=== PATIENT | female | born 1930 ===

== ENCOUNTER 2016-10-07 11:12 | Inpatient (IN) | payer MEDICARE, MEDICAID ==
[2016-10-07] MEDS ORDERED: Albuterol-Ipratrop 3 mg / 0.5 (3 ml) UD INH STA (11:32)
--- NOTE | 2016-10-07 11:38 | ED PDOC ---
HPI: General Adult Time Seen by Provider: 10/07/16 11:21 Chief Complaint (Nursing): Weakness/Neurological Deficit Chief Complaint (Provider): Weakness History Per: Patient History/Exam Limitations: clinical condition Onset/Duration Of Symptoms: Days (2) Have you had recent travel within the past 21 days to any of the following countries: [place], [place], [place] or [place]?: No Current Symptoms Are (Timing): Still Present Additional Complaint(s): Pt. has had fever, dehydration, weakness for 2 days. [facility] as she is not eating as well. Pt. with dementia so baseline decreased responsiveness. Limited history and physical. Has mehta in place. Past Medical History Reviewed: Nursing Documentation, Vital Signs Vital Signs: Last Vital Signs Temp 99.3 F 10/07/16 11:48 Pulse 104 H 10/07/16 12:52 Resp 16 10/07/16 12:52 BP 123/73 10/07/16 12:52 Pulse Ox 98 10/07/16 13:45 - Medical History PMH: Alzheimer's Disease, Anxiety, Dementia, Depression, Diabetes, HTN, Hypercholesterolemia, Chronic Kidney Disease - Family History Family History: States: Unknown Family Hx - Living Arrangements Living Arrangements: Assisted/Assist Lvng - Social History Current smoker - smoking cessation education provided: No Alcohol: None Drugs: Denies - Home Medications Home Medications: Ambulatory Orders Medication Instructions Recorded Acetaminophen [Tylenol 325mg tab] 650 mg PO Q4H PRN 10/07/16 Acetaminophen [Tylenol 325mg tab] 650 mg PO Q4H PRN 10/07/16 Ascorbic Acid [Vitamin C 500 mg 500 mg PO DAILY 10/07/16 Tab] Aspirin [Aspirin Chewable] 81 mg PO DAILY 10/07/16 Atorvastatin [Lipitor] 10 mg PO HS 10/07/16 Bisacodyl [Fast Relief Laxative] 10 mg HI DAILY PRN 10/07/16 Divalproex [Depakote Sprinkles] 125 mg PO DAILY 10/07/16 Divalproex [Depakote Sprinkles] 125 mg PO QPM 10/07/16 Docusate [Colace] 200 mg PO DAILY 10/07/16 Donepezil [Aricept] 10 mg PO HS 10/07/16 Ergocalciferol (Vitamin D2) 50,000 unit PO WE 10/07/16 [Vitamin D2] Lactulose [Generlac] 30 ml PO BID 10/07/16 Losartan [Cozaar] 100 mg PO DAILY 10/07/16 Magnesium Hydroxide [Milk Of 30 ml PO HS PRN 10/07/16 Magnesia] Memantine [Namenda] 10 mg PO DAILY 10/07/16 Multivits,Ca,Minerals/Iron/FA 1 tab PO DAILY 10/07/16 [Thera-Tabs M Caplet] Mpdgj-[id number]-Lrin Ethyl Esters 1 GM 2 gm PO BID 10/07/16 [Lovaza] traMADol [Ultram] 50 mg PO Q12H 10/07/16 - Allergies Allergies/Adverse Reactions: Allergies Allergy/AdvReac Type Severity Reaction Status Date / Time Penicillins Allergy UNKNOWN Verified 07/06/16 02:35 Review of Systems Review Of Systems: ROS cannot be obtained secondary to pt's inabilty to answer questions. Physical Exam - Reviewed Nursing Documentation Reviewed: Yes Vital Signs Reviewed: Yes - Physical Exam Appears: Positive for: Uncomfortable Head Exam: Positive for: ATRAUMATIC, NORMAL INSPECTION, NORMOCEPHALIC Skin: Positive for: Normal Color, Warm, DRY Eye Exam: Positive for: PERRL ENT: Positive for: Other (?thrush mild oral ). Negative for: Nasal Congestion, Pharyngeal Erythema Neck: Positive for: Supple Cardiovascular/Chest: Positive for: Tachycardia. Negative for: Edema Respiratory: Positive for: Decreased Breath Sounds, Wheezing (mild b/l) Gastrointestinal/Abdominal: Positive for: Normal Exam, Soft. Negative for: Tenderness Back: Positive for: Other (sacral stage 1 ulcer/erythema). Negative for: L CVA Tenderness, R CVA Tenderness Extremity: Negative for: Tenderness, Pedal Edema Neurologic/Psych: Positive for: Other (pt. responsive to pain; not following commands; withdraws from pain) - Laboratory Results Result Diagrams: 10/07/16 11:57 10/07/16 12:49 Interpretation Of Abn Labs: trop mild elevation; probnp mild elevation; bun/cr elevation; wbc elevation - ECG ECG: Positive for: Interpreted By Me, Viewed By Me ECG Rhythm: Positive for: Sinus Tachycardia, Right Bundle Branch Block O2 Sat by Pulse Oximetry: 98 Pulse Ox Interpretation: Normal - Radiology X-Ray: Read By Radiologist X-Ray Interpretation: No Acute Disease - Progress ED Course And Treament: 1458: Stable. BP improving. Vitals improving. Pt. severe sepsis. Trop/ probnp elevation possble renal related and chronic cardiac issues. Dr. Bean made aware of findings. Will admit tele. Cardiology and Renal Consulted. Will give further orders when pt. reaches the floor. - Critical Care Total Time (In Min): 30 Documented Critical Care: Time excludes all time spent performint seperately billable procedures Disposition - Clinical Impression Clinical Impression: Severe sepsis, UTI (urinary tract infection), Renal insufficiency, Troponin I above reference range - Patient ED Disposition Is Patient to be Admitted: Yes Counseled Patient/Family Regarding: Studies Performed, Diagnosis - Disposition Disposition Time: 15:00 Condition: GUARDED - Pt Status Changed To: Hospital Disposition Of: Inpatient - Admit Certification Admit to Inpatient:: After my assessment, the patient will require hospitalization for at least two midnights. This is because of the severity of symptoms shown, intensity of services needed, and/or the medical risk in this patient being treated as an outpatient. - POA Present On Arrival: Pressure Ulcer (sacral stage 1)
[2016-10-07] MEDS ORDERED: Albuterol-Ipratrop 3 mg / 0.5 (3 ml) UD ONE (11:50)
[2016-10-07 11:57] LABS: ABG ALLEN TEST YES; ARTERIAL BLOOD GAS HCO3 25.6 mmol/L (21-28); ARTERIAL BLOOD GAS PH 7.49 (7.35-7.45); ARTERIAL BLOOD GAS PO2 67 mm/Hg (80-100)
[2016-10-07 12:28] LABS: BASO % 0.1 % (0.0-2.0); EOS % 0.1 % (0.0-4.0); HEMATOCRIT 59.2 % (34.0-47.0); LYMPH # 1.6 K/uL (1.0-4.3); MEAN CELL VOLUME 93.2 fl (81.0-99.0); MEAN CORPUSCULAR HEMOGLOBIN 30.5 pg (27.0-31.0); MEAN CORPUSCULAR HGB CONC 32.7 g/dL (33.0-37.0); MEAN PLATELET VOLUME 8.9 fl (7.2-11.7); MONO # 2.1 K/uL (0.0-0.8); MONO % 7.7 % (0.0-10.0); NEUT # 23.4 K/uL (1.8-7.0); NEUT % 86.1 % (50.0-75.0); NRBC % 0.1 % (0.0-0.0); PLATELET COUNT 289 K/uL (130-400); RED CELL DISTRIBUTION WIDTH 14.4 % (11.5-14.5); WHITE BLOOD COUNT 27.1 K/uL (4.8-10.8)
--- NOTE | 2016-10-07 12:42 | RAD ---
HISTORY: Sepsis Patient COMPARISON: Chest x-ray performed 07/28/14 TECHNIQUE: Chest, one view. FINDINGS: LUNGS: No focal consolidation. Please note that chest x-ray has limited sensitivity for the detection of pulmonary masses. PLEURA: No significant pleural effusion identified. No definite pneumothorax . CARDIOVASCULAR: Heart size appears within normal limits. Atherosclerotic calcifications of the aorta. OSSEOUS STRUCTURES: Degenerative changes of the spine. Acromioclavicular arthropathy. VISUALIZED UPPER ABDOMEN: Unremarkable. OTHER FINDINGS: None. IMPRESSION: No focal consolidation, significant pleural effusion, or definite pneumothorax identified.
[2016-10-07 12:58] LABS: PARTIAL THROMBOPLASTIN TIME 24.3 SECONDS (23.3-32.5)
[2016-10-07 12:59] LABS: RBC URINE 9 /hpf (0-3); URINE BACTERIA MANY (<OCC); URINE BILIRUBIN NEGATIVE (NEGATIVE); URINE BLOOD SMALL (NEGATIVE); URINE COLOR YELLOW (YELLOW); URINE GLUCOSE (UA) NEG (Normal); URINE KETONE NEGATIVE (NEGATIVE); URINE LEUKOCYTE ESTERASE LARGE Leu/uL (Negative); URINE PROTEIN >=500 mg/dL (NEGATIVE); URINE UROBILINOGEN 0.2-1.0 mg/dL (0.2-1.0); WBC CLUMPS RARE /hpf; WBC URINE 584 /hpf (0-5)
[2016-10-07 13:10] LABS: ALB/GLOB RATIO 1.1 (1.0-2.1); BILIRUBIN,TOTAL 1.1 mg/dl (0.2-1.3); CALCIUM 8.5 mg/dL (8.4-10.2); POTASSIUM 4.2 MMOL/L (3.6-5.0); TOTAL PROTEIN 5.7 G/DL (6.3-8.2)
[2016-10-07 13:36] LABS: TROPONIN I 0.177 ng/mL (0.00-0.120)
[2016-10-07] MEDS ORDERED: Sodium Chloride 0.9% 1,000 ML IV STA (13:42)
[2016-10-07] MEDS ORDERED: cefTRIAXone (Rocephin) 1 gm Inj IV ONE (13:52)
[2016-10-07 14:45] LABS: VENOUS BLOOD GAS BASE EXCESS -0.8 mmol/L (0.0-2.0); VENOUS BLOOD GAS PCO2 37 mmHg (40-60); VENOUS BLOOD PH 7.41 (7.32-7.43)
[2016-10-07 16:11] LABS: NEUTROPHIL 86 % (42-75); TOTAL CELLS COUNTED 100
[2016-10-07 18:48] VITALS: BMI 23.8
--- NOTE | 2016-10-07 20:05 | CP.PCM.CON ---
History of Present Illness - History of Present Illness History of Present Illness: pt seen and examined, full consult is dictated #[id number] 1. hypernatremia 2. roberto 3. Urosepsis check blood c/s, urine c/s c/w iv abx a sper ID c/w ivf Past Patient History - Tetanus Immunizations Tetanus Immunization: Unknown - Past Medical History & Family History Past Medical History?: Yes - Past Social History Smoking Status: Never Smoked - CARDIAC Hx Cardiac Disorders: Yes Hx Hypercholesterolemia: Yes Hx Hypertension: Yes - PULMONARY Hx Respiratory Disorders: No - NEUROLOGICAL Hx Neurological Disorder: Yes Hx Alzheimer's Disease: Yes Hx Dementia: Yes - HEENT Hx HEENT Problems: No - RENAL Hx Chronic Kidney Disease: Yes - ENDOCRINE/METABOLIC Hx Endocrine Disorders: Yes Hx Diabetes Mellitus Type 2: Yes - HEMATOLOGICAL/ONCOLOGICAL Hx Blood Disorders: Yes Hx AIDS: No Hx Hepatitis A: Yes (resolved) Hx Human Immunodeficiency Virus (HIV): No - INTEGUMENTARY Hx Dermatological Problems: No - MUSCULOSKELETAL/RHEUMATOLOGICAL Hx Musculoskeletal Disorders: Yes Hx Falls: No Hx Unsteady Gait: Yes - GASTROINTESTINAL Hx Gastrointestinal Disorders: No - GENITOURINARY/GYNECOLOGICAL Hx Genitourinary Disorders: Yes Other/Comment: Urinary retention and mehta catheter - PSYCHIATRIC Hx Psychophysiologic Disorder: Yes Hx Anxiety: Yes Hx Depression: Yes Hx Substance Use: No - SURGICAL HISTORY Hx Surgeries: Yes Other/Comment: Breast cancer. - ANESTHESIA Hx Anesthesia: Yes Hx Anesthesia Reactions: No Meds Allergies/Adverse Reactions: Allergies Allergy/AdvReac Type Severity Reaction Status Date / Time Penicillins Allergy UNKNOWN Verified 07/06/16 02:35 - Medications Medications: Current Medications Acetaminophen (Tylenol 650 Mg Supp) 650 mg [place] Q4 PRN PRN Reason: Fever >100.4 F Dextrose/Sodium Chloride (Dextrose 5%-0.45% Ns 500 Ml) 1,000 mls @ 90 mls/hr IV .Q11H7M [facility] Levofloxacin/Dextrose (Levaquin 750mg) 150 mls @ 100 mls/hr IVPB DAILY [facility] Ceftriaxone Sodium 1 gm/ (Sodium Chloride) 100 mls @ 100 mls/hr IVPB DAILY [facility] Vancomycin HCl 750 mg/ Sodium (Chloride) 250 mls @ 166.667 mls/hr IVPB Q12 [facility] Results - Vital Signs Recent Vital Signs: Last Vital Signs Temp 97.7 F 10/07/16 19:41 Pulse 99 H 10/07/16 19:41 Resp 22 10/07/16 19:41 BP 111/76 10/07/16 19:41 Pulse Ox 98 10/07/16 19:41 - Labs Result Diagrams: 10/07/16 11:57 10/07/16 12:49
[2016-10-08 07:22] LABS: MEAN CELL VOLUME 92.6 fl (81.0-99.0); MEAN CORPUSCULAR HEMOGLOBIN 30.6 pg (27.0-31.0); RED CELL DISTRIBUTION WIDTH 14.2 % (11.5-14.5); WHITE BLOOD COUNT 22.6 K/uL (4.8-10.8)
[2016-10-08 07:51] LABS: T4 5.13 ug/dl (5.5-11.0)
[2016-10-08 07:53] LABS: ALKALINE PHOSPHATASE 64 U/L (38-126); ALT/SGPT 89 U/L (9-52); AST/SGOT 62 U/L (14-36); BILIRUBIN,TOTAL 0.3 mg/dl (0.2-1.3); BLOOD UREA NITROGEN 36 mg/dl (7-17); CALCIUM 8.1 mg/dL (8.4-10.2); CARBON DIOXIDE 23 mmol/L (22-30); CHLORIDE 116 mmol/L (98-107); GFR AFRICAN-AMERICAN > 60; GLUCOSE,RANDOM 259 mg/dL (65-105); POTASSIUM 3.7 MMOL/L (3.6-5.0); SODIUM 152 mmol/l (132-148); TOTAL PROTEIN 5.2 G/DL (6.3-8.2)
[2016-10-08 08:04] LABS: THYROID STIMULATING HORMONE 0.81 mIU/ML (0.46-4.68)
--- NOTE | 2016-10-08 08:30 | CARD ---
APPROVED REPORT EKG Measurement Heart [id number] 120P [id number] <Conclusion> Sinus tachycardia with premature atrial complexes Right bundle branch block Left anterior fascicular block Bifascicular block Abnormal ECG
--- NOTE | 2016-10-08 08:51 | CON ---
DATE: 10/07/2016 The patient is located in room 403, bed 2. REQUESTING PHYSICIAN: Dr. Broderick Bean REASON FOR RENAL CONSULTATION: Hypernatremia, acute renal failure and urosepsis. Unable to get any history from the patient. Chart reviewed from the EMR and also from the chart from the [facility]. The patient is an 85-year-old elderly female with a past medical history significant for hyp ertension, diabetes, hyperlipidemia, chronic kidney disease, Alzheimer dementia who is resident of [facility], was sent from the [facility] with chief complaints of fever, dehydration an d weakness for 2 days and also not eating well. The patient has baseline dementia and decreased resp onsiveness. Chart reviewed and history obtained. PAST MEDICAL HISTORY: As above. PAST SURGICAL HISTORY: Unknown. ALLERGIES: ALLERGIC TO PENICILLIN. SOCIAL HISTORY: No smoking, no alcohol, no drugs. CURRENT MEDICATIONS: Include Rocephin 1 gram daily and IV fluids D5 half normal saline at 90 mL per hour and Levaquin 250 mg daily and vancomycin 750 mg q. 12 hours. MEDICATIONS FROM THE [facility]: Include as follows: Depakote 125 mg p.o. at bedtime and milk of magnesia, bisacodyl and tramadol, Lovaza, vitamin D2 50,000 units q. weekly and vitamin C 500 mg jackson y, multivitamins and Namenda, losartan, lactulose, Aricept, Colace and Lipitor and aspirin. PERSONAL HISTORY: The patient is a resident of [facility]. FAMILY HISTORY: Not significant. The patient received pneumococcal vaccine on 07/29/2014. REVIEW OF SYSTEMS: Significant for fever and weakness and dehydration and decreased p.o. intake. Al l other are reviewed and are negative. PHYSICAL EXAMINATION: VITAL SIGNS: Her blood pressure is 111/76, pulse 99, respirations 22, temperature 97.7, saturation 9 8%, height 5 feet 2 inches and weight is 130 pounds. GENERAL: The patient is an 85-year-old elderly female, moderately built, moderately nourish ed, not in acute distress. HEENT: Pupils normal, reactive to light and accommodation. Conjunctivae pink. Sclerae anicteric. Tongue is dry. NECK: Trachea is midline. LUNGS: Symmetric on both sides. Bilateral breath sounds present. No crackles. CARDIOVASCULAR: [place] at the fifth intercostal space, midclavicular line. S1 and S2 audible. No mur mur or gallop. ABDOMEN: Normal in appearance, soft, tympanic. No guarding, no rigidity, no hepatosplenomegaly. CENTRAL NERVOUS SYSTEM: The patient is arousable, not responding to verbal stimuli. EXTREMITIES: No cyanosis, no clubbing, no edema. SKIN: Turgor is slightly poor. LABORATORY DATA: Include as follows: As of 10/07/2016, WBC 27.1, hemoglobin 19.3, hematocrit is 59.2 , platelets 289, neutrophils 86, bands 1, lymphs 7, monocytes 6. PT 12.8, PTT 24.3. ABG, pH 7.49, p CO2 31, pO2 67, bicarbonate is 25.6, saturation 97.2. Sodium is 151, potassium 4.2, chloride 111, CO 2 22, BUN 48, creatinine 1.5, GFR is 33, glucose 278, calcium 8.5, total bili 1.1, AST 50, ALT 66, al kaline phosphatase 72. Troponin 0.177. ProBNP 6740. Total protein 5.7, albumin is 3. Urinalysis: Yellow, turbid and pH 8, specific gravity 1.016 and protein more than 500, glucose negative, ketones negative, blood small, nitrites negative, bilirubin is negative, urobilinogen 0.2-1.0, leukocyte est erase large, and RBC 9, WBC clumps rare and WBC 584, bacteria many. Chest x-ray as of 10/07/2016 impression: No focal consolidation, significant pleural effusion, no def inite pneumothorax identified. SUMMARY: The patient is an 85-year-old elderly female with a history of hypertension, diabetes, hype rlipidemia, dementia and with decreased p.o. intake and weakness and questionable fever and increased WBC count, increased BUN and creatinine and increased serum sodium. 1. Hypernatremia, most likely secondary to intravascular volume depletion and dehydration. 2. Renal failure. Picture consistent with prerenal azotemia. 3. Elevated WBC count, urinalysis consistent with urinary tract infection, cannot rule out urosepsis . 4. Dementia. 5. Dehydration. PLAN: Continue IV fluids D5 half normal saline. Try to correct serum sodium, 6-8 mEq per day at thi s time. Continue IV antibiotics, vancomycin and Levaquin, and adjust antibiotics as per the culture report. Check urine and blood culture reports also. I will consider an ultrasound of the kidneys if no improvement in the renal function. We will follow with you. Thank you for allowing me to participate in your patient's care. Overall prognosis is guarded. Shane Carty MD cc: [id number] TT: 10/08/2016 08:50:52 Confirmation # [id number] Dictation # [id number] en
--- NOTE | 2016-10-08 12:48 | CP.PCM.CON ---
History of Present Illness - History of Present Illness History of Present Illness: Full Note Dictated Sepsis with KERRIE DM(II)/HTN Dementia H/O Lt Breast malignancy Elevated Troponin level due to azotemia and hypoperfusion EKG of yesterday and one from 2015 unchanged Past Patient History - Tetanus Immunizations Tetanus Immunization: Unknown - Past Medical History & Family History Past Medical History?: Yes - Past Social History Smoking Status: Never Smoked - CARDIAC Hx Cardiac Disorders: Yes Hx Hypercholesterolemia: Yes Hx Hypertension: Yes - PULMONARY Hx Respiratory Disorders: No - NEUROLOGICAL Hx Neurological Disorder: Yes Hx Alzheimer's Disease: Yes Hx Dementia: Yes - HEENT Hx HEENT Problems: No - RENAL Hx Chronic Kidney Disease: Yes - ENDOCRINE/METABOLIC Hx Endocrine Disorders: Yes Hx Diabetes Mellitus Type 2: Yes - HEMATOLOGICAL/ONCOLOGICAL Hx Blood Disorders: Yes Hx AIDS: No Hx Hepatitis A: Yes (resolved) Hx Human Immunodeficiency Virus (HIV): No - INTEGUMENTARY Hx Dermatological Problems: No - MUSCULOSKELETAL/RHEUMATOLOGICAL Hx Musculoskeletal Disorders: Yes Hx Falls: No Hx Unsteady Gait: Yes - GASTROINTESTINAL Hx Gastrointestinal Disorders: No - GENITOURINARY/GYNECOLOGICAL Hx Genitourinary Disorders: Yes Other/Comment: Urinary retention and mehta catheter - PSYCHIATRIC Hx Psychophysiologic Disorder: Yes Hx Anxiety: Yes Hx Depression: Yes Hx Substance Use: No - SURGICAL HISTORY Hx Surgeries: Yes Other/Comment: Breast cancer. - ANESTHESIA Hx Anesthesia: Yes Hx Anesthesia Reactions: No Meds Allergies/Adverse Reactions: Allergies Allergy/AdvReac Type Severity Reaction Status Date / Time Penicillins Allergy UNKNOWN Verified 07/06/16 02:35 - Medications Medications: Current Medications Acetaminophen (Tylenol 650 Mg Supp) 650 mg [place] Q4 PRN PRN Reason: Fever >100.4 F Dextrose/Sodium Chloride (Dextrose 5%-0.45% Ns 500 Ml) 1,000 mls @ 90 mls/hr IV .Q11H7M [facility] Last Admin: 10/08/16 07:37 Dose: 90 mls/hr Ceftriaxone Sodium 1 gm/ (Sodium Chloride) 100 mls @ 100 mls/hr IVPB DAILY [facility] Last Admin: 10/08/16 09:40 Dose: 100 mls/hr Vancomycin HCl 750 mg/ Sodium (Chloride) 250 mls @ 166.667 mls/hr IVPB Q12 [facility] Last Admin: 10/08/16 09:41 Dose: 166.667 mls/hr Levofloxacin/Dextrose (Levaquin 250mg) 50 mls @ 50 mls/hr IVPB DAILY [facility] Last Admin: 10/08/16 09:39 Dose: 50 mls/hr Results - Vital Signs Recent Vital Signs: Last Vital Signs Temp 97.3 F L 10/08/16 12:24 Pulse 93 H 10/08/16 12:24 Resp 20 10/08/16 12:24 BP 131/87 10/08/16 12:24 Pulse Ox 96 10/08/16 12:24 - Labs Result Diagrams: 10/08/16 04:55 10/08/16 04:55 Labs: Laboratory Results - last 24 hr 10/08/16 10/08/16 10/08/16 04:55 04:55 06:47 WBC 22.6 H RBC 4.86 Hgb 14.9 D Hct 45.0 MCV 92.6 MCH 30.6 MCHC 33.0 RDW 14.2 Plt Count 177 D Sodium 152 H Potassium 3.7 Chloride 116 H Carbon Dioxide 23 Anion Gap 17 BUN 36 H Creatinine 0.7 Est GFR ( Amer) > 60 Est GFR (Non-Af Amer) > 60 Random Glucose 259 H Lactic Acid 1.8 Calcium 8.1 L Total Bilirubin 0.3 AST 62 H D ALT 89 H D Alkaline Phosphatase 64 Total Protein 5.2 L Albumin 2.6 L Globulin 2.6 Albumin/Globulin Ratio 1.0 Thyroxine (T4) 5.13 L TSH 3rd Generation 0.81
--- NOTE | 2016-10-08 13:06 | CON ---
DATE: 10/08/2016 She is hospitalized under Dr. Bean's care in room 403, bed 2. This 85-year-old female, a longstanding hypertensive and diabetic, who has developed dementia over last couple of years and [facility] a [facility], was brought to the Emergency Room o n developing further lethargy and listlessness and fever. In the Emergency Room, was found to have l actic acidosis and fever and this consultation was requested because of elevated troponins. The yevgeniy ent is an ex-smoker who has never complained of chest pain, never had a myocardial infarction or mansoor estive cardiac failure. The son was interviewed and he gives history of the patient requiring mastec kenn more than 12 years back on the right side, followed by a period of radiation and chemotherapy. The patient has never complained of chest pain and was never treated for pedal edema or sudden shortn ess of breath on exertion. PHYSICAL EXAMINATION: GENERAL: Shows an elderly, exhausted female, alert, but confused, does not seem to be aware of her s urroundings. VITAL SIGNS: Afebrile with a pulse rate of 68 beats per minute, regular, and a blood pressure of 124 /74 mmHg. Her jugular venous pressure was not elevated. EXTREMITIES: There was no pedal edema or sacral edema. Pedal pulses were feeble, but distinctly pre sent. NECK: There were no carotid bruits. HEART: The first and second heart sounds were normal. There was a very brief apical systolic murmur . No gallop rhythm. LUNGS: No rales. ABDOMEN: Soft. Her liver and spleen were not palpable. Her electrocardiogram showed sinus rhythm with a right bundle branch block and a left anterior hemibl ock with attendant ST-T abnormalities, a pattern which was seen on her electrocardiogram of 2015 as w vanda. LABORATORIES: Review shows a troponin level of 0.177 nanograms per mL at admission when she had a fe travis of 100.9 degrees Fahrenheit and a systolic blood pressure of 100 mmHg and a lactic acid level of 3.5 mEq per liter. The BUN and creatinine has significantly improved after hydration, the BUN going from 48 mg percent to 36 mg percent and creatinine from 1.5 to 0.7 mg percent. Her GFR now is greate r than 60 mL per minute, which was 33 mL per minute. IMPRESSION: At this time is that the troponin is elevated because of azotemia and reduced tissue per fusion, which is part and parcel of sepsis. She is stable from cardiovascular point of view and at t his juncture, no further intervention needs to be undertaken in this female with advanced dementia. Adrian Carnes MD cc: 23 TT: 10/08/2016 13:05:38 Confirmation # [id number] Dictation # [id number] en
--- NOTE | 2016-10-08 14:12 | CP.PCM.HP ---
History of Present Illness - History of Present Illness History of Present Illness: CC: Weakness. 85 y/o F [facility] resident brought to [facility] to be evaluated for weakness 2 days [employer] with no relief. Pt with generalized weakness associated to fever ( In ER TMAx 100.9 HR: 133). Worsening symptoms: Not eating well, Dehydration, Dementia. Aggravated factor : Pt refusing to eat, decreased responsiveness 2nd to Dementia. No SOB, CP, Abdominal pain, n/v/d, syncope, bleeding. PMHx: Alzheimer's, Dementia, Depression, Anxiety, HTN, DMII, Hypercholesterolemia, CKD, Hx. Breast Ca. CXR shows: No focal consolidation EKG: Sinus Tachycardia with premature atrial complexes, R BBB, Left anterior fascicular block, Bifascicular block. CBC wbc 27.1 , 22.6 , CMP Na 151 , 152 , BUN-Creat 48/1.5 , 36/1.7 , Troponin 0.1770 , Pro BNP 6740, Lactic acid 1.8 Present on Admission - Present on Admission Any Indicators Present on Admission: Yes Decubitus Ulcer Stage: I (L-S) Review of Systems - Review of Systems Systems not reviewed;Unavailable: Acuity of Condition, Dementia Past Patient History - Tetanus Immunizations Tetanus Immunization: Unknown - Past Medical History & Family History Past Medical History?: Yes Pertinent Family History: Unknown - Past Social History Smoking Status: Never Smoked Alcohol: None Drugs: Denies Home Situation {Lives}: Intermediate - CARDIAC Hx Cardiac Disorders: Yes Hx Hypercholesterolemia: Yes Hx Hypertension: Yes - PULMONARY Hx Respiratory Disorders: No - NEUROLOGICAL Hx Neurological Disorder: Yes Hx Alzheimer's Disease: Yes Hx Dementia: Yes - HEENT Hx HEENT Problems: No - RENAL Hx Chronic Kidney Disease: Yes - ENDOCRINE/METABOLIC Hx Endocrine Disorders: Yes Hx Diabetes Mellitus Type 2: Yes - HEMATOLOGICAL/ONCOLOGICAL Hx Blood Disorders: Yes Hx AIDS: No Hx Hepatitis A: Yes (resolved) Hx Human Immunodeficiency Virus (HIV): No - INTEGUMENTARY Hx Dermatological Problems: No Other/Comment: Sacral ulcer - MUSCULOSKELETAL/RHEUMATOLOGICAL Hx Musculoskeletal Disorders: Yes Hx Falls: No Hx Unsteady Gait: Yes - GASTROINTESTINAL Hx Gastrointestinal Disorders: No - GENITOURINARY/GYNECOLOGICAL Hx Genitourinary Disorders: Yes Other/Comment: Urinary retention and mehta catheter - PSYCHIATRIC Hx Psychophysiologic Disorder: Yes Hx Anxiety: Yes Hx Depression: Yes Hx Substance Use: No - SURGICAL HISTORY Hx Surgeries: Yes Other/Comment: Mastectomy-Breast cancer. - ANESTHESIA Hx Anesthesia: Yes Hx Anesthesia Reactions: No Meds Allergies/Adverse Reactions: Allergies Allergy/AdvReac Type Severity Reaction Status Date / Time Penicillins Allergy UNKNOWN Verified 07/06/16 02:35 Physical Exam - Constitutional Appears: No Acute Distress, Confused, Chronically Ill - Head Exam Head Exam: NORMAL INSPECTION - Eye Exam Eye Exam: PERRL - ENT Exam ENT Exam: Mucous Membranes Dry - Neck Exam Neck exam: Positive for: Normal Inspection - Respiratory Exam Respiratory Exam: NORMAL BREATHING PATTERN - Cardiovascular Exam Cardiovascular Exam: REGULAR RHYTHM, Systolic Murmur (1/6 LSB [place]) - GI/Abdominal Exam GI & Abdominal Exam: Normal Bowel Sounds, Soft, Tenderness (suprapubic) - Exam Additional comments: Mehta Cath - Extremities Exam Extremities exam: Positive for: normal inspection - Back Exam Back exam: NORMAL INSPECTION Additional comments: Sacral erythema. - Neurological Exam Additional comments: Not following commands but open eyes to verbal and tactile stimuli, generalized weakness. - Psychiatric Exam Psychiatric exam: Flat Affect - Skin Skin Exam: Warm Results - Vital Signs Recent Vital Signs: Last Vital Signs Temp 97.3 F L 10/08/16 12:24 Pulse 93 H 10/08/16 12:24 Resp 20 10/08/16 12:24 BP 131/87 10/08/16 12:24 Pulse Ox 96 10/08/16 12:24 reviewed Stephanie - Labs Result Diagrams: 10/09/16 09:47 10/09/16 09:47 Labs: Laboratory Results - last 24 hr 10/08/16 10/08/16 10/08/16 04:55 04:55 04:55 WBC 22.6 H RBC 4.86 Hgb 14.9 D Hct 45.0 MCV 92.6 MCH 30.6 MCHC 33.0 RDW 14.2 Plt Count 177 D Sodium 152 H Potassium 3.7 Chloride 116 H Carbon Dioxide 23 Anion Gap 17 BUN 36 H Creatinine 0.7 Est GFR ( Amer) > 60 Est GFR (Non-Af Amer) > 60 Random Glucose 259 H Lactic Acid Calcium 8.1 L Total Bilirubin 0.3 AST 62 H D ALT 89 H D Alkaline Phosphatase 64 Total Protein 5.2 L Albumin 2.6 L Globulin 2.6 Albumin/Globulin Ratio 1.0 25-OH Vitamin D Total 20.8 L Thyroxine (T4) 5.13 L TSH 3rd Generation 0.81 10/08/16 06:47 WBC RBC Hgb Hct MCV MCH MCHC RDW Plt Count Sodium Potassium Chloride Carbon Dioxide Anion Gap BUN Creatinine Est GFR ( Amer) Est GFR (Non-Af Amer) Random Glucose Lactic Acid 1.8 Calcium Total Bilirubin AST ALT Alkaline Phosphatase Total Protein Albumin Globulin Albumin/Globulin Ratio 25-OH Vitamin D Total Thyroxine (T4) TSH 3rd Generation reviewed J.P. - EKG Data EKG comments: reviewed J.P. - Imaging and Cardiology Chest x-ray Status: Report reviewed by me (SohaP.) Assessment & Plan (1) Severe sepsis Status: Acute Priority: High (2) UTI (urinary tract infection) Status: Acute Priority: High (3) KERRIE (acute kidney injury) Status: Acute Priority: High Comment: Dehydration. (4) Dementia Status: Chronic Priority: Medium (5) Type 2 diabetes mellitus Status: Chronic Priority: High (6) Hyperglycemia Status: Acute Priority: High (7) Hypernatremia Status: Acute - Assessment and Plan (Free Text) Plan: Continue Rocephin, Vanco, Levaquin and rest of Tx. f/u Echo, Pelvis, Renal U-S, Accu-check qid low coverage.Cardiology and Renal consult appreciated, f/u ID consult, Urology consult. - Date & Time Date: 10/08/16 Time: 11:15
--- NOTE | 2016-10-08 19:07 | CP.PCM.PN ---
Subjective - Date & Time of Evaluation Date of Evaluation: 10/08/16 Time of Evaluation: 19:06 - Subjective Subjective: pt seen and examined, follow up consult is dictated #[id number] 1. hypernatremai 2. prerenal azotemia/ KERRIE 3. UTI change ivf to D5w at 80 ml/hr bmp daily c/w iv abx Objective - Vital Signs/Intake and Output Vital Signs (last 24 hours): Temp Pulse Resp BP Pulse Ox 97.8 F 89 22 129/77 96 10/08/16 15:34 10/08/16 15:34 10/08/16 15:34 10/08/16 15:34 10/08/16 15:34 - Medications Medications: Current Medications Acetaminophen (Tylenol 650 Mg Supp) 650 mg IN Q4 PRN PRN Reason: Fever >100.4 F Ceftriaxone Sodium 1 gm/ (Sodium Chloride) 100 mls @ 100 mls/hr IVPB DAILY [facility] Last Admin: 10/08/16 09:40 Dose: 100 mls/hr Vancomycin HCl 750 mg/ Sodium (Chloride) 250 mls @ 166.667 mls/hr IVPB Q12 [facility] Last Admin: 10/08/16 09:41 Dose: 166.667 mls/hr Levofloxacin/Dextrose (Levaquin 250mg) 50 mls @ 50 mls/hr IVPB DAILY [facility] Last Admin: 10/08/16 09:39 Dose: 50 mls/hr Dextrose (Dextrose 5% In Water 1000 Ml) 1,000 mls @ 80 mls/hr IV .[id number] [facility] Stop: 10/10/16 19:05 - Labs Labs: 10/08/16 04:55 10/08/16 04:55 PT 12.8 SECONDS (9.6-11.2) H 10/07/16 12:33 INR 1.23 (0.92-1.08) H 10/07/16 12:33 APTT 24.3 SECONDS (23.3-32.5) 10/07/16 12:33
--- NOTE | 2016-10-09 01:32 | PN ---
DATE: 10/08/2016 LOCATION: The patient is located in room 403, bed 2. REQUESTED BY: Dr. Broderick Bean. REASON FOR RENAL CONSULTATION: Hyponatremia, acute renal failure and sepsis. HISTORY OF PRESENT ILLNESS: This is an 85-year-old elderly female with a past medical histo ry significant for dementia, anxiety, depression, diabetes, hypertension, hypercholesterolemia, chron ic kidney disease, [facility] with fever, dehydration and weakness for 2 days and decreased p.o. intake and the patient was found to have increased BUN and creatinine and also hy ponatremia and urine was very cloudy and consistent with possible urinary tract infection. The patie nt was started on IV fluids of D5 and half normal saline and IV antibiotics. The patient is not in a cute distress. The patient is more alert and awake today, not communicating verbally, not in distres s. PHYSICAL EXAMINATION: VITAL SIGNS: As follows: Blood pressure 130/79, pulse 85, respirations 22, temperature 97.6, satura tion 97%, height 5 feet 2 inches and weight is 130 pounds. GENERAL: The patient is an 85-year-old elderly female, moderately built, moderately nourished, not i n acute distress. HEENT: Pupils normal, reactive to light and accommodation. Conjunctivae pink. Sclerae anicteric. Tongue is dry. NECK: No thyroid enlargement. Trachea is midline. LUNGS: Symmetric on both sides. Bilateral breath sounds present. Clear on auscultation. CARDIOVASCULAR: [place] in the fifth intercostal space midclavicular line. S1 and S2 audible. No murm ur or gallop. ABDOMEN: Normal in appearance, soft, tympanic. No guarding, no rigidity. No hepatosplenomegaly. CENTRAL NERVOUS SYSTEM: The patient is awake, oriented x 0. Sensory system is grossly within normal limits. EXTREMITIES: Motor system, moving all extremities. No cyanosis, no clubbing, no edema. CURRENT MEDICATIONS: Include as follows: Rocephin 1 gram daily, IV fluids D5 and half normal saline per hour, Humalog for sliding scale, Levaquin 250 mg IV daily, Tylenol 650 mg suppository for fever more than 100.4 p.r.n., and vancomycin 750 mg q. 12 hours. LABORATORY DATA: Include as follows: As of 10/08/2016, WBC 22.6, hemoglobin 14.9, hematocrit is 45, and platelets 177. Sodium is 152, potassium 3.7, chloride 116, CO2 23, BUN 36, creatinine 0.7, and g lucose is 259, calcium 8.1, lactic acid is 1.8. Total bilirubin 0.3, AST 62, ALT 89, alkaline phosph atase is 64, total protein 5.2, albumin is 2.6, vitamin D total is 21 and 18, dioxin 5.1 and TSH is 0 .81. Other reports, blood culture x 2 negative day 1 and urine culture positive for gram-negative ro ds, more than 100,000 colony-forming units. Chest x-ray: No focal consolidation. SUMMARY: The patient is an 85-year-old elderly female with a history of hypertension, diabe sangita, hyperlipidemia, chronic kidney disease, depression, dementia, anxiety, resident of a nursing [facility], was admitted with fever, weakness and decreased p.o. intake for a few days and increased BUN and c reatinine and increased serum sodium. ASSESSMENT AND PLAN: 1. Hyponatremia, most likely secondary to intravascular volume depletion and dehydration. We will c hange IV fluids from D5 and half normal saline D5W at 80 mL per hour. 2. Urinary sepsis. 3. Acute renal failure, most likely secondary to intravascular volume depletion. 4. Status post hypotension secondary to sepsis, now blood pressure is improved. Repeat CBC, BMP in the a.m. and continue IV fluids D5W at 80 mL per hour. Discussed with the patient's syndromes. Thank you for allowing me to participate in your patient's care. Shane Carty MD cc: [id number] TT: 10/09/2016 01:31:40 Confirmation # [id number] Dictation # [id number] mn
--- NOTE | 2016-10-09 08:15 | CARD ---
APPROVED REPORT EXAM: Two-dimensional and M-mode echocardiogram with Doppler and color Doppler. Other Information Quality : FairRhythm : NSR Technically limited study due to Poor Echo window INDICATION Murmur +Troponin 2D DIMENSIONS IVSd0.91 (0.7-1.1cm)LVDd3.17 (3.9-5.9cm) LVOT Diameter2.12 (1.8-2.4cm)PWd1.15 (0.7-1.1cm) IVSs1.66 (0.8-1.2cm)LVDs1.84 (2.5-4.0cm) FS (%) 42.1 %PWs1.48 (0.8-1.2cm) M-Mode DIMENSIONS Left Atrium (MM)3.16 (2.5-4.0cm)Aortic Root3.09 (2.2-3.7cm) Aortic Cusp Exc.1.31 (1.5-2.0cm) Mitral Valve E/A ratio0.0 TDI E/Lateral E'0.0E/Medial E'0.0 LEFT VENTRICLE The left ventricle is normal size. There is normal left ventricular wall thickness. LVEF could not be evaluated but appears to be normal. Could not be evaluated well but, mosly normal Transmitral Doppler flow pattern is Grade I-abnormal relaxation pattern. RIGHT VENTRICLE The right ventricle is normal size. The right ventricular systolic function is normal. ATRIA The left atrium size is normal. The right atrium size is normal. AORTIC VALVE Poorly visualised. No aortic regurgitation is present. There is no aortic valvular stenosis. MITRAL VALVE Poorly visualised. Could not be examined. There is no mitral valve stenosis. There is no mitral valve regurgitation noted. TRICUSPID VALVE Poorly seen. There is no tricuspid valve regurgitation noted. PULMONIC VALVE The pulmonic valve is not well visualized. There is no pulmonic valvular regurgitation. GREAT VESSELS The aortic root is normal in size. Due to poor image quality, the IVC could not be assessed. PERICARDIAL EFFUSION The pericardium appears normal. <Conclusion> Echo window extremely poor due to chronic lung disease. Could not be evaluated well but, mosly normal LVEF could not be evaluated but appears to be normal. Transmitral Doppler flow pattern is Grade I-abnormal relaxation pattern.
--- NOTE | 2016-10-09 09:49 | CP.PCM.PN ---
Subjective - Date & Time of Evaluation Date of Evaluation: 10/09/16 Time of Evaluation: 09:30 - Subjective Subjective: Afebrile for > 24 hrs Confused (Pt has dementia) Sinus rhythm at physiologic rates No signs of CHF Echo images very poor , due to COPD LV syst function normal Stable from cardiac point of view. Objective - Vital Signs/Intake and Output Vital Signs (last 24 hours): Temp Pulse Resp BP Pulse Ox 97.6 F 61 18 118/71 98 10/09/16 08:14 10/09/16 08:14 10/09/16 08:14 10/09/16 08:14 10/09/16 08:14 Intake and Output: 10/09/16 10/09/16 06:59 18:59 Intake Total 1050 Output Total 350 Balance 700 - Medications Medications: Current Medications Acetaminophen (Tylenol 650 Mg Supp) 650 mg ID Q4 PRN PRN Reason: Fever >100.4 F Enoxaparin Sodium (Lovenox) 40 mg SC DAILY [facility] PRN Reason: Protocol Ceftriaxone Sodium 1 gm/ (Sodium Chloride) 100 mls @ 100 mls/hr IVPB DAILY [facility] Last Admin: 10/08/16 09:40 Dose: 100 mls/hr Vancomycin HCl 750 mg/ Sodium (Chloride) 250 mls @ 166.667 mls/hr IVPB Q12 [facility] Last Admin: 10/08/16 20:53 Dose: 166.667 mls/hr Levofloxacin/Dextrose (Levaquin 250mg) 50 mls @ 50 mls/hr IVPB DAILY [facility] Last Admin: 10/08/16 09:39 Dose: 50 mls/hr Dextrose (Dextrose 5% In Water 1000 Ml) 1,000 mls @ 80 mls/hr IV .[id number] [facility] Stop: 10/10/16 19:05 Last Admin: 10/08/16 20:56 Dose: 80 mls/hr Insulin Human Lispro (Humalog) 0 units SC ACHS [facility] PRN Reason: Protocol - Labs Labs: 10/08/16 04:55 10/08/16 04:55 PT 12.8 SECONDS (9.6-11.2) H 10/07/16 12:33 INR 1.23 (0.92-1.08) H 10/07/16 12:33 APTT 24.3 SECONDS (23.3-32.5) 10/07/16 12:33
[2016-10-09 09:51] LABS: MEAN CELL VOLUME 93.2 fl (81.0-99.0); MEAN CORPUSCULAR HEMOGLOBIN 29.9 pg (27.0-31.0); MEAN CORPUSCULAR HGB CONC 32.1 g/dL (33.0-37.0); RED CELL DISTRIBUTION WIDTH 14.6 % (11.5-14.5); WHITE BLOOD COUNT 15.2 K/uL (4.8-10.8)
[2016-10-09] MEDS: Insulin Lispro (humaLOG) 100 Units/ml Inj SC SCH ×4 (09:51→22:18)
[2016-10-09 10:18] LABS: BLOOD UREA NITROGEN 29 mg/dl (7-17); CALCIUM 8.1 mg/dL (8.4-10.2); CARBON DIOXIDE 26 mmol/L (22-30); CHLORIDE 111 mmol/L (98-107); CHOLESTEROL 125 mg/dL (0-199); GFR AFRICAN-AMERICAN > 60; GLUCOSE,RANDOM 195 mg/dL (65-105); POTASSIUM 3.7 MMOL/L (3.6-5.0); SODIUM 147 mmol/l (132-148)
[2016-10-09 10:38] LABS: T4 5.78 ug/dl (5.5-11.0)
[2016-10-09 10:52] LABS: THYROID STIMULATING HORMONE 1.38 mIU/ML (0.46-4.68)
--- NOTE | 2016-10-09 11:10 | PQF GENQUE ---
Dr. Bean, Etiology of Sepsis: if known: i.e Sepsis due to a mehta catheter related UTI versus Sepsis due to a UTI etc.? OR: Unable to determine ER note: [facility]Has mehta in place. Multiple physican notes include the diagnosis of Sepsis/Severe Sepsis Renal note: diagnoses include: Urinary sepsis Urine culture: positive for Proteus This form is a permanent part of the medical record Clarification of your documentation is requested to better reflect the severity of illness and intensity of treatment of your patient. Indicators present [] Specify: [] [] Specify: [] [] Specify: [] [] Specify: [] Location in the medical record that reflects the above clinical findings: [] Treatment Provided: [] PHYSICIAN'S RESPONSE Based on your medical judgment of the clinical indicators outlined above please clarify the following: [] Practitioner response [] If unable to determine, please check the box, sign and date. Present On Admission (POA) Indicator: [] Present at the time of admission [] Not present at the time of admission [] Clinically Undetermined In responding to this query, please exercise your independent professional judgment. The fact that a question is asked does not imply that any particular answer is desired or expected. Thank you for your clarification on this documentation. If you have any questions please call. * Thank you, Elisa Stack RN BSN ext. #[phone] MTDD
--- NOTE | 2016-10-09 13:35 | CP.PCM.PN ---
Subjective - Date & Time of Evaluation Date of Evaluation: 10/09/16 Time of Evaluation: 11:00 - Subjective Subjective: F/U Sepsis/UTI Pt awake, confuse, son at bed side, able to talk few words. Objective - Vital Signs/Intake and Output Vital Signs (last 24 hours): Temp Pulse Resp BP Pulse Ox 97.4 F L 66 20 131/69 96 10/09/16 12:20 10/09/16 12:20 10/09/16 12:20 10/09/16 12:20 10/09/16 12:20 Intake and Output: 10/09/16 10/09/16 06:59 18:59 Intake Total 1050 1000 Output Total 350 Balance 700 1000 - Medications Medications: Current Medications Acetaminophen (Tylenol 650 Mg Supp) 650 mg MA Q4 PRN PRN Reason: Fever >100.4 F Enoxaparin Sodium (Lovenox) 40 mg SC DAILY [facility] PRN Reason: Protocol Ceftriaxone Sodium 1 gm/ (Sodium Chloride) 100 mls @ 100 mls/hr IVPB DAILY [facility] Last Admin: 10/09/16 09:48 Dose: 100 mls/hr Vancomycin HCl 750 mg/ Sodium (Chloride) 250 mls @ 166.667 mls/hr IVPB Q12 [facility] Last Admin: 10/09/16 09:48 Dose: 166.667 mls/hr Levofloxacin/Dextrose (Levaquin 250mg) 50 mls @ 50 mls/hr IVPB DAILY [facility] Last Admin: 10/09/16 09:49 Dose: 50 mls/hr Dextrose (Dextrose 5% In Water 1000 Ml) 1,000 mls @ 80 mls/hr IV .[id number] [facility] Stop: 10/10/16 19:05 Last Admin: 10/09/16 09:50 Dose: 80 mls/hr Insulin Human Lispro (Humalog) 0 units SC ACHS [facility] PRN Reason: Protocol Last Admin: 10/09/16 09:51 Dose: 1 unit - Labs Labs: 10/09/16 09:47 10/09/16 09:47 PT 12.8 SECONDS (9.6-11.2) H 10/07/16 12:33 INR 1.23 (0.92-1.08) H 10/07/16 12:33 APTT 24.3 SECONDS (23.3-32.5) 10/07/16 12:33 - Constitutional Appears: No Acute Distress, Chronically Ill - Head Exam Head Exam: NORMAL INSPECTION - Eye Exam Eye Exam: PERRL - ENT Exam ENT Exam: Mucous Membranes Dry - Neck Exam Neck Exam: Normal Inspection - Respiratory Exam Respiratory Exam: NORMAL BREATHING PATTERN - Cardiovascular Exam Cardiovascular Exam: REGULAR RHYTHM, Murmur (systolic 1/6 LSB [place]) - GI/Abdominal Exam GI & Abdominal Exam: Soft, Tenderness (Minimal suprapubic), Normal Bowel Sounds - Extremities Exam Extremities Exam: Normal Inspection - Back Exam Back Exam: NORMAL INSPECTION - Neurological Exam Additional comments: Not following commands, open eyes to verbal and tactile stimuli, generalized weakness. - Psychiatric Exam Psychiatric exam: Flat Affect - Skin Skin Exam: Warm Assessment and Plan (1) Severe sepsis Status: Acute (2) UTI (urinary tract infection) Assessment & Plan: E Coli. Status: Acute (3) KERRIE (acute kidney injury) Status: Acute (4) Dementia Status: Chronic (5) Type 2 diabetes mellitus Status: Chronic (6) Hyperglycemia Status: Acute (7) Hypernatremia Status: Acute - Assessment and Plan (Free Text) Plan: Continue Rocephin, IV fluid and rest of Tx.
[2016-10-09] MEDS: Enoxaparin 40 mg Syringe SC SCH (13:58)
--- NOTE | 2016-10-09 16:37 | US ---
HISTORY: suprapubic tenderness COMPARISON: None available. TECHNIQUE: Transabdominal FINDINGS: UTERUS: Examination limited due to inadequately distended urinary bladder. Measures 9.1 x 3.6 x 5.2 cm. No gross mass identified. ENDOMETRIUM: Measures 6 mm in diameter. Unremarkable. CERVIX: No cervical abnormality identified. RIGHT OVARY: Not visualized LEFT OVARY: Not visualized FREE FLUID: No significant free fluid noted. OTHER FINDINGS: None. IMPRESSION: Limited examination. No uterine mass identified. Ovaries not visualized.
--- NOTE | 2016-10-09 16:38 | US ---
PROCEDURE: Ultrasound of the Kidneys HISTORY: tenderness COMPARISON: None available. TECHNIQUE: Sonogram of the kidneys. FINDINGS: RIGHT KIDNEY: Measures: 10.0 cm. Normal in size, contour and echogenicity. No stone, solid mass lesion or hydronephrosis visualized. LEFT KIDNEY: Measures: 10.9 cm. Normal in size, contour and echogenicity. No stone, solid mass lesion or hydronephrosis visualized. OTHER FINDINGS: Attempted evaluation of urinary bladder grossly limited by absence of bladder distention IMPRESSION: Unremarkable renal ultrasound examination.
--- NOTE | 2016-10-09 17:57 | CP.PCM.CON ---
History of Present Illness - History of Present Illness History of Present Illness: 85 yo female with Hx Dementia is admitted with fever and lethargy Found to have KERRIE and sepsis likely secondary to UTI IV antibiotics started empirically allergy to PCN On Rocephin without ill effects awake non verbal denies chest pain by nodding Bedridden and weak at base line PMH: Alzheimer's Disease, Anxiety, Dementia, Depression, Diabetes, HTN, Hypercholesterolemia, Chronic Kidney Disease Review of Systems - Constitutional Constitutional: As Per HPI, Anorexia, Daytime Sleepiness, Malaise - EENT Eyes: absent: As Per HPI, Blind Spots, Blurred Vision, Change in Vision, Decreased Night Vision, Diplopia, Discharge, Dry Eye, Exophthalmos, Floaters, Irritation, Itchy Eyes, Loss of Peripheral Vision, Pain, Photophobia, Requires Corrective Lenses, Sees Flashes, Spots in Vision, Tunnel Vision, Other Visual Disturbances, Loss of Vision, Other Ears: absent: As Per HPI, Decreased Hearing, Ear Discharge, Ear Pain, Tinnitus, Abnormal Hearing, Disequilibrium, Dizziness, Other Nose/Mouth/Throat: absent: As Per HPI, Epistaxis, Nasal Congestion, Nasal Discharge, Nasal Obstruction, Nasal Trauma, Nose Pain, Post Nasal Drip, Sinus Pain, Sinus Pressure, Bleeding Gums, Change in Voice, Dental Pain, Dry Mouth, Dysphagia, Halitosis, Hoarsness, Lip Swelling, Mouth Lesions, Mouth Pain, Odynophagia, Sore Throat, Throat Swelling, Tongue Swelling, Facial Pain, Neck Pain, Neck Mass, Other - Breasts Breasts: absent: As Per HPI, Change in Shape, Mass, Pain, Nipple Discharge, Nipple Inversion, Skin Changes, Swelling, Other - Cardiovascular Cardiovascular: absent: As Per HPI, Acrocyanosis, Chest Pain, Chest Pain at Rest , Chest Pain with Activity, Claudication, Diaphoresis, Dyspnea, Dyspnea on Exertion, Edema, Irregular Heart Rhythm, Pain Radiating to Arm/Neck/Jaw, Leg Edema, Leg Ulcers, Lightheadedness, Orthopnea, Palpitations, Paroxysmal Nocturnal Dyspnea, Pedal Edema, Radiating Pain, Rapid Heart Rate, Slow Heart Rate, Syncope, Other - Respiratory Respiratory: absent: As Per HPI, Cough, Dyspnea, Hemoptysis, Dyspnea on Exertion , Wheezing, Snoring, Stridor, Pain on Inspiration, Chest Congestion, Excessive Mucous Production, Change in Mucous Color, Pain with Coughing, Other - Gastrointestinal Gastrointestinal: As Per HPI - Genitourinary Genitourinary: As Per HPI - Reproductive: Female Reproductive:Female: absent: As Per HPI, Amenorrhea, Amenorrhea/ Control, Currently Menstual, Cycle <21 Days, Cycle >35 Days, Cycle Variable, Menses 1-7 Days, Menses >/= 8 Days, Menses Variable, Cycle > 4 Weeks Between, No Menses for 6 Months, Heavy Menses, Light Menses, Normal Menses, Spotting Between Cycles , S/P Hysterectomy, Menopausal, Post Menopausal, Premenarche, Abnormal Vaginal Bleeding, Dysmenorrhea, Dyspareunia, Genital Lesions, Genital Pruritis, Pelvic Pain, Prolapse Symptoms, Sexual Dysfunction, Vaginal Discharge, Vaginal Dryness , Vaginal Odor, Vaginal Pruritis, Other - Menstruation Menstruation: absent: As Per HPI, Amenorrhea, Amenorrhea/ Control, Currently Menstual, Cycle <21 Days, Cycle >35 Days, Cycle Variable, Menses 1-7 Days, Menses >/= 8 Days, Menses Variable, Cycle > 4 Weeks Between, No Menses for 6 Months, Heavy Menses, Light Menses, Normal Menses, Spotting Between Cycles , S/P Hysterectomy, Menopausal, Post Menopausal, Premenarche, Abnormal Vaginal Bleeding, Dysmenorrhea, Other - Musculoskeletal Musculoskeletal: As Per HPI - Integumentary Integumentary: absent: As Per HPI, Acne, Alopecia, Bleeding Lesions, Change in Hair, Change in Nails, Change in Pigmentation, Changing Lesions, Dry Skin, Erythema, Furuncle, Hirsutism, Lesions, New Lesions, Non-Healing Lesions, Photosensitivity, Pruritus, Rash, Skin Pain, Skin Ulcer, Sores, Striae, Swelling , Unusual Bruising, Wounds, Jaundice, Other - Neurological Neurological: As Per HPI - Psychiatric Psychiatric: absent: As Per HPI, Abnormal Sleep Pattern, Anhedonia, Anxiety, Auditory Hallucinations, Behavioral Changes, Change in Appetite, Change in Libido, Confusion, Depression, Difficulty Concentrating, Hallucinations, Homicidal Ideation, Hopelessness, Irritability, Memory Loss, Mood Swings, Panic Attacks, Paranoia, Suicidal Ideation, Visual Hallucinations, Tactile Hallucinations, Other - Endocrine Endocrine: absent: As Per HPI, Change in Body Appearance, Change in Libido, Cold Intolorance, Deepening of Voice, Excessive Sweating, Fatigue, Flushing, Heat Intolorance, Increase in Ring/Shoe/Hat Size, Palpitations, Polydipsia, Polyphagia, Polyuria, Other - Hematologic/Lymphatic Hematologic: absent: As Per HPI, Easy Bleeding, Easy Bruising, Lymphadenopathy, Other Past Patient History - Tetanus Immunizations Tetanus Immunization: Unknown - Past Medical History & Family History Past Medical History?: Yes - Past Social History Smoking Status: Never Smoked Alcohol: None Drugs: Denies Home Situation {Lives}: Fdc - CARDIAC Hx Hypercholesterolemia: Yes Hx Hypertension: Yes - PULMONARY Hx Respiratory Disorders: No - NEUROLOGICAL Hx Neurological Disorder: Yes Hx Alzheimer's Disease: Yes Hx Dementia: Yes - HEENT Hx HEENT Problems: No - RENAL Hx Chronic Kidney Disease: Yes - ENDOCRINE/METABOLIC Hx Diabetes Mellitus Type 2: Yes - HEMATOLOGICAL/ONCOLOGICAL Hx Blood Disorders: Yes Hx AIDS: No Hx Hepatitis A: Yes (resolved) Hx Human Immunodeficiency Virus (HIV): No - INTEGUMENTARY Hx Dermatological Problems: No Other/Comment: Sacral ulcer - MUSCULOSKELETAL/RHEUMATOLOGICAL Hx Musculoskeletal Disorders: Yes Hx Falls: No Hx Unsteady Gait: Yes - GASTROINTESTINAL Hx Gastrointestinal Disorders: No - GENITOURINARY/GYNECOLOGICAL Hx Genitourinary Disorders: Yes Other/Comment: Urinary retention and mehta catheter - PSYCHIATRIC Hx Psychophysiologic Disorder: Yes Hx Anxiety: Yes Hx Depression: Yes Hx Substance Use: No - SURGICAL HISTORY Hx Surgeries: Yes Other/Comment: Mastectomy-Breast cancer. - ANESTHESIA Hx Anesthesia: Yes Hx Anesthesia Reactions: No Meds Allergies/Adverse Reactions: Allergies Allergy/AdvReac Type Severity Reaction Status Date / Time Penicillins Allergy UNKNOWN Verified 07/06/16 02:35 - Medications Medications: Current Medications Acetaminophen (Tylenol 650 Mg Supp) 650 mg NV Q4 PRN PRN Reason: Fever >100.4 F Enoxaparin Sodium (Lovenox) 40 mg SC DAILY SHERRELL PRN Reason: Protocol Last Admin: 10/09/16 13:58 Dose: 40 mg Ceftriaxone Sodium 1 gm/ (Sodium Chloride) 100 mls @ 100 mls/hr IVPB DAILY [facility] Last Admin: 10/09/16 09:48 Dose: 100 mls/hr Dextrose (Dextrose 5% In Water 1000 Ml) 1,000 mls @ 80 mls/hr IV .[id number] [facility] Stop: 10/10/16 19:05 Last Admin: 10/09/16 09:50 Dose: 80 mls/hr Insulin Human Lispro (Humalog) 0 units SC ACHS SHERRELL PRN Reason: Protocol Last Admin: 10/09/16 17:26 Dose: 1 unit Physical Exam - Constitutional Appears: Toxic, Confused, Cachectic, Chronically Ill - Head Exam Head Exam: ATRAUMATIC, NORMAL INSPECTION, NORMOCEPHALIC - Eye Exam Eye Exam: PERRL. absent: Scleral icterus - ENT Exam ENT Exam: Mucous Membranes Dry, Normal External Ear Exam - Neck Exam Neck exam: Negative for: Lymphadenopathy, Thyromegaly - Respiratory Exam Respiratory Exam: Decreased Breath Sounds, Rhonchi - Cardiovascular Exam Cardiovascular Exam: Tachycardia, REGULAR RHYTHM, +S1, +S2, Systolic Murmur - GI/Abdominal Exam GI & Abdominal Exam: Diminished Bowel Sounds, Soft. absent: Organomegaly, Pulsatile Mass, Rebound, Rigid, Tenderness - Rectal Exam Rectal Exam: Deferred - Exam Exam: NORMAL INSPECTION - Extremities Exam Extremities exam: Positive for: pedal edema, pedal pulses present. Negative for : calf tenderness, tenderness - Back Exam Back exam: absent: CVA tenderness (L), CVA tenderness (R), paraspinal tenderness - Neurological Exam Neurological exam: Alert, Oriented x3 - Psychiatric Exam Psychiatric exam: Depressed - Skin Skin Exam: Dry, Intact Results - Vital Signs Recent Vital Signs: Last Vital Signs Temp 97.6 F 10/09/16 16:00 Pulse 76 10/09/16 16:00 Resp 22 10/09/16 16:00 BP 120/70 10/09/16 16:00 Pulse Ox 98 10/09/16 16:00 - Labs Result Diagrams: 10/09/16 09:47 10/09/16 09:47 Labs: Laboratory Results - last 24 hr 10/08/16 10/09/16 10/09/16 22:26 05:34 09:47 WBC 15.2 H RBC 4.93 Hgb 14.8 Hct 46.0 MCV 93.2 MCH 29.9 MCHC 32.1 L RDW 14.6 H Plt Count 162 Sodium Potassium Chloride Carbon Dioxide Anion Gap BUN Creatinine Est GFR ( Amer) Est GFR (Non-Af Amer) POC Glucose (mg/dL) 213 H 199 H Random Glucose Hemoglobin A1c Calcium Triglycerides Cholesterol LDL Cholesterol Direct HDL Cholesterol Thyroxine (T4) TSH 3rd Generation 10/09/16 10/09/16 10/09/16 09:47 09:47 11:29 WBC RBC Hgb Hct MCV MCH MCHC RDW Plt Count Sodium 147 Potassium 3.7 Chloride 111 H Carbon Dioxide 26 Anion Gap 14 BUN 29 H Creatinine 0.5 L Est GFR ( Amer) > 60 Est GFR (Non-Af Amer) > 60 POC Glucose (mg/dL) 200 H Random Glucose 195 H Hemoglobin A1c 6.1 Calcium 8.1 L Triglycerides 119 D Cholesterol 125 LDL Cholesterol Direct 56 HDL Cholesterol 46 Thyroxine (T4) 5.78 TSH 3rd Generation 1.38 10/09/16 16:10 WBC RBC Hgb Hct MCV MCH MCHC RDW Plt Count Sodium Potassium Chloride Carbon Dioxide Anion Gap BUN Creatinine Est GFR ( Amer) Est GFR (Non-Af Amer) POC Glucose (mg/dL) 175 H Random Glucose Hemoglobin A1c Calcium Triglycerides Cholesterol LDL Cholesterol Direct HDL Cholesterol Thyroxine (T4) TSH 3rd Generation Assessment & Plan (1) KERRIE (acute kidney injury) Status: Acute Priority: High (2) Hyperglycemia Status: Acute Priority: High (3) Hypernatremia Status: Acute (4) Severe sepsis Status: Acute Priority: High (5) Troponin I above reference range Status: Acute (6) UTI (urinary tract infection) Status: Acute Priority: High (7) Abrasion of vulva Status: Acute - Assessment and Plan (Free Text) Assessment: cont empiric IV antibiotic rx as ordered cautious hydration
--- NOTE | 2016-10-09 19:36 | CP.PCM.PN ---
Subjective - Date & Time of Evaluation Date of Evaluation: 10/09/16 Time of Evaluation: 19:36 - Subjective Subjective: pt seenand examined, follow up consult is dictated #[id number] Objective - Vital Signs/Intake and Output Vital Signs (last 24 hours): Temp Pulse Resp BP Pulse Ox 97.4 F L 73 20 135/80 97 10/09/16 19:28 10/09/16 19:28 10/09/16 19:28 10/09/16 19:28 10/09/16 19:28 Intake and Output: 10/09/16 10/10/16 18:59 06:59 Intake Total 1000 Balance 1000 - Medications Medications: Current Medications Acetaminophen (Tylenol 650 Mg Supp) 650 mg DC Q4 PRN PRN Reason: Fever >100.4 F Enoxaparin Sodium (Lovenox) 40 mg SC DAILY SHERRELL PRN Reason: Protocol Last Admin: 10/09/16 13:58 Dose: 40 mg Ceftriaxone Sodium 1 gm/ (Sodium Chloride) 100 mls @ 100 mls/hr IVPB DAILY [facility] Last Admin: 10/09/16 09:48 Dose: 100 mls/hr Dextrose (Dextrose 5% In Water 1000 Ml) 1,000 mls @ 80 mls/hr IV .[id number] [facility] Stop: 10/10/16 19:05 Last Admin: 10/09/16 09:50 Dose: 80 mls/hr Insulin Human Lispro (Humalog) 0 units SC ACHS SHERRELL PRN Reason: Protocol Last Admin: 10/09/16 17:26 Dose: 1 unit - Labs Labs: 10/09/16 09:47 10/09/16 09:47 PT 12.8 SECONDS (9.6-11.2) H 10/07/16 12:33 INR 1.23 (0.92-1.08) H 10/07/16 12:33 APTT 24.3 SECONDS (23.3-32.5) 10/07/16 12:33
--- NOTE | 2016-10-09 23:18 | PN ---
DATE: 10/09/2016 The patient is located in room 403, bed 2. REQUESTED BY: Dr. Broderick Bean. REASON FOR RENAL CONSULTATION: Acute renal failure, urosepsis and hyponatremia for evaluation. HISTORY OF PRESENT ILLNESS: The patient is an 85-year-old elderly female with a past medical history significant for hypertension, diabetes, hyperlipidemia, depression, dementia, anxiety, resident of [facility], was admitted with chief complaints of fever and dehydration, weakness and decreased p.o. intake for a few days prior to the admission and the patient was found to have high serum sodium and also increased BUN and creatinine, urinalysis consistent with urinary tract infection on admission. The patient is more alert and awake, but not responding to verbal stimuli. The patient is not in acute distress, on IV fluids and IV antibiotic at this time. PHYSICAL EXAMINATION: VITAL SIGNS: As follows: Blood pressure 135/80, pulse 73, respirations 20, temperature 97.4, saturation 97%, height 5 feet 2 inches and weight is 130 pounds. GENERAL: The patient is an 85-year-old elderly female, moderately built, moderately nourished, not in acute distress. HEENT: Pupils normal, reactive to light and accommodation. Conjunctivae pink. Sclerae anicteric. Tongue is moist. NECK: Trachea is midline. LUNGS: Symmetric on both sides. Bilateral breath sounds present. Clear on auscultation. CARDIOVASCULAR: [place] in the fifth intercostal space midclavicular line. S1 and S2 audible. No murmur, no gallop. ABDOMEN: Normal in appearance, soft, tympanic. No guarding, no rigidity. No hepatosplenomegaly. CENTRAL NERVOUS SYSTEM: The patient is awake, not responding to verbal stimuli. EXTREMITIES: No cyanosis, no clubbing, no edema. The patient is moving all extremities. CURRENT MEDICATIONS: Include as follows: Rocephin 1 gram daily, IV fluids D5W at 80 mL per hour and Humalog for sliding scale, Lovenox 40 mg subQ daily, Tylenol 650 mg suppository q. 4 hours p.r.n. for temperature more than 100.4. LABORATORY DATA: Include as follows: As of 10/09/2016, WBC 15.2, hemoglobin 14.8, hematocrit is 46, platelet 162. Sodium 147, potassium 3.7, chloride 111, CO2 of 26, BUN 29, creatinine 0.5, glucose 195, calcium 8.1, hemoglobin A1c 6.1. Cholesterol 125, triglycerides is 119, HDL is 46 and LDL is 56 and thyroxine is 5.78 and TSH is 1.38, LDL 56, HDL is 46. Other laboratory data: Blood culture x 2 negative day #2 and urine culture identified as Proteus mirabilis, more than 100,000 colony-forming units per mL and sensitive to all antibiotics except nitrofurantoin and _ sensitive to imipenem. SUMMARY: The patient is an 85-year-old elderly female with a history of hypertension, diabetes, hyperlipidemia, dementia, anxiety and depression, a resident of a [facility], was admitted with increased BUN and creatinine and increased serum sodium. 1. Hyponatremia secondary to intravascular depletion secondary to decreased p.o. intake. 2. Urinary tract infection. 3. Prerenal azotemia, acute renal failure. Renal function is improving nicely with IV hydration. Continue Rocephin. Proteus is sensitive to Rocephin. Repeat CBC, BMP in the a.m. We will follow with you. Thank you for allowing me to participate in your patient's care. Shane Carty MD cc: [id number] TT: 10/09/2016 23:17:38 Confirmation # [id number] Dictation # [id number] mn [email or web address]
[2016-10-10] MEDS: Insulin Lispro (humaLOG) 100 Units/ml Inj SC SCH ×2 (07:06→12:17)
[2016-10-10 08:30] VITALS: RESP 20
[2016-10-10] MEDS: Enoxaparin 40 mg Syringe SC SCH (10:28)
[2016-10-10 12:34] VITALS: O2SAT 98
[2016-10-10 12:52] LABS: HEMATOCRIT 42.9 % (34.0-47.0); MEAN CELL VOLUME 92.5 fl (81.0-99.0); MEAN CORPUSCULAR HEMOGLOBIN 30.6 pg (27.0-31.0); RED CELL DISTRIBUTION WIDTH 13.7 % (11.5-14.5); WHITE BLOOD COUNT 7.1 K/uL (4.8-10.8)
--- NOTE | 2016-10-10 12:56 | CP.PCM.PN ---
Subjective - Date & Time of Evaluation Date of Evaluation: 10/10/16 Time of Evaluation: 11:20 - Subjective Subjective: F/U Sepsis. Pt with eyes open, able to follows simple command, no appear in A/D, able to talk with singles words, confused. Objective - Vital Signs/Intake and Output Vital Signs (last 24 hours): Temp Pulse Resp BP Pulse Ox 97.4 F L 61 20 131/67 98 10/10/16 12:33 10/10/16 12:33 10/10/16 12:33 10/10/16 12:33 10/10/16 12:33 Intake and Output: 10/10/16 10/10/16 06:59 18:59 Intake Total 1000 960 Balance 1000 960 - Medications Medications: Current Medications Acetaminophen (Tylenol 650 Mg Supp) 650 mg MS Q4 PRN PRN Reason: Fever >100.4 F Enoxaparin Sodium (Lovenox) 40 mg SC DAILY SHERRELL PRN Reason: Protocol Last Admin: 10/10/16 10:28 Dose: 40 mg Ceftriaxone Sodium 1 gm/ (Sodium Chloride) 100 mls @ 100 mls/hr IVPB DAILY [facility] Last Admin: 10/10/16 10:27 Dose: 100 mls/hr Dextrose (Dextrose 5% In Water 1000 Ml) 1,000 mls @ 80 mls/hr IV .[id number] [facility] Stop: 10/10/16 19:05 Last Admin: 10/10/16 10:29 Dose: 80 mls/hr Insulin Human Lispro (Humalog) 0 units SC ACHS SHERRELL PRN Reason: Protocol Last Admin: 10/10/16 12:17 Dose: 1 unit - Labs Labs: 10/10/16 12:40 10/09/16 09:47 PT 12.8 SECONDS (9.6-11.2) H 10/07/16 12:33 INR 1.23 (0.92-1.08) H 10/07/16 12:33 APTT 24.3 SECONDS (23.3-32.5) 10/07/16 12:33 - Constitutional Appears: No Acute Distress, Chronically Ill - Head Exam Head Exam: NORMAL INSPECTION - Eye Exam Eye Exam: PERRL - ENT Exam ENT Exam: Mucous Membranes Dry - Neck Exam Neck Exam: Normal Inspection - Respiratory Exam Respiratory Exam: NORMAL BREATHING PATTERN - Cardiovascular Exam Cardiovascular Exam: REGULAR RHYTHM, Murmur (systolic 1?6 [facility] [place]) - GI/Abdominal Exam GI & Abdominal Exam: Soft, Normal Bowel Sounds - Exam Additional comments: Hughes Cath - Extremities Exam Extremities Exam: Normal Inspection - Back Exam Additional comments: Open wound stage 4 - Neurological Exam Neurological Exam: Awake Additional comments: Oriented x1, follows some commands, generalized weakness. - Skin Skin Exam: Warm Assessment and Plan (1) Severe sepsis Status: Acute (2) UTI (urinary tract infection) Status: Acute (3) KERRIE (acute kidney injury) Status: Acute (4) Dementia Status: Chronic (5) Type 2 diabetes mellitus Status: Chronic (6) Hyperglycemia Status: Acute (7) Hypernatremia Status: Acute - Assessment and Plan (Free Text) Plan: Continue Cipro po, Pt improved and stable to be discharged to [facility].
[2016-10-10 16:35] VITALS: BP 126/70; PULSE 65; TEMP 98.3
== END 2016-10-10 16:15 | DRG 698 ==
LOC: H.ER 11:12 → H.ERHOLD 14:54 → H.TEL 17:31
PROVIDERS: ADMIT Internal Medicine Pulmonary Disease; ATTEND Internal Medicine Pulmonary Disease
DX: T83.511A Infection and inflammatory reaction due to indwelling urethral catheter, initial encounter (principal); A41.9 Sepsis, unspecified organism; R65.20 Severe sepsis without septic shock; N17.9 Acute kidney failure, unspecified; L89.151 Pressure ulcer of sacral region, stage 1; E87.0 Hyperosmolality and hypernatremia; E87.1 Hypo-osmolality and hyponatremia; E11.65 Type 2 diabetes mellitus with hyperglycemia; G30.9 Alzheimer's disease, unspecified; N39.0 Urinary tract infection, site not specified; E11.22 Type 2 diabetes mellitus with diabetic chronic kidney disease; F02.80 Dementia in other diseases classified elsewhere, unspecified severity, without behavioral disturbance, psychotic disturbance, mood disturbance, and anxiety; E86.0 Dehydration; E78.00 Pure hypercholesterolemia, unspecified; Z85.3 Personal history of malignant neoplasm of breast; Z88.0 Allergy status to penicillin; F32.9 Major depressive disorder, single episode, unspecified; F41.9 Anxiety disorder, unspecified; I12.9 Hypertensive chronic kidney disease with stage 1 through stage 4 chronic kidney disease, or unspecified chronic kidney disease; N18.9 Chronic kidney disease, unspecified; E78.5 Hyperlipidemia, unspecified; J44.9 Chronic obstructive pulmonary disease, unspecified; B96.4 Proteus (mirabilis) (morganii) as the cause of diseases classified elsewhere

== ENCOUNTER 2017-01-09 09:49 | Emergency (ER) | payer MEDICARE, MEDICAID ==
[2017-01-09 09:50] VITALS: BMI 23.8
[2017-01-09] MEDS ORDERED: Sodium Chloride 0.9% 500 ML IV STA (10:07)
--- NOTE | 2017-01-09 10:12 | ED PDOC ---
HPI: General Adult Time Seen by Provider: 01/09/17 09:57 Chief Complaint (Nursing): Abdominal Pain Chief Complaint (Provider): Peg tube removal History Per: Other (staff and Dr. Bean) History/Exam Limitations: clinical condition (dementia) Onset/Duration Of Symptoms: Days (today) Current Symptoms Are (Timing): Still Present Additional Complaint(s): Pt. pulled out her peg tube today. Was sent from nursing for eval for it. Pt. dementia and unable to give any history. No fever noted at [facility]. Past Medical History Vital Signs: Last Vital Signs Temp 97 F L 01/09/17 09:53 Pulse 73 01/09/17 09:53 Resp BP 116/68 01/09/17 09:53 Pulse Ox 96 01/09/17 10:19 - Medical History PMH: Alzheimer's Disease, Anxiety, Dementia, Depression, Diabetes, HTN, Hypercholesterolemia, Chronic Kidney Disease Denies: HIV - Surgical History Surgical History: No Surg Hx - Family History Family History: States: Unknown Family Hx - Living Arrangements Living Arrangements: Long Term/Assist Lvng - Social History Alcohol: None Drugs: Denies - Home Medications Home Medications: Ambulatory Orders Medication Instructions Recorded Acetaminophen [Tylenol 325mg tab] 650 mg PO Q4H PRN 10/07/16 Acetaminophen [Tylenol 325mg tab] 650 mg PO Q4H PRN 10/07/16 Ascorbic Acid [Vitamin C 500 mg 500 mg PO DAILY 10/07/16 Tab] Aspirin [Aspirin Chewable] 81 mg PO DAILY 10/07/16 Atorvastatin [Lipitor] 10 mg PO HS 10/07/16 Bisacodyl [Fast Relief Laxative] 10 mg MD DAILY PRN 10/07/16 Docusate [Colace] 200 mg PO DAILY 10/07/16 Donepezil [Aricept] 10 mg PO HS 10/07/16 Ergocalciferol (Vitamin D2) 50,000 unit PO WE 10/07/16 [Vitamin D2] Losartan [Cozaar] 100 mg PO DAILY 10/07/16 Magnesium Hydroxide [Milk Of 30 ml PO HS PRN 10/07/16 Magnesia] Memantine [Namenda] 10 mg PO DAILY 10/07/16 Multivit,Calc,Mins/Iron/Folic 1 tab PO DAILY 10/07/16 [Thera-Tabs M [place]] traMADol [Ultram] 50 mg PO Q12H 10/07/16 Finest Fish Liquid Oil 6.25 ml PO BID 01/09/17 Omeprazole Liquid 10 ml PEG BID 01/09/17 Sucralfate [Carafate Oral Susp] 1 gm GT QID 01/09/17 - Allergies Allergies/Adverse Reactions: Allergies Allergy/AdvReac Type Severity Reaction Status Date / Time Penicillins Allergy UNKNOWN Verified 01/09/17 09:59 Review of Systems Review Of Systems: ROS cannot be obtained secondary to pt's inabilty to answer questions. Physical Exam - Reviewed Nursing Documentation Reviewed: Yes Vital Signs Reviewed: Yes - Physical Exam Appears: Positive for: Well, Non-toxic, No Acute Distress Head Exam: Positive for: ATRAUMATIC, NORMAL INSPECTION, NORMOCEPHALIC Skin: Positive for: Normal Color, Warm, DRY Eye Exam: Positive for: PERRL ENT: Positive for: Normal ENT Inspection Neck: Positive for: Normal, Painless ROM, Supple Cardiovascular/Chest: Positive for: Regular Rate, Rhythm Respiratory: Positive for: CNT, Normal Breath Sounds Gastrointestinal/Abdominal: Positive for: Soft, Tenderness (mild tender around previous peg tube insertion site; site is clear; non dc.) Back: Positive for: Normal Inspection. Negative for: L CVA Tenderness, R CVA Tenderness Extremity: Negative for: Tenderness Neurologic/Psych: Positive for: Other (awake but talking about random things; moving extremities on her own will; not compliant with exam.) - ECG O2 Sat by Pulse Oximetry: 96 Pulse Ox Interpretation: Normal - Progress ED Course And Treament: 1017: Stable. Spoke with Dr. Bean. Well aware of pt. Wants admit to hospital and Dr. Vick consult. 1108: Spoke with Dr. Vick. Will attempt mehta catheter placement for peg tube. 1404: Stable. AAOx3. Pain free. Dr. Vick at bedside and confirmed mehta placement. He states can be used. Pt. to return to [facility]. PROCEDURE Mehta catheter 18F advanced to peg tube wound. Tolerated well. Omnipaque x- ray confirmed placement. Disposition - Clinical Impression Clinical Impression: PEG tube malfunction - Patient ED Disposition Is Patient to be Admitted: No - Disposition Disposition: Routine/Home Disposition Time: 14:06 Condition: FAIR - POA Present On Arrival: None
[2017-01-09] MEDS ORDERED: Diatriz Meglumine/Diatriz Sod 30 ML BOTTLE PO ONE (11:03)
[2017-01-09] MEDS ORDERED: Iohexol 240 (50 ml) PO ONE (11:06)
[2017-01-09] MEDS ORDERED: Iohexol 240 (50 ml) ONE (11:18)
[2017-01-09 11:30] LABS: BASO % 0.5 % (0.0-2.0); EOS # 0.3 K/uL (0.0-0.7); EOS % 3.3 % (0.0-4.0); HEMOGLOBIN 12.9 g/dL (12.0-16.0); LYMPH # 1.6 K/uL (1.0-4.3); LYMPH % 17.9 % (20.0-40.0); MEAN CELL VOLUME 90.7 fl (81.0-99.0); MEAN CORPUSCULAR HEMOGLOBIN 30.1 pg (27.0-31.0); MEAN CORPUSCULAR HGB CONC 33.2 g/dL (33.0-37.0); MEAN PLATELET VOLUME 9.1 fl (7.2-11.7); MONO # 0.6 K/uL (0.0-0.8); MONO % 6.2 % (0.0-10.0); NEUT # 6.6 K/uL (1.8-7.0); NEUT % 72.1 % (50.0-75.0); NRBC % 0.2 % (0.0-0.0); RBC 4.28 Mil/uL (3.80-5.20); RED CELL DISTRIBUTION WIDTH 15.5 % (11.5-14.5); WHITE BLOOD COUNT 9.2 K/uL (4.8-10.8)
[2017-01-09 11:36] LABS: ALB/GLOB RATIO 1.4 (1.0-2.1); ALBUMIN 3.8 g/dL (3.5-5.0); ALT/SGPT 32 U/L (9-52); AST/SGOT 24 U/L (14-36); BLOOD UREA NITROGEN 24 mg/dl (7-17); CALCIUM 9.2 mg/dL (8.4-10.2); GFR AFRICAN-AMERICAN > 60; GFR NON-AFRICAN AMERICAN > 60
[2017-01-09 11:49] LABS: PROTHROMBIN TIME 11.1 Seconds (9.8-13.1)
[2017-01-09 11:50] LABS: PARTIAL THROMBOPLASTIN TIME 25.2 Seconds (25.6-37.1)
--- NOTE | 2017-01-09 13:03 | RAD ---
HISTORY: peg tube placement COMPARISON: No prior. FINDINGS: BOWEL: Two films are submitted. The regional film demonstrates a gastrostomy tube. The patient is obliquely positioned. There is no hepatic or splenic enlargement. There is no evidence of bowel obstruction. A 2nd film is submitted following the administration of water-soluble contrast material through the PEG tube. Contrast is seen within the gastric lumen and duodenum. There is no free intraperitoneal contrast material identified. The PEG tube appears appropriately positioned on the basis of this finding. BONES: Normal. OTHER FINDINGS: None. IMPRESSION: Peg tube positioned within the gastric lumen. Contrast seen in the stomach and duodenum.
[2017-01-09 16:11] VITALS: BP 128/74; PULSE 71; RESP 18; TEMP 98.4; O2SAT 99
== END 2017-01-09 16:11 | disposition home or self-care (01) ==
LOC: H.ER 09:49 → H.ERHOLD 10:18 → UNDOADMOB 10:18 → H.ER 16:11
DX: K94.23 Gastrostomy malfunction (principal)
CPT/HCPCS: 74010; 80053; 85025; 85610; 85730; 99282; J7040; Q9966

== ENCOUNTER 2017-01-29 10:26 | Observation (INO) | payer MEDICARE, MEDICAID ==
[2017-01-29 10:30] VITALS: BMI 23.8
[2017-01-29 10:32] VITALS: RESP 20
--- NOTE | 2017-01-29 12:18 | ED PDOC ---
HPI: General Adult Time Seen by Provider: 01/29/17 10:46 Chief Complaint (Nursing): Altered Mental Status History Per: Other (patient sent from [place] for feeding tube malfunction. Case d/w Dr. Bean. Request GI consult with Dr. Cerda.) Past Medical History Reviewed: Historical Data, Nursing Documentation, Vital Signs Vital Signs: Last Vital Signs Temp 98.3 F 01/29/17 15:56 Pulse 77 01/29/17 15:56 Resp 20 01/29/17 15:56 BP 134/89 01/29/17 15:56 Pulse Ox 97 01/29/17 16:28 - Medical History PMH: Alzheimer's Disease, Anxiety, Dementia, Depression, Diabetes, HTN, Hypercholesterolemia, Chronic Kidney Disease Denies: HIV - Family History Family History: States: Unknown Family Hx - Home Medications Home Medications: Ambulatory Orders Medication Instructions Recorded Acetaminophen [Tylenol 325mg tab] 650 mg PO Q4H PRN 10/07/16 Acetaminophen [Tylenol 325mg tab] 650 mg PO Q4H PRN 10/07/16 Ascorbic Acid [Vitamin C 500 mg 500 mg PO DAILY 10/07/16 Tab] Aspirin [Aspirin Chewable] 81 mg PO DAILY 10/07/16 Atorvastatin [Lipitor] 10 mg PO HS 10/07/16 Bisacodyl [Fast Relief Laxative] 10 mg [place] DAILY PRN 10/07/16 Docusate [Colace] 200 mg PO DAILY 10/07/16 Donepezil [Aricept] 10 mg PO HS 10/07/16 Ergocalciferol (Vitamin D2) 50,000 unit PO WE 10/07/16 [Vitamin D2] Losartan [Cozaar] 100 mg PO DAILY 10/07/16 Magnesium Hydroxide [Milk Of 30 ml PO HS PRN 10/07/16 Magnesia] Memantine [Namenda] 10 mg PO HS 10/07/16 Multivit,Calc,Mins/Iron/Folic 1 tab PO DAILY 10/07/16 [Thera-Tabs M Caplet] traMADol [Ultram] 50 mg PO Q12H PRN 10/07/16 Finest Fish Liquid Oil 6.25 ml PO BID 01/09/17 Omeprazole Liquid 10 ml GT BID 01/09/17 Sucralfate [Carafate Oral Susp] 1 gm GT QID 01/09/17 LORazepam [Ativan] 1 mg GT Q4H PRN 01/29/17 - Allergies Allergies/Adverse Reactions: Allergies Allergy/AdvReac Type Severity Reaction Status Date / Time Penicillins Allergy UNKNOWN Verified 01/09/17 09:59 Review of Systems ROS Statement: Except As Marked, All Systems Reviewed And Found Negative Review Of Systems: ROS cannot be obtained secondary to pt's inabilty to answer questions. Physical Exam - Reviewed Nursing Documentation Reviewed: Yes Vital Signs Reviewed: Yes - Physical Exam Appears: Positive for: Well, Non-toxic, No Acute Distress Head Exam: Positive for: ATRAUMATIC, NORMAL INSPECTION, NORMOCEPHALIC Skin: Positive for: Normal Color, Warm, DRY Eye Exam: Positive for: Normal appearance ENT: Positive for: Normal ENT Inspection Neck: Positive for: Normal Cardiovascular/Chest: Positive for: Regular Rate, Rhythm Respiratory: Positive for: CNT, Normal Breath Sounds Gastrointestinal/Abdominal: Positive for: Normal Exam, Bowel Sounds, Soft, Other (Hughes Cath in Gastrostomy site) Back: Positive for: Normal Inspection Extremity: Positive for: Normal ROM Neurologic/Psych: Positive for: Alert, Oriented - ECG O2 Sat by Pulse Oximetry: 97 Medical Decision Making Medical Decision Making: case dw Dr. Cerda. G-tube not flushing through and unable to deflate balloon for removal and reinsertion. Dr. Cerda will come later to eval the situation Disposition - Clinical Impression Clinical Impression: Feeding tube blocked - Patient ED Disposition Is Patient to be Admitted: Transfer of Care Doctor Will See Patient In The: Office - Disposition Disposition: Transfer of Care Disposition Time: 16:45 Condition: FAIR Patient Signed Over To: Liudmila Jimenez - Pt Status Changed To: Hospital Disposition Of: Observation - POA Present On Arrival: None
--- NOTE | 2017-01-29 15:10 | CP.PCM.CON ---
Past Patient History - Infectious Disease Hx of Infectious Diseases: None - Tetanus Immunizations Tetanus Immunization: Unknown - Past Medical History & Family History Past Medical History?: Yes - Past Social History Smoking Status: Never Smoked - CARDIAC Hx Hypercholesterolemia: Yes Hx Hypertension: Yes - PULMONARY Hx Respiratory Disorders: No - NEUROLOGICAL Hx Alzheimer's Disease: Yes Hx Dementia: Yes - HEENT Hx HEENT Problems: No - RENAL Hx Chronic Kidney Disease: Yes - ENDOCRINE/METABOLIC Hx Diabetes Mellitus Type 2: Yes - HEMATOLOGICAL/ONCOLOGICAL Hx Human Immunodeficiency Virus (HIV): No - INTEGUMENTARY Other/Comment: Sacral ulcer - MUSCULOSKELETAL/RHEUMATOLOGICAL Hx Musculoskeletal Disorders: Yes Hx Unsteady Gait: Yes - GASTROINTESTINAL Hx Gastrointestinal Disorders: No Other/Comment: peg tube - GENITOURINARY/GYNECOLOGICAL Hx Genitourinary Disorders: Yes Hx Urinary Tract Infection: Yes Other/Comment: Urinary retention and mehta catheter , renal cyst - PSYCHIATRIC Hx Anxiety: Yes Hx Depression: Yes - SURGICAL HISTORY Hx Surgeries: Yes Other/Comment: Mastectomy-Breast cancer. - ANESTHESIA Hx Anesthesia: Yes (reviewed from [place] papers.) Hx Anesthesia Reactions: No Meds Allergies/Adverse Reactions: Allergies Allergy/AdvReac Type Severity Reaction Status Date / Time Penicillins Allergy UNKNOWN Verified 01/09/17 09:59 Results - Vital Signs Recent Vital Signs: Last Vital Signs Temp 98.8 F 01/29/17 10:31 Pulse 74 01/29/17 10:31 Resp 20 01/29/17 10:31 BP 135/79 01/29/17 10:31 Pulse Ox 97 01/29/17 14:47
[2017-01-29 16:28] VITALS: O2SAT 97
--- NOTE | 2017-01-29 17:09 | ED PDOC ---
- ECG O2 Sat by Pulse Oximetry: 97 (RA) Pulse Ox Interpretation: Normal Medical Decision Making Medical Decision Making: Received endorsement from Dr. Mcleod, G-tube malfunction sent front halfway pending evaluation from Dr. León GI. 6p Eval by Dr Mclean. Flushed G tube well. 7p Abd xray post omnipaque demonstrates contrast with no extravasation. Stable for DC. Scribe Attestation Documented by Lucretia Walden acting as a scribe for Liudmila Jimenez MD. Provider Attestation All medical record entries made by the Scribe were at my direction and personally dictated by me. I have reviewed the chart and agree that the record accurately reflects my personal performance of the history, physical exam, medical decision making, and the department course for this patient. I have also personally directed, reviewed, and agree with the discharge instructions and disposition. Disposition - Clinical Impression Clinical Impression: Feeding tube dysfunction - POA Present On Arrival: None - Disposition Disposition: Other Institution Disposition Time: 14:45 Condition: IMPROVED
[2017-01-29 17:39] VITALS: BP 125/81; PULSE 82; TEMP 97.8
[2017-01-29] MEDS ORDERED: Iohexol 240 (50 ml) PO STA ×2 (17:50→19:30)
[2017-01-29] MEDS ORDERED: Iohexol 240 (50 ml) ONE ×2 (18:05→19:11)
--- NOTE | 2017-01-30 10:27 | RAD ---
HISTORY: Post contrast in G tube COMPARISON: No prior. FINDINGS: BOWEL: Normal. No obstruction. No free air. The post contrast injection demonstrate contrast in the stomach indicated appropriate position of the gastrostomy tube. No evidence of contrast extravasation in this study. BONES: Normal. OTHER FINDINGS: None. IMPRESSION: Findings consistent with appropriate position of the gastrostomy tube.
--- NOTE | 2017-01-31 10:48 | CON ---
DATE: 01/29/2017 REFERRING DOCTOR: Dr. Bean REASON FOR CONSULTATION: Dysphagia, dysfunctional feeding tube. HISTORY OF PRESENT ILLNESS: This is an 86-year-old female [facility] resident with a feeding tube for which it pulled out about a month ago and it has recently been inserted, now comes in for dysfunctional feeding tube. As per staff, the tube is not working. The patient is on multiple medical problems, which was obtained via chart. The patient is a poor historian and is demented. She has a history of dementia, depression, anxiety, hypertension, diabetes, hypercholesteremia and CKD. PAST MEDICAL HISTORY: As above. PAST SURGICAL HISTORY: As above. MEDICATIONS: Have been reviewed. REVIEW OF SYSTEMS: Unable to obtain. PHYSICAL EXAMINATION: VITAL SIGNS: In hospital was grossly unremarkable for information. GENERAL: A pleasant elderly pink female, lying in bed combative, demented, in no apparent distress. HEENT: Head: Normocephalic, atraumatic. Eyes, pupils equal, reactive to light bilaterally. No conjunctival pallor or icterus. NECK: Supple. Normal range of motion. No lymphadenopathy appreciated. LUNGS: Coarse breath sounds bilaterally. HEART: S1, S2, regular rate and rhythm. No murmurs appreciated. ABDOMEN: Soft, nontender. Bowel sounds present. No rebound. No guarding. RECTAL: Deferred. EXTREMITIES: Positive pulses bilaterally. SKIN: Warm, dry, and intact. NEUROLOGIC: Alert and oriented x1. LABORATORY DATA: Labs are pending. ASSESSMENT AND PLAN: This is an 86-year-old female with dementia, now on feeding tube dysfunction. From GI standpoint, I flushed the tube, and it flushed well, we just *------* a bit. Recommend checking Gastrografin study *------* use in some diagnosis.. Thank you for the consult. Cal Mclean MD/ PhD cc: Broderick Bean MD
== END 2017-01-29 21:25 ==
LOC: SUPCPDRO 10:26 → H.ER 10:26 → H.EROBSV 14:43
PROVIDERS: ADMIT Emergency Medicine; ATTEND Emergency Medicine
DX: K94.23 Gastrostomy malfunction (principal); E11.22 Type 2 diabetes mellitus with diabetic chronic kidney disease; G30.9 Alzheimer's disease, unspecified; F02.80 Dementia in other diseases classified elsewhere, unspecified severity, without behavioral disturbance, psychotic disturbance, mood disturbance, and anxiety; I12.9 Hypertensive chronic kidney disease with stage 1 through stage 4 chronic kidney disease, or unspecified chronic kidney disease; N18.9 Chronic kidney disease, unspecified; E78.00 Pure hypercholesterolemia, unspecified; Y83.3 Surgical operation with formation of external stoma as the cause of abnormal reaction of the patient, or of later complication, without mention of misadventure at the time of the procedure; Z88.0 Allergy status to penicillin; Y92.129 Unspecified place in nursing home as the place of occurrence of the external cause
CPT/HCPCS: 74010; 82948; 99284; G0378; Q9966

== ENCOUNTER 2017-02-02 09:35 | Inpatient (IN) | payer MEDICARE, MEDICAID ==
[2017-02-02 09:55] VITALS: BMI 21.1
--- NOTE | 2017-02-02 11:23 | ED PDOC ---
HPI: Abdomen Time Seen by Provider: 02/02/17 09:40 Chief Complaint (Nursing): GI Problem Chief Complaint (Provider): G-tube malfunction History Per: Other (correction records) History/Exam Limitations: no limitations Onset/Duration Of Symptoms: Days Outside of [place] travel?: No Current Symptoms Are (Timing): Still Present Additional Complaint(s): Betzaida Garcia is a 86yo female with past medical history of dementia, DM, hypertension, hypercholesterolemia, chronic kidney disease, is sent to the ED from [facility] for evaluation of her g-tube. Per correction report, they have been unable to flush her g-tube. Of note, patient was seen in this ED on 01/29 and prior chart was reviewed which indicates Dr. Mclean examined the patient and was able to flush her g-tube; patient was discharged to her correction. Patient has history of dementia, no report of fever, vomiting or other medical complaints. Past Medical History Reviewed: Historical Data, Nursing Documentation, Vital Signs Vital Signs: Last Vital Signs Temp 97.6 F 02/02/17 10:03 Pulse 66 02/02/17 10:03 Resp 20 02/02/17 10:03 BP 135/72 02/02/17 10:03 Pulse Ox 100 02/02/17 11:28 - Medical History PMH: Alzheimer's Disease, Anxiety, Dementia, Depression, Diabetes, HTN, Hypercholesterolemia, Chronic Kidney Disease Denies: HIV - Family History Family History: States: Unknown Family Hx - Living Arrangements Living Arrangements: [facility] - Home Medications Home Medications: Ambulatory Orders Medication Instructions Recorded Acetaminophen [Tylenol 325mg tab] 650 mg PO Q4H PRN 10/07/16 Acetaminophen [Tylenol 325mg tab] 650 mg PO Q4H PRN 10/07/16 Ascorbic Acid [Vitamin C 500 mg 500 mg PO DAILY 10/07/16 Tab] Aspirin [Aspirin Chewable] 81 mg PO DAILY 10/07/16 Atorvastatin [Lipitor] 10 mg PO HS 10/07/16 Bisacodyl [Fast Relief Laxative] 10 mg [place] DAILY PRN 10/07/16 Docusate [Colace] 200 mg PO DAILY 10/07/16 Donepezil [Aricept] 10 mg PO HS 10/07/16 Ergocalciferol (Vitamin D2) 50,000 unit PO WE 10/07/16 [Vitamin D2] Losartan [Cozaar] 100 mg PO DAILY 10/07/16 Magnesium Hydroxide [Milk Of 30 ml PO HS PRN 10/07/16 Magnesia] Memantine [Namenda] 10 mg PO HS 10/07/16 Multivit,Calc,Mins/Iron/Folic 1 tab PO DAILY 10/07/16 [Thera-Tabs M Caplet] traMADol [Ultram] 50 mg PO Q12H PRN 10/07/16 Finest Fish Liquid Oil 6.25 ml PO BID 01/09/17 Omeprazole Liquid 10 ml GT BID 01/09/17 Sucralfate [Carafate Oral Susp] 1 gm GT QID 01/09/17 LORazepam [Ativan] 1 mg GT Q4H PRN 01/29/17 - Allergies Allergies/Adverse Reactions: Allergies Allergy/AdvReac Type Severity Reaction Status Date / Time Penicillins Allergy UNKNOWN Verified 01/09/17 09:59 Review of Systems ROS Statement: Except As Marked, All Systems Reviewed And Found Negative Constitutional: Negative for: Fever Gastrointestinal: Positive for: Other (unable to flush g-tube) Physical Exam - Reviewed Nursing Documentation Reviewed: Yes Vital Signs Reviewed: Yes - Physical Exam Appears: Positive for: Well (hydrated), Non-toxic, No Acute Distress Head Exam: Positive for: ATRAUMATIC, NORMAL INSPECTION, NORMOCEPHALIC Skin: Positive for: Normal Color, Warm Eye Exam: Positive for: Normal appearance, EOMI, PERRL Neck: Positive for: Normal, Supple Cardiovascular/Chest: Positive for: Regular Rate, Rhythm Respiratory: Positive for: Normal Breath Sounds. Negative for: Respiratory Distress Gastrointestinal/Abdominal: Positive for: Soft, Other (18 F mehta catheter noted , appears intact. clouding of g-tube noted. stoma appears without erythema or discharge). Negative for: Tenderness Back: Positive for: Normal Inspection Extremity: Positive for: Normal ROM. Negative for: Deformity, Swelling Neurologic/Psych: Positive for: Alert. Negative for: Oriented (x 0) - Laboratory Results Result Diagrams: 02/02/17 11:45 02/02/17 11:45 - ECG O2 Sat by Pulse Oximetry: 100 (RA) Pulse Ox Interpretation: Normal Medical Decision Making Medical Decision Making: Time: 0940 Impression: 86y/o female unable to flush her g-tube Plan: -- Attempted to flush and milk g-tube without success. Dr Templeton covering Dr Mclean rec attemp flush or attempt replace. Replacement g-tube obtained in preparation of exchange, however when we deflated the bulb, we were unable to retract/remove the 18f tube from stoma. There is concern that the mehta catheter has knotted inside; patient will require GI eval/ may require endoscopic evaluation. Time: [address] Broderick Bean and patient to be admitted for observation to Med/Surg. CBC and CMP ordered. Labs reveal mild dehydration, IVF initiated. Scribe Attestation: Documented by Estela Drake acting as a scribe for Cal Gillis DO. Provider Attestation: All medical record entries made by the Scribe were at my direction and personally dictated by me. I have reviewed the chart and agree that the record accurately reflects my personal performance of the history, physical exam, medical decision making, and the department course for this patient. I have also personally directed, reviewed, and agree with the discharge instructions and disposition. Disposition - Clinical Impression Clinical Impression: Gastrostomy tube obstruction, Dehydration - Patient ED Disposition Is Patient to be Admitted: Yes Counseled Patient/Family Regarding: Studies Performed, Diagnosis - Disposition Disposition Time: 11:01 Condition: STABLE - Pt Status Changed To: Hospital Disposition Of: Observation - POA Present On Arrival: None
[2017-02-02 11:59] LABS: BASO # 0.1 K/uL (0.0-0.2); BASO % 0.5 % (0.0-2.0); EOS # 0.6 K/uL (0.0-0.7); EOS % 5.3 % (0.0-4.0); HEMATOCRIT 44.3 % (34.0-47.0); LYMPH # 2.1 K/uL (1.0-4.3); LYMPH % 19.5 % (20.0-40.0); MEAN CELL VOLUME 88.7 fl (81.0-99.0); MEAN CORPUSCULAR HEMOGLOBIN 29.3 pg (27.0-31.0); MEAN CORPUSCULAR HGB CONC 33.1 g/dL (33.0-37.0); MEAN PLATELET VOLUME 9.1 fl (7.2-11.7); MONO # 0.8 K/uL (0.0-0.8); NEUT # 7.1 K/uL (1.8-7.0); NEUT % 66.7 % (50.0-75.0); NRBC % 0.1 % (0.0-0.0); RED CELL DISTRIBUTION WIDTH 14.8 % (11.5-14.5); WHITE BLOOD COUNT 10.6 K/uL (4.8-10.8)
[2017-02-02 12:06] LABS: ALB/GLOB RATIO 1.3 (1.0-2.1); ALKALINE PHOSPHATASE 89 U/L (38-126); ALT/SGPT 34 U/L (9-52); AST/SGOT 33 U/L (14-36); BILIRUBIN,TOTAL 0.8 mg/dl (0.2-1.3); BLOOD UREA NITROGEN 23 mg/dl (7-17); CALCIUM 9.6 mg/dL (8.4-10.2); CARBON DIOXIDE 28 mmol/L (22-30); CHLORIDE 103 mmol/L (98-107); GFR AFRICAN-AMERICAN > 60; GLUCOSE,RANDOM 106 mg/dL (65-105); SODIUM 140 mmol/l (132-148); TOTAL PROTEIN 7.4 G/DL (6.3-8.2)
[2017-02-02 12:10] LABS: POTASSIUM 4.6 MMOL/L (3.6-5.0)
[2017-02-02] MEDS ORDERED: Sodium Chloride 0.9% 1,000 ML IV STA (12:32)
[2017-02-02] MEDS ORDERED: Dextrose 50% SYRINGE Inj (50 ml) IVP ONE (22:32)
[2017-02-02] MEDS: Dextrose 5%/0.45% NS 1,000 ML IV SCH (23:15)
[2017-02-03 07:41] LABS: ALB/GLOB RATIO 1.3 (1.0-2.1); ALKALINE PHOSPHATASE 81 U/L (38-126); ALT/SGPT 37 U/L (9-52); AST/SGOT 29 U/L (14-36); BILIRUBIN,TOTAL 0.7 mg/dl (0.2-1.3); BLOOD UREA NITROGEN 17 mg/dl (7-17); CALCIUM 9.1 mg/dL (8.4-10.2); CARBON DIOXIDE 27 mmol/L (22-30); CHLORIDE 106 mmol/L (98-107); GFR AFRICAN-AMERICAN > 60; GLUCOSE,RANDOM 108 mg/dL (65-105); POTASSIUM 3.8 MMOL/L (3.6-5.0); SODIUM 141 mmol/l (132-148); TOTAL PROTEIN 6.8 G/DL (6.3-8.2)
[2017-02-03 07:46] LABS: BASO # 0.1 K/uL (0.0-0.2); BASO % 0.7 % (0.0-2.0); EOS # 0.4 K/uL (0.0-0.7); EOS % 5.1 % (0.0-4.0); HEMATOCRIT 42.8 % (34.0-47.0); LYMPH # 1.6 K/uL (1.0-4.3); LYMPH % 20.1 % (20.0-40.0); MEAN CELL VOLUME 89.6 fl (81.0-99.0); MEAN CORPUSCULAR HEMOGLOBIN 29.3 pg (27.0-31.0); MEAN CORPUSCULAR HGB CONC 32.7 g/dL (33.0-37.0); MEAN PLATELET VOLUME 8.5 fl (7.2-11.7); MONO # 0.7 K/uL (0.0-0.8); MONO % 8.3 % (0.0-10.0); NEUT # 5.4 K/uL (1.8-7.0); NEUT % 65.8 % (50.0-75.0); RED CELL DISTRIBUTION WIDTH 14.5 % (11.5-14.5); WHITE BLOOD COUNT 8.1 K/uL (4.8-10.8)
[2017-02-03] MEDS ORDERED: Chlorhexidine Gluconate 1 APPL/PKT TP ONE (09:47)
--- NOTE | 2017-02-03 16:51 | CP.PCM.HP ---
History of Present Illness - History of Present Illness History of Present Illness: CC: Peg tube malfunction. 86 y/o F, resident at [facility], brought to ER [facility], [place] by EMS due to G-Tube malfunction on DOA with no improvement, associated to dehydration. Worsening symptoms: Generalized weakness, Dementia, Alzheimer's. Aggravated factor: Impaired gait. No: Pain, fever, chills, n/v/d, abdominal pain, SOB, CP, palpitations, syncope. PMHx: Dementia, Alzheimer's Disease, HTN, DMII, Hypercholesterolemia, CKD, Anxiety, depression, Hx of Breast Ca with Mastectomy. Present on Admission - Present on Admission Any Indicators Present on Admission: Yes Decubitus Ulcer Stage: I (L-S) Review of Systems - Review of Systems Systems not reviewed;Unavailable: Acuity of Condition, Dementia Past Patient History - Infectious Disease Hx of Infectious Diseases: None - Tetanus Immunizations Tetanus Immunization: Unknown - Past Medical History & Family History Past Medical History?: Yes Pertinent Family History: Unknown - Past Social History Smoking Status: Never Smoked Alcohol: None Drugs: Denies Home Situation {Lives}: Residential - CARDIAC Hx Cardiac Disorders: Yes Hx Hypercholesterolemia: Yes Hx Hypertension: Yes - PULMONARY Hx Respiratory Disorders: No - NEUROLOGICAL Hx Neurological Disorder: Yes Hx Alzheimer's Disease: Yes Hx Dementia: Yes - HEENT Hx HEENT Problems: No - RENAL Hx Chronic Kidney Disease: Yes - ENDOCRINE/METABOLIC Hx Endocrine Disorders: Yes Hx Diabetes Mellitus Type 2: Yes - HEMATOLOGICAL/ONCOLOGICAL Hx Blood Disorders: Yes Hx Cancer: Yes (Breast) Hx Hepatitis A: Yes (resolved) Hx Human Immunodeficiency Virus (HIV): No - INTEGUMENTARY Hx Dermatological Problems: Yes Other/Comment: Sacral ulcer - MUSCULOSKELETAL/RHEUMATOLOGICAL Hx Musculoskeletal Disorders: Yes Hx Falls: No Hx Unsteady Gait: Yes - GASTROINTESTINAL Hx Gastrointestinal Disorders: No Other/Comment: peg tube - GENITOURINARY/GYNECOLOGICAL Hx Genitourinary Disorders: Yes Hx Urinary Tract Infection: Yes Other/Comment: Urinary retention and mehta catheter , renal cyst - PSYCHIATRIC Hx Psychophysiologic Disorder: Yes Hx Anxiety: Yes Hx Depression: Yes Hx Substance Use: No - SURGICAL HISTORY Hx Surgeries: Yes Other/Comment: Mastectomy-Breast cancer. - ANESTHESIA Hx Anesthesia: Yes (reviewed from [place] papers.) Hx Anesthesia Reactions: No Meds Allergies/Adverse Reactions: Allergies Allergy/AdvReac Type Severity Reaction Status Date / Time Penicillins Allergy UNKNOWN Verified 01/09/17 09:59 Physical Exam - Constitutional Appears: No Acute Distress, Confused, Chronically Ill - Head Exam Head Exam: NORMAL INSPECTION - Eye Exam Eye Exam: PERRL - ENT Exam ENT Exam: Normal Exam - Neck Exam Neck exam: Positive for: Normal Inspection - Respiratory Exam Respiratory Exam: Decreased Breath Sounds (at bases) - Cardiovascular Exam Cardiovascular Exam: REGULAR RHYTHM, Systolic Murmur (1/6 LSB [place].) - GI/Abdominal Exam GI & Abdominal Exam: Normal Bowel Sounds, Soft - Extremities Exam Additional comments: Abrasion R-L knee. - Back Exam Additional comments: Sacral ulcer - Neurological Exam Additional comments: Awake, forgetful, disoriented, generalized weakness. - Psychiatric Exam Psychiatric exam: Agitated, Anxious - Skin Skin Exam: Warm Results - Vital Signs Recent Vital Signs: Last Vital Signs Temp 97.8 F 02/03/17 16:27 Pulse 67 02/03/17 16:27 Resp 20 02/03/17 16:27 BP 144/74 02/03/17 16:27 Pulse Ox 98 02/03/17 16:27 reviewed J.P. - Labs Result Diagrams: 02/04/17 06:35 02/04/17 06:35 Labs: Laboratory Results - last 24 hr 02/03/17 02/03/17 15:59 16:04 POC Glucose (mg/dL) 102 105 reviewed J.P. Assessment & Plan (1) Feeding tube dysfunction Status: Acute Priority: High (2) Gastrostomy tube obstruction Status: Acute Priority: High (3) Dehydration Status: Acute Priority: High - Assessment and Plan (Free Text) Plan: Pt seen by GI in AM for Peg-Tube flushing but was not successfully, as per ID, Pt has to be in NPO, for OR to have a new Peg-Tube. Continue current tx. GI consult appreciated. - Date & Time Date: 02/03/17 Time: 13:00
[2017-02-03] MEDS: Dextrose 5%/0.45% NS 1,000 ML IV SCH ×2 (17:16→21:33)
[2017-02-04] MEDS: Dextrose 5%/0.45% NS 1,000 ML IV SCH (03:32)
[2017-02-04 07:29] LABS: HEMATOCRIT 40.8 % (34.0-47.0); MEAN CELL VOLUME 88.1 fl (81.0-99.0); MEAN CORPUSCULAR HEMOGLOBIN 29.9 pg (27.0-31.0); MEAN CORPUSCULAR HGB CONC 33.9 g/dL (33.0-37.0); RED CELL DISTRIBUTION WIDTH 14.5 % (11.5-14.5); WHITE BLOOD COUNT 5.6 K/uL (4.8-10.8)
--- NOTE | 2017-02-04 07:52 | PQF GENQUE ---
This form is a permanent part of the medical record 02/04/17 Dr. Bean, H&P states that the patient has a history of CRF. Bun 23 and creatinine 0.4 with a GFR >60. If CRF is ruled in please clarify the stage. If it is ruled out please document : CRF ruled out. Clarification of your documentation is requested to better reflect the severity of illness and intensity of treatment of your patient. Indicators present [] Specify: [] [] Specify: [] [] Specify: [] [] Specify: [] Location in the medical record that reflects the above clinical findings: [] Treatment Provided: [] PHYSICIAN'S RESPONSE Based on your medical judgment of the clinical indicators outlined above please clarify the following: [] Practitioner response [] If unable to determine, please check the box, sign and date. Present On Admission (POA) Indicator: [] Present at the time of admission [] Not present at the time of admission [] Clinically Undetermined In responding to this query, please exercise your independent professional judgment. The fact that a question is asked does not imply that any particular answer is desired or expected. Thank you for your clarification on this documentation. If you have any questions please call:extension [phone] * Thank you, Tracey Hoyt RN [facility]
[2017-02-04 08:02] LABS: BLOOD UREA NITROGEN 8 mg/dl (7-17); CARBON DIOXIDE 27 mmol/L (22-30); CHLORIDE 106 mmol/L (98-107); CHOLESTEROL 132 mg/dL (0-199); GFR AFRICAN-AMERICAN > 60; GLUCOSE,RANDOM 138 mg/dL (65-105); POTASSIUM 3.3 MMOL/L (3.6-5.0); SODIUM 140 mmol/l (132-148)
[2017-02-04] MEDS: Potassium Chl 40 mEq in D5-1/2 1,000 ML IV SCH ×2 (11:39→23:01)
--- NOTE | 2017-02-04 14:04 | CP.PCM.PN ---
Subjective - Date & Time of Evaluation Date of Evaluation: 02/04/17 Time of Evaluation: 12:00 - Subjective Subjective: F/U G-Tube malfunction. Pt awake, smiling, no A/D, answering simple questions. Objective - Vital Signs/Intake and Output Vital Signs (last 24 hours): Temp Pulse Resp BP Pulse Ox 97.1 F L 84 20 162/83 H 95 02/04/17 07:57 02/04/17 07:57 02/04/17 07:57 02/04/17 07:57 02/04/17 07:57 - Medications Medications: Current Medications Vancomycin HCl 1 gm/ Sodium (Chloride) 250 mls @ 166.667 mls/hr IVPB ONCE ONE Stop: 02/05/17 11:44 Potassium Chloride/Dextrose/Sod Cl (Potassium Chl 40 Meq In D5-1/2ns) 1,000 mls @ 90 mls/hr IV .[id number] SHERRELL Stop: 02/05/17 10:41 Last Admin: 02/04/17 11:39 Dose: 90 mls/hr Lorazepam (Ativan) 0.5 mg IVP Q4 PRN PRN Reason: Agitation Last Admin: 02/03/17 16:01 Dose: 0.5 mg - Labs Labs: 02/04/17 06:35 02/04/17 06:35 APTT 27.6 Seconds (25.6-37.1) 02/03/17 06:30 - Constitutional Appears: No Acute Distress, Chronically Ill - Head Exam Head Exam: NORMAL INSPECTION - Eye Exam Eye Exam: PERRL - ENT Exam ENT Exam: Normal Exam - Neck Exam Neck Exam: Normal Inspection - Respiratory Exam Respiratory Exam: Decreased Breath Sounds (at bases) - Cardiovascular Exam Cardiovascular Exam: REGULAR RHYTHM, Murmur (systolic 1/6 LSB [place]) - GI/Abdominal Exam GI & Abdominal Exam: Soft, Normal Bowel Sounds Additional comments: Previous peg tube site cover with dressing, no suppuration. - Back Exam Additional comments: Sacral ulcer - Neurological Exam Neurological Exam: Alert Additional comments: Oriented x2, forgetful, generalized weakness. - Psychiatric Exam Psychiatric exam: Anxious - Skin Skin Exam: Warm Assessment and Plan (1) Feeding tube dysfunction Status: Acute (2) Gastrostomy tube obstruction Status: Acute (3) Dehydration Status: Acute - Assessment and Plan (Free Text) Plan: Continue current Tx, GI planning placement of a new G-tube tomorrow.
--- NOTE | 2017-02-04 20:44 | CON ---
DATE OF SERVICE: 02/03/2017 REASON FOR CONSULTATION: Dysphagia, dysfunctional feeding tube. HISTORY OF PRESENT ILLNESS: This is an 86-year-old female who is well known to my office service with multiple admission to the ER with dysfunctional feeding tube, recently a few days ago with questionable problem, now it is completely not working. Essentially, I examined the patient. She is a poor historian and cannot give history as she is demented. Essentially, the feeding tube has been partially pulled into the skin and dislodged out of place, and therefore needed to be removed. Currently, the patient is lying in bed comfortably, in no apparent distress. PAST MEDICAL HISTORY: Includes dementia, anxiety, depression, diabetes, hypertension, hypercholesteremia, CKD. PAST SURGICAL HISTORY: Noncontributory. FAMILY HISTORY: Noncontributory. REVIEW OF SYSTEMS: Unable to obtain as the patient is a bad historian. PHYSICAL EXAMINATION: VITAL SIGNS: In the hospital, grossly unremarkable. GENERAL: Pleasant, elderly pink female, lying in bed, comfortable, in no apparent distress. HEENT: Head, normocephalic and atraumatic. Eyes, pupils equal and reactive to light bilaterally. No conjunctival pallor or icterus. NECK: Supple. Normal range of motion. No lymphadenopathy appreciated. LUNGS: Coarse breath sounds bilaterally. HEART: S1, S2. Regular rate and rhythm. No murmurs appreciated. ABDOMEN: Soft, nontender. Bowel sounds present. No rebound. No guarding. RECTAL: Deferred. EXTREMITIES: Positive pulses bilaterally. SKIN: Warm, dry, and intact. NEUROLOGIC: Awake and oriented x1. LABORATORY DATA: Labs were reviewed. WBC 8.1, hemoglobin 14.0, platelet count is normal. ASSESSMENT AND PLAN: This is an 86-year-old female with dysfunctional feeding tube. We will plan for PEG tube insertion once consent is obtained. Thank you for the consult. Cal Mclean MD/ PhD cc: Broderick Bean MD
[2017-02-05 08:08] LABS: HEMATOCRIT 42.5 % (34.0-47.0); MEAN CELL VOLUME 87.6 fl (81.0-99.0); MEAN CORPUSCULAR HEMOGLOBIN 29.5 pg (27.0-31.0); MEAN CORPUSCULAR HGB CONC 33.7 g/dL (33.0-37.0); RED CELL DISTRIBUTION WIDTH 14.1 % (11.5-14.5); WHITE BLOOD COUNT 6.6 K/uL (4.8-10.8)
[2017-02-05 08:25] LABS: BLOOD UREA NITROGEN 5 mg/dl (7-17); CALCIUM 9.3 mg/dL (8.4-10.2); CARBON DIOXIDE 24 mmol/L (22-30); CHLORIDE 107 mmol/L (98-107); GFR AFRICAN-AMERICAN > 60; GLUCOSE,RANDOM 130 mg/dL (65-105); POTASSIUM 4.2 MMOL/L (3.6-5.0); SODIUM 140 mmol/l (132-148)
[2017-02-05] MEDS ORDERED: Lactated Ringer's 500 ML IV ONE (10:12)
[2017-02-05] MEDS ORDERED: Vancomycin 1 g Inj IVPB ONE (10:15)
[2017-02-05] MEDS ORDERED: Propofol 10 mg/ml Inj (20 ML) ONE (10:41)
[2017-02-05] MEDS ORDERED: Midazolam 2 MG/2 ML VIAL ONE (10:41)
[2017-02-05] MEDS ORDERED: Etomidate 20 mg/10ml Inj IV ONE (10:41)
[2017-02-05] MEDS ORDERED: Magnesium Hydroxide Susp 30 ml UD PO PRN (12:44)
[2017-02-05] MEDS: Potassium Chl 40 mEq in D5-1/2 1,000 ML IV SCH (12:53)
[2017-02-05 12:56] VITALS: RESP 20
[2017-02-05 13:27] LABS: URINE BILIRUBIN NEGATIVE (NEGATIVE); URINE COLOR YELLOW (YELLOW); URINE GLUCOSE (UA) NEG (Normal); URINE KETONE NEGATIVE (NEGATIVE); URINE LEUKOCYTE ESTERASE LARGE Leu/uL (Negative); URINE PROTEIN NEGATIVE (NEGATIVE); URINE UROBILINOGEN 0.2-1.0 mg/dL (0.2-1.0); WBC URINE 137 /hpf (0-5)
[2017-02-05 13:29] LABS: URINE BACTERIA RARE (<OCC); URINE BLOOD TRACE (NEGATIVE)
--- NOTE | 2017-02-05 14:39 | CP.PCM.PCO ---
Assessment/Plan - Assessment/Plan Assessment (Free Text): Pt stable, peg intact with abdominal binder in place. Per Dr. Mclean, feedings to be resumed 8 hrs after peg placement, pt can be transferred back to MD. RN aware to give report to NH. Pt's urine noted to be cloudy, positive UTI from UA. Pt started on Cipro, urine culture pending. Pt will be discharged to [facility] on Cipro, Dr. Bean will follow up on culture and will see pt in NH. - Problems Patient Problems: Problem List (Active/Current) Problem Status Onset Code Dehydration Acute E86.0 Gastrostomy tube obstruction Acute K94.29
[2017-02-05 16:30] VITALS: BP 152/76; PULSE 78; TEMP 98.1; O2SAT 97
--- NOTE | 2017-02-06 12:57 | PQF GENQUE ---
Dr. Bean communication report dated 02/05 documented "urine cs positive for gram negative rods. Pt started on Cipro. After study was diagnosis of UTI ruled in or out? This form is a permanent part of the medical record Clarification of your documentation is requested to better reflect the severity of illness and intensity of treatment of your patient. Indicators present [] Specify: [] [] Specify: [] [] Specify: [] [] Specify: [] Location in the medical record that reflects the above clinical findings: [] Treatment Provided: [] PHYSICIAN'S RESPONSE Based on your medical judgment of the clinical indicators outlined above please clarify the following: [] Practitioner response [] If unable to determine, please check the box, sign and date. Present On Admission (POA) Indicator: [] Present at the time of admission [] Not present at the time of admission [] Clinically Undetermined In responding to this query, please exercise your independent professional judgment. The fact that a question is asked does not imply that any particular answer is desired or expected. Thank you for your clarification on this documentation. If you have any questions please call:[ ] * Thank you, [ ]Tierney Bonilla printing press operator KENNEDI
== END 2017-02-05 22:26 | DRG 394 ==
LOC: H.ER 09:35 → H.ERHOLD 11:14 → H.MEDSURG1 14:11 → OBSVTOIN 02-03 14:22 → H.MEDSURG1 02-03 18:11
PROVIDERS: ADMIT Internal Medicine Pulmonary Disease; ATTEND Internal Medicine Pulmonary Disease
PROC: 0DB68ZX Excision of Stomach, Via Natural or Artificial Opening Endoscopic, Diagnostic (ICD-10-PCS; 2017-02-05)
PROC: 0D20XUZ Change Feeding Device in Upper Intestinal Tract, External Approach (ICD-10-PCS; 2017-02-05)
PROC: 0DB98ZX Excision of Duodenum, Via Natural or Artificial Opening Endoscopic, Diagnostic (ICD-10-PCS; principal; 2017-02-05 10:45)
DX: K94.23 Gastrostomy malfunction (principal); N39.0 Urinary tract infection, site not specified; L89.151 Pressure ulcer of sacral region, stage 1; G30.9 Alzheimer's disease, unspecified; K26.9 Duodenal ulcer, unspecified as acute or chronic, without hemorrhage or perforation; R13.10 Dysphagia, unspecified; E86.0 Dehydration; E11.9 Type 2 diabetes mellitus without complications; F02.80 Dementia in other diseases classified elsewhere, unspecified severity, without behavioral disturbance, psychotic disturbance, mood disturbance, and anxiety; E78.00 Pure hypercholesterolemia, unspecified; Z88.0 Allergy status to penicillin; Z85.3 Personal history of malignant neoplasm of breast; K29.70 Gastritis, unspecified, without bleeding; F32.9 Major depressive disorder, single episode, unspecified; I10 Essential (primary) hypertension; F41.9 Anxiety disorder, unspecified; Y83.3 Surgical operation with formation of external stoma as the cause of abnormal reaction of the patient, or of later complication, without mention of misadventure at the time of the procedure

== ENCOUNTER 2017-02-11 00:44 | Observation (INO) | payer MEDICARE, MEDICAID ==
[2017-02-11 00:44] VITALS: BMI 21.1
--- NOTE | 2017-02-11 01:18 | ED PDOC ---
HPI: Trauma/Fall - HPI Time Seen by Provider: 02/11/17 01:01 Chief Complaint (Nursing): Abnormal Skin Integrity History Per: EMS History/Exam Limitations: other (history of dementia) Onset/Duration Of Symptoms: Unknown Severity: None Pain Scale Rating Of: 0 Additional History Per: EMS Additional Complaint(s): 86 y/o female brought by EMS for evaluation after unwitnessed fall, LOC unknown. She denies any complaints. Past Medical History Vital Signs: Last Vital Signs Temp 97.5 F L 02/11/17 01:04 Pulse 75 02/11/17 01:04 Resp 18 02/11/17 01:04 BP 138/75 02/11/17 01:04 Pulse Ox 93 L 02/11/17 03:37 - Medical History PMH: Alzheimer's Disease, Anxiety, Dementia, Depression, Diabetes, HTN, Hypercholesterolemia, Chronic Kidney Disease Denies: HIV - Family History Family History: States: Unknown Family Hx - Home Medications Home Medications: Ambulatory Orders Medication Instructions Recorded Acetaminophen [Tylenol 325mg tab] 650 mg PO Q4H PRN 10/07/16 Acetaminophen [Tylenol 325mg tab] 650 mg PO Q4H PRN 10/07/16 Ascorbic Acid [Vitamin C 500 mg 500 mg PO DAILY 10/07/16 Tab] Aspirin [Aspirin Chewable] 81 mg PO DAILY 10/07/16 Atorvastatin [Lipitor] 10 mg PO HS 10/07/16 Bisacodyl [Fast Relief Laxative] 10 mg ME DAILY PRN 10/07/16 Docusate [Colace] 200 mg PO DAILY 10/07/16 Donepezil [Aricept] 10 mg PO HS 10/07/16 Ergocalciferol (Vitamin D2) 50,000 unit PO WE 10/07/16 [Vitamin D2] Losartan [Cozaar] 100 mg PO DAILY 10/07/16 Magnesium Hydroxide [Milk Of 30 ml PO HS PRN 10/07/16 Magnesia] Memantine [Namenda] 10 mg PO HS 10/07/16 Multivit,Calc,Mins/Iron/Folic 1 tab PO DAILY 10/07/16 [Thera-Tabs M Caplet] traMADol [Ultram] 50 mg PO Q12H PRN 10/07/16 Finest Fish Liquid Oil 6.25 ml PO BID 01/09/17 Omeprazole Liquid 10 ml GT BID 01/09/17 Sucralfate [Carafate Oral Susp] 1 gm GT QID 01/09/17 LORazepam [Ativan] 1 mg GT Q4H PRN 01/29/17 Ciprofloxacin [Cipro] 500 mg PO Q12 tab 02/05/17 - Allergies Allergies/Adverse Reactions: Allergies Allergy/AdvReac Type Severity Reaction Status Date / Time Penicillins Allergy UNKNOWN Verified 01/09/17 09:59 Review of Systems ROS Statement: Except As Marked, All Systems Reviewed And Found Negative Physical Exam - Reviewed Nursing Documentation Reviewed: Yes Vital Signs Reviewed: Yes - Physical Exam Appears: Positive for: Well, Non-toxic, No Acute Distress Head Exam: Positive for: NORMAL INSPECTION, NORMOCEPHALIC. Negative for: ATRAUMATIC (1.5 cm abrasion to the right forehead, with 1.5 cm laceration under the abrasion, swelling) Skin: Positive for: Warm. Negative for: Normal Color (ecchymosis right forehead , healing bruises on upper extremities. ) Eye Exam: Positive for: EOMI, Normal appearance, PERRL ENT: Positive for: Normal ENT Inspection Neck: Positive for: Normal, Painless ROM Cardiovascular/Chest: Positive for: Regular Rate, Rhythm Respiratory: Positive for: CNT, Normal Breath Sounds Gastrointestinal/Abdominal: Positive for: Normal Exam, Bowel Sounds, Soft Back: Positive for: Normal Inspection Extremity: Positive for: Normal ROM Neurologic/Psych: Positive for: Alert - ECG O2 Sat by Pulse Oximetry: 93 (RA) Medical Decision Making Medical Decision Making: Impression: Fall with Head Injury Plan: - CT Head and Maxillofacial Bones [facility] Final Radiology Report Call: [phone] assistance Online chat: [email or web address] Patient Name: MARY LAYTON (Age): 1930 Gender: F Date of Exam: 02/11/2017 Referring Physician: Roly Phan # of Images: [id number] Ordered As: CT HEAD W O CONTRAST Page 1 of 2 EXAM: CT Head Without Intravenous Contrast EXAM DATE/TIME: 02/11/2017 1:08 AM CLINICAL HISTORY: 86 years old, female; Injury or trauma; Fall TECHNIQUE: Axial computed tomography images of the head/brain without intravenous contrast. All CT scans at this facility use one or more dose reduction techniques, viz.: automated exposure control; ma/kV adjustment per patient size (including targeted exams where dose is matched to indication; i.e. head); or iterative reconstruction technique. Coronal and sagittal reformatted images were created and reviewed. COMPARISON: No relevant prior studies available. 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 Areas of hypodensity seen in the white matter bilaterally, nonspecific in appearance, but most likely representing chronic small vessel ischemic changes, in a patient of this age. Diffuse, marked, age-related cortical atrophy and ventriculomegaly. No significant acute abnormality identified. No acute hemorrhage seen within the brain. No acute extra-axial fluid collections visualized. No evidence of significant mass effect within the brain. VENTRICLES: See above. BONES/JOINTS: No acute fractures or other acute bony abnormality noted. SOFT TISSUES: Soft tissue swelling and a 3 x 1 cm biconcave soft tissue hematoma in the left frontal scalp. VASCULATURE: Atherosclerotic calcification. SINUSES: Moderate mucosal thickening in the left maxillary sinus. There is high density material in the left maxillary sinus. This finding can be seen with inspissated secretions from longstanding sinus inflammatory disease. It can also be seen with fungal sinusitis, however, and recommend clinical correlation. Remaining visualized paranasal sinuses appear clear. MASTOID AIR CELLS: Mastoid air cells appear clear. IMPRESSION: - No evidence of acute intracranial injury or fractures. - Small hematoma in the left frontal scalp. - Left maxillary sinus disease. Please see above for a full description. - See above for remaining findings. Thank you for allowing us to participate in the care of your patient. Dictated and Authenticated by: Leona Turpin MD 02/11/2017 3:01 AM Eastern Time ([place] & [place]) [facility] Final Radiology Report Call: [phone] assistance Online chat: [email or web address] Patient Name: MARY LAYTON (Age): 1930 86 Gender: F Date of Exam: 02/11/2017 Referring Physician: Roly Phan # of Images: [id number] Ordered As: CT MAXILLOFACIAL W O CONTRAST Page 1 of 2 EXAM: CT Maxillofacial Without Intravenous Contrast EXAM DATE/TIME: 02/11/2017 1:08 AM CLINICAL HISTORY: 86 years old, female; Injury or trauma; Fall; Initial encounter; Abrasion; Forehead TECHNIQUE: Axial computed tomography images of the face without intravenous contrast. All CT scans at this facility use one or more dose reduction techniques, viz.: automated exposure control; ma/kV adjustment per patient size (including targeted exams where dose is matched to indication; i.e. head); or iterative reconstruction technique. Coronal and sagittal reformatted images were created and reviewed. COMPARISON: No relevant prior studies available. FINDINGS: BONES/JOINTS: No acute fractures seen. No evidence of acute dislocation. SOFT TISSUES: Left facial soft tissue swelling. ORBITS: Intraorbital soft tissues appear grossly intact. No evidence of significant orbital emphysema. SINUSES: Mucosal thickening in the left maxillary sinus. There is high density material in the left maxillary sinus. This finding can be seen with inspissated secretions from longstanding sinus inflammatory disease. It can also be seen with fungal sinusitis, however, and recommend clinical correlation. No evidence of sinus fluid levels. MASTOID AIR CELLS: Small amount of fluid in right mastoid air cells, consistent with mild right mastoiditis. IMPRESSION: - No acute facial bone fractures identified. - See above for remaining findings. Thank you for allowing us to participate in the care of your patient. Dictated and Authenticated by: Leona Turpin MD 02/11/2017 3:06 AM Eastern Time ([place] & [place]) Scribe Attestation Documented by Susie Olsen acting as a scribe for Dr. Roly Phan. Provider Attestation: All medical record entries made by the Scribe were at my direction and personally dictated by me. I have reviewed the chart and agree that the record accurately reflects my personal performance of the history, physical exam, medical decision making, and the department course for this patient. I have also personally directed, reviewed, and agree with the discharge instructions and disposition. Procedures - Laceration/Wound Repair Right Face Wound Length (cm): 1.5 Wound's Depth, Shape: superficial, linear Wound Explored: clean Wound Repaired With: Steri-strips Wound Complexity: Simple Sterile Dressing Applied?: Yes Disposition - Clinical Impression Clinical Impression: Head injury - Disposition Referrals: Broderick Bean MD [Primary Care Provider] - Disposition Time: 03:30 Condition: STABLE Instructions: Head Injury (ED), Steristrips (ED) Forms: Hailo (Tajik)
--- NOTE | 2017-02-11 03:02 | CT ---
EXAM: CT Head Without Intravenous Contrast EXAM DATE/TIME: 02/11/2017 1:08 AM CLINICAL HISTORY: 86 years old, female; Injury or trauma; Fall TECHNIQUE: Axial computed tomography images of the head/brain without intravenous contrast. All CT scans at this facility use one or more dose reduction techniques, viz.: automated exposure control; ma/kV adjustment per patient size (including targeted exams where dose is matched to indication; i.e. head); or iterative reconstruction technique. Coronal and sagittal reformatted images were created and reviewed. COMPARISON: No relevant prior studies available. 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 Areas of hypodensity seen in the white matter bilaterally, nonspecific in appearance, but most likely representing chronic small vessel ischemic changes, in a patient of this age. Diffuse, marked, age-related cortical atrophy and ventriculomegaly. No significant acute abnormality identified. No acute hemorrhage seen within the brain. No acute extra-axial fluid collections visualized. No evidence of significant mass effect within the brain. VENTRICLES: See above. BONES/JOINTS: No acute fractures or other acute bony abnormality noted. SOFT TISSUES: Soft tissue swelling and a 3 x 1 cm biconcave soft tissue hematoma in the left frontal scalp. VASCULATURE: Atherosclerotic calcification. SINUSES: Moderate mucosal thickening in the left maxillary sinus. There is high density material in the left maxillary sinus. This finding can be seen with inspissated secretions from longstanding sinus inflammatory disease. It can also be seen with fungal sinusitis, however, and recommend clinical correlation. Remaining visualized paranasal sinuses appear clear. MASTOID AIR CELLS: Mastoid air cells appear clear. IMPRESSION: - No evidence of acute intracranial injury or fractures. - Small hematoma in the left frontal scalp. - Left maxillary sinus disease. Please see above for a full description. - See above for remaining findings.
--- NOTE | 2017-02-11 03:07 | CT ---
EXAM: CT Maxillofacial Without Intravenous Contrast EXAM DATE/TIME: 02/11/2017 1:08 AM CLINICAL HISTORY: 86 years old, female; Injury or trauma; Fall; Initial encounter; Abrasion; Forehead TECHNIQUE: Axial computed tomography images of the face without intravenous contrast. All CT scans at this facility use one or more dose reduction techniques, viz.: automated exposure control; ma/kV adjustment per patient size (including targeted exams where dose is matched to indication; i.e. head); or iterative reconstruction technique. Coronal and sagittal reformatted images were created and reviewed. COMPARISON: No relevant prior studies available. FINDINGS: BONES/JOINTS: No acute fractures seen. No evidence of acute dislocation. SOFT TISSUES: Left facial soft tissue swelling. ORBITS: Intraorbital soft tissues appear grossly intact. No evidence of significant orbital emphysema. SINUSES: Mucosal thickening in the left maxillary sinus. There is high density material in the left maxillary sinus. This finding can be seen with inspissated secretions from longstanding sinus inflammatory disease. It can also be seen with fungal sinusitis, however, and recommend clinical correlation. No evidence of sinus fluid levels. MASTOID AIR CELLS: Small amount of fluid in right mastoid air cells, consistent with mild right mastoiditis. IMPRESSION: - No acute facial bone fractures identified. - See above for remaining findings.
--- NOTE | 2017-02-11 07:02 | RAD ---
EXAM: XR Pelvis, 1 or 2 Views EXAM DATE/TIME: 02/11/2017 5:48 AM CLINICAL HISTORY: 86 years old, female; Injury or trauma; Fall; Initial encounter; Blunt trauma (contusions or hematomas); Bilateral; Pelvic region TECHNIQUE: Frontal view of the pelvis. 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 Bony structures appear demineralized. Moderate scoliotic curvature of the lumbar spine and multilevel degenerative disc disease of the lumbar spine incidentally noted. No acute fractures are seen radiographically. No evidence of acute dislocation. No evidence of significant widening of the pubic symphysis or sacroiliac joints. SOFT TISSUES: No radiographic evidence of significant soft tissue abnormality. TUBES, LINES AND DEVICES: Tube is seen projected over the abdomen, which may represent a percutaneous gastrostomy. Recommend clinical correlation. IMPRESSION: - No acute fractures identified. - See above for remaining findings.
[2017-02-11 08:04] VITALS: BP 118/88; PULSE 71; RESP 20; TEMP 97.5; O2SAT 97
--- NOTE | 2017-02-11 10:57 | RAD ---
PROCEDURE: CHEST RADIOGRAPH, 1 VIEW HISTORY: fall COMPARISON: Portable chest 10/07/2016 FINDINGS: LUNGS: No acute infiltrate is identified. Pulmonary vascular pattern appears unremarkable. PLEURA: No pneumothorax or pleural fluid seen. CARDIOVASCULAR: Normal. OSSEOUS STRUCTURES: No significant abnormalities. VISUALIZED UPPER ABDOMEN: Normal. OTHER FINDINGS: None. IMPRESSION: No acute cardiopulmonary disease or significant interval change appreciated.
== END 2017-02-11 08:04 ==
LOC: H.ER 00:44 → H.EROBSV 03:54
PROVIDERS: ADMIT Emergency Medicine; ATTEND Emergency Medicine
DX: S01.81XA Laceration without foreign body of other part of head, initial encounter (principal); W19.XXXA Unspecified fall, initial encounter; Y93.9 Activity, unspecified; Y92.129 Unspecified place in nursing home as the place of occurrence of the external cause; E11.22 Type 2 diabetes mellitus with diabetic chronic kidney disease; E78.00 Pure hypercholesterolemia, unspecified; G30.9 Alzheimer's disease, unspecified; F02.80 Dementia in other diseases classified elsewhere, unspecified severity, without behavioral disturbance, psychotic disturbance, mood disturbance, and anxiety; I12.9 Hypertensive chronic kidney disease with stage 1 through stage 4 chronic kidney disease, or unspecified chronic kidney disease; N18.9 Chronic kidney disease, unspecified; Z88.0 Allergy status to penicillin; F32.9 Major depressive disorder, single episode, unspecified; F41.9 Anxiety disorder, unspecified; E11.9 Type 2 diabetes mellitus without complications; S00.81XA Abrasion of other part of head, initial encounter
CPT/HCPCS: 12011; 70450; 70486; 71010; 72170; 96374; 99284; G0378; J2060

== ENCOUNTER 2018-04-06 09:40 | Inpatient (IN) | payer MEDICARE, MEDICAID ==
[2018-04-06 09:42] VITALS: BMI 21.1
[2018-04-06 10:56] LABS: VENOUS BLOOD GAS BASE EXCESS 0.5 mmol/L (0.0-2.0); VENOUS BLOOD GAS PCO2 37 mmHg (40-60); VENOUS BLOOD GAS PO2 38 mm/Hg (30-55); VENOUS BLOOD PH 7.43 (7.32-7.43)
[2018-04-06] MEDS ORDERED: Sodium Chloride 0.9% 1,000 ML IV STA ×4 (11:00→14:27)
[2018-04-06 11:16] LABS: BASO # 0.1 K/uL (0.0-0.2); BASO % 0.4 % (0.0-2.0); LYMPH # 1.1 K/uL (1.0-4.3); LYMPH % 8.1 % (20.0-40.0); MEAN CELL VOLUME 88.8 fl (81.0-99.0); MEAN CORPUSCULAR HEMOGLOBIN 29.7 pg (27.0-31.0); MEAN CORPUSCULAR HGB CONC 33.4 g/dL (33.0-37.0); MEAN PLATELET VOLUME 8.5 fl (7.2-11.7); MONO % 7.6 % (0.0-10.0); NEUT # 11.3 K/uL (1.8-7.0); NEUT % 83.9 % (50.0-75.0); PLATELET COUNT 345 K/uL (130-400); RBC 4.39 Mil/uL (3.80-5.20); WHITE BLOOD COUNT 13.5 K/uL (4.8-10.8)
[2018-04-06 11:22] LABS: ALB/GLOB RATIO 1.1 (1.0-2.1); ALBUMIN 3.6 g/dL (3.5-5.0); BLOOD UREA NITROGEN 23 mg/dl (7-17); GFR NON-AFRICAN AMERICAN > 60; LIPASE 53 U/L (23-300)
[2018-04-06 11:24] LABS: ALT/SGPT 24 U/L (9-52); AST/SGOT 37 U/L (14-36)
[2018-04-06 11:34] LABS: INR 1.1; PROTHROMBIN TIME 12.2 Seconds (9.8-13.1)
[2018-04-06 11:36] LABS: PARTIAL THROMBOPLASTIN TIME 25.8 Seconds (25.6-37.1)
--- NOTE | 2018-04-06 12:02 | ED PDOC ---
HPI: Female Pain Time Seen by Provider: 04/06/18 10:01 Chief Complaint (Nursing): Female Genitourinary Chief Complaint (Provider): Female Genitourinary History Per: Other (prison documents) History/Exam Limitations: clinical condition Additional History Per: [facility] Additional Complaint(s): Betzaida Garcia is a 87 year old female with a past medical history of dementia, Diabetes, chronic kidney disease, cysts and prior hospitalization for sepsis, who was sent to the emergency department by her prison due to blood in urine. Patient has dementia at baseline and is unable to provide information. Her paperwork states she has a UTI and was noticed to have blood in urine this morning prompting her to come to the ED. She is DNI and DNR. Patient's son's name is Doug Pickett and his phone number is [phone]. PMD: Broderick Ruiz Past Medical History Reviewed: Historical Data, Nursing Documentation, Vital Signs Vital Signs: Last Vital Signs Temp 97.7 F 04/06/18 10:06 Pulse 102 H 04/06/18 11:33 Resp 19 04/06/18 11:33 BP 105/59 L 04/06/18 11:33 Pulse Ox 97 04/06/18 11:33 - Medical History PMH: Alzheimer's Disease, Anxiety, Dementia, Depression, Diabetes, HTN, Hypercholesterolemia, Chronic Kidney Disease Denies: HIV - Surgical History Surgical History: No Surg Hx - Family History Family History: States: Unknown Family Hx - Home Medications Home Medications: Ambulatory Orders Medication Instructions Recorded Acetaminophen [Tylenol 325mg tab] 650 mg GT Q4 PRN 04/06/18 Acetaminophen [Tylenol 325mg tab] 650 mg GT Q4 PRN 04/06/18 Ascorbic Acid [Vitamin C] 500 mg GT DAILY 04/06/18 Aspirin [Aspirin Chewable] 81 mg GT DAILY 04/06/18 Atorvastatin [Lipitor] 10 mg GT HS 04/06/18 Bacitracin OINT 1 appl TOP BID 04/06/18 Bisacodyl [Dulcolax] 10 mg NM DAILY PRN 04/06/18 Divalproex [Depakote Sprinkles] 125 mg GT QPM 04/06/18 Donepezil [Aricept] 10 mg GT HS 04/06/18 Ergocalciferol (Vitamin D2) 6.25 ml GT WE 04/06/18 [Ergocalciferol] Lactulose [Generlac] 30 ml GT DAILY PRN 04/06/18 Losartan [Cozaar] 100 mg GT DAILY 04/06/18 Memantine [Namenda] 10 mg GT HS 04/06/18 Multivitamin Oral Soln [Theravite 10 ml GT DAILY 04/06/18 Oral Soln] Nystatin [Nyamyc] 1 appl TOP QSHIFT 04/06/18 Redgranite-3/Dha/Epa/Fish Oil [Fish Oil 5 ml GT BID 04/06/18 1,600 mg/5 ml Liquid] guaiFENesin/Dextromethorphan 10 ml GT Q6 04/06/18 [Robitussin DM] - Allergies Allergies/Adverse Reactions: Allergies Allergy/AdvReac Type Severity Reaction Status Date / Time Penicillins Allergy UNKNOWN Verified 04/06/18 10:05 Review of Systems ROS Statement: Except As Marked, All Systems Reviewed And Found Negative Respiratory: Positive for: Cough Genitourinary Female: Positive for: Hematuria Physical Exam - Reviewed Nursing Documentation Reviewed: Yes Vital Signs Reviewed: Yes - Physical Exam Appears: Positive for: Non-toxic, In Acute Distress (painful distress and appears altered ) Head Exam: Positive for: ATRAUMATIC, NORMOCEPHALIC Skin: Positive for: Normal Color, Warm, Dry Eye Exam: Positive for: Normal appearance, EOMI, PERRL ENT: Positive for: Normal ENT Inspection Neck: Positive for: Normal, Painless ROM, Supple Cardiovascular/Chest: Positive for: Regular Rate, Rhythm. Negative for: Murmur Respiratory: Positive for: Normal Breath Sounds. Negative for: Respiratory Distress Gastrointestinal/Abdominal: Positive for: Soft (pushing hand away in all quadrants ), Other (G-tube in place; stoma well healed; no signs of infections ) Back: Positive for: Normal Inspection, Other (erythema along sacrum but no skin break down). Negative for: L CVA Tenderness, R CVA Tenderness, Vertebral Tenderness Extremity: Positive for: Normal ROM, Other (healing yellow ecchymosis to proximal right arm but full ROM at arm and no TTP to arm ). Negative for: Pedal Edema, Deformity Neurologic/Psych: Positive for: Alert. Negative for: Motor/Sensory Deficits - Laboratory Results Result Diagrams: 04/06/18 10:42 04/06/18 10:42 - ECG O2 Sat by Pulse Oximetry: 97 (RA) Pulse Ox Interpretation: Normal Medical Decision Making Medical Decision Making: Initial Time: 10:18 A/P: Work up for UTI, tachycardia on monitor and will give EKG. Further work up for sepsis source is possibly from urine vs. cellulitis vs. intra abdominal infection or lungs. Point of care lactate and reassess patient. Plan: --CMP --Lipase --EKG --Chest X-ray --Urine Culture --Urinalysis Time: 10:42 Plan: --CBC with differential --Blood culture --Urinary Catheter --VBG --PTT --PT Time: 11:00 Plan: --Haldol 2.5 mg IVP --Sodium Chloride 1,000 ml Time: 11:34 While assisted RN with placement of catheter, gross blood coming from the urethra was observed prior to placement of catheter. As a result no catheter was placed. Provider will consult with urology. Time: 11:37 Plan: --Pelvis with obliques x-ray --Cystogram Time: 12:30 X-ray FINDINGS: LUNGS: Clear. PLEURA: No pneumothorax or pleural fluid seen. CARDIOVASCULAR: Normal. OSSEOUS STRUCTURES: No significant abnormalities. VISUALIZED UPPER ABDOMEN: Normal. OTHER FINDINGS: None. IMPRESSION: No active disease. Scribe Attestation: Documented by Walter Rodriguez, acting as a scribe for Perla Johnson MD. Provider Scribe Attestation: All medical record entries made by the Scribe were at my direction and personally dictated by me. I have reviewed the chart and agree that the record accurately reflects my personal performance of the history, physical exam, medical decision making, and the department course for this patient. I have also personally directed, reviewed, and agree with the discharge instructions and disposition. Spoke with Dr. Bean at 2:35 to discuss patient for admission. Dr. Bean agrees with admission and requests consult with Dr. Singh for urology consult regarding hematuria. Dr. Singh contacted and will consult on the patient. CT abd pelvis shows mild hyronephrosis. Levofloxacin started for urinary tract coverage. Pt received IV fluids. Vitals improved. Disposition - Disposition
--- NOTE | 2018-04-06 12:33 | RAD ---
Date of service: 04/06/2018 PROCEDURE: CHEST RADIOGRAPH, 1 VIEW HISTORY: cough COMPARISON: 02/11/2017 FINDINGS: LUNGS: Clear. PLEURA: No pneumothorax or pleural fluid seen. CARDIOVASCULAR: Normal. OSSEOUS STRUCTURES: No significant abnormalities. VISUALIZED UPPER ABDOMEN: Normal. OTHER FINDINGS: None. IMPRESSION: No active disease.
[2018-04-06 13:11] LABS: BANDS 2 % (0-2); BASOPHIL 1 % (0-2); LYMPHOCYTE 7 % (20-50); MONOCYTE 4 % (0-10); NEUTROPHIL 86 % (42-75); PLATELET ESTIMATE NORMAL (NORMAL); TOTAL CELLS COUNTED 100
[2018-04-06] MEDS ORDERED: Sodium Chloride 0.9% 50 ML IV ONE (13:30)
[2018-04-06] MEDS ORDERED: Iohexol 300 100 ML IJ ONE (13:30)
--- NOTE | 2018-04-06 15:52 | CT ---
Date of service: 04/06/2018 PROCEDURE: CT Abdomen and Pelvis with contrast HISTORY: diffuse abd pain and gross hematuria COMPARISON: Abdomen and pelvis CT with contrast 12/01/2014. TECHNIQUE: Helical CT of the abdomen pelvis was performed following intravenous contrast alone. Oral contrast was not administered as requested. Multiple time dependent series were performed through the abdomen and pelvis including solitary lengthy did delayed series through the pelvis alone. Further, preliminary CT was performed prior to intravenous contrast administration through the abdomen and pelvis. Contrast dose: Omnipaque 300, 90 cc Radiation dose: Total exam DLP = 2156.14 mGy-cm. This CT exam was performed using one or more of the following dose reduction techniques: Automated exposure control, adjustment of the mA and/or kV according to patient size, and/or use of iterative reconstruction technique. FINDINGS: LOWER THORAX: Cardiomegaly is reiterated. No pleural or pericardial effusion or restrained motion degrades quality of the images through the lung bases and upper abdomen. LIVER: Hepatic steatosis is again identified without focal mass demonstrated. GALLBLADDER AND BILE DUCTS: Gallbladder is distended but otherwise unremarkable. PANCREAS: Atrophic but nonfocal pancreas is reiterated. SPLEEN: Unremarkable. ADRENALS: Unremarkable. No mass. KIDNEYS AND URETERS: Mild bilateral hydronephrosis appreciated as well as [id number] bilateral hydroureter without obvious radiodense urolithiasis appreciated. This may be a function of obstructive uropathy related to hematuria or potential underlying mass in the urinary bladder. No enhancing mass is appreciable in the bladder however the wall is thickened with thickened folds present and limited pericholecystic reaction. Consider possible cystitis though neoplasm is not excluded. Further, small diverticula are not excluded related to the periphery of the urinary bladder but are felt to be simulated due to urinary bladder mural hypertrophy rather than true diverticula. No extravasated iodinated contrast material identified. VASCULATURE: Nonaneurysmal abdominal aortic calcific atherosclerotic changes are identified. BOWEL: Stomach decompressed by a gastrostomy tube. No large or small bowel obstruction is identified. No suspicious pattern to suggest enteritis or colitis either. APPENDIX: No CT evidence to suggest appendicitis. PERITONEUM: Unremarkable. No free fluid. No free air. LYMPH NODES: Unremarkable. No enlarged lymph nodes. BLADDER: Unremarkable. REPRODUCTIVE: Unremarkable. BONES: A gross levoscoliotic lumbar spinal deformity is appreciate with multilevel spondylosis identified. Further, degenerative sacroiliac and hip joint changes appear advanced. No destructive bony lesion identified. No fracture or dislocation throughout the pelvis. OTHER FINDINGS: None. IMPRESSION: 1. Hematoma is identified in the urinary bladder with Hughes catheter in position. Bilateral hydronephrosis appears mild and is likely a function of obstruction due to this hematoma. Underlying mass not excluded. Further, abnormal mural changes are appreciate with pericystic reaction to suggest possible cystitis though neoplasm is not excluded. Further clinical correlation is recommended. Previously, urine bladder was thick-walled but fully decompressed. Mural thickening may be a chronic process, likely creating pseudo diverticula rather than multiple small intrinsic diverticula. No extravasated iodinated contrast material identified throughout the abdomen and pelvis. 2. Hepatic steatosis. 3. Prior gastrostomy tube deployment decompressing the stomach. Gastrointestinal tract otherwise unremarkable.
--- NOTE | 2018-04-06 16:24 | CARD ---
APPROVED REPORT Date of service: 04/06/2018 EKG Measurement Heart [id number] <Conclusion> Sinus tachycardia with short MS Left axis deviation Right bundle branch block Abnormal ECG
--- NOTE | 2018-04-06 16:58 | RAD ---
Date of service: 04/06/2018 PROCEDURE: Radiographs of the pelvis. HISTORY: recent falls, pain COMPARISON: None. FINDINGS: BONES: Pelvic Bones: Unremarkable. Hips: Grossly unremarkable. JOINTS: Sacroiliac Joints: Unremarkable. Pubic Symphysis: Unremarkable. OTHER FINDINGS: The urinary bladder is distended with contrast material from contrast CT earlier on the same date. There is bilateral hydroureter. There is a large filling defect seen within the urinary bladder corresponding to soft tissue density within the bladder on CT examination. Possible blood clot and/or neoplasm. A Hughes catheter balloon is identified. IMPRESSION: Neoplasm versus clot or combination within the urinary bladder. Bilateral hydroureter. Hughes catheter. No osseous fracture appreciated.
[2018-04-06 17:26] LABS: URINE BACTERIA OCC (<OCC); URINE BILIRUBIN NEGATIVE (NEGATIVE); URINE BLOOD LARGE (NEGATIVE); URINE CLARITY TURBID (Clear); URINE COLOR RED (YELLOW); URINE GLUCOSE (UA) >=500 mg/dL (Normal); URINE LEUKOCYTE ESTERASE NEG Leu/uL (Negative); URINE PROTEIN 100 mg/dL (NEGATIVE); URINE UROBILINOGEN 0.2-1.0 mg/dL (0.2-1.0); WBC CLUMPS MANY /hpf
[2018-04-06] MEDS: Sodium Chloride 0.45% 1,000 ML IV SCH (23:00)
[2018-04-07] MEDS ORDERED: Influenza Vaccine (5 YR UP)/PF 60 MCG/0.5 ML SYR IM ONE (05:00)
[2018-04-07 06:00] LABS: HEMOGLOBIN 11.5 g/dL (12.0-16.0); MEAN CELL VOLUME 87.7 fl (81.0-99.0); MEAN CORPUSCULAR HGB CONC 34.3 g/dL (33.0-37.0); RBC 3.84 Mil/uL (3.80-5.20); WHITE BLOOD COUNT 8.7 K/uL (4.8-10.8)
[2018-04-07 06:08] LABS: ALBUMIN 3.2 g/dL (3.5-5.0); ALT/SGPT 26 U/L (9-52); AST/SGOT 27 U/L (14-36); BLOOD UREA NITROGEN 17 mg/dl (7-17); CALCIUM 8.7 mg/dL (8.4-10.2); GFR NON-AFRICAN AMERICAN > 60; HDL CHOLESTEROL 51 MG/DL (30-70)
[2018-04-07 06:13] LABS: LDL CHOLESTEROL 59 mg/dL (0-129)
[2018-04-07] MEDS: Insulin Lispro (humaLOG) 100 Units/ml Inj SC SCH ×4 (07:56→22:22)
[2018-04-07] MEDS ORDERED: FISH OIL GT SCH (09:00)
[2018-04-07] MEDS ORDERED: EPA GT SCH (09:00)
[2018-04-07] MEDS ORDERED: OMEGA GT SCH (09:00)
[2018-04-07] MEDS ORDERED: DHA GT SCH (09:00)
[2018-04-07] MEDS: levoFLOXacin 750 mg in D5W 750 MG/150 ML BAG IVPB SCH (09:39)
[2018-04-07] MEDS: Bacitracin OINT 15GM TOP SCH ×2 (09:40→19:22)
[2018-04-07] MEDS ORDERED: Potassium Chloride 20 mEq ER Tab PO ONE (12:49)
[2018-04-07] MEDS: Sodium Chloride 0.45% 1,000 ML IV SCH (13:10)
--- NOTE | 2018-04-07 15:06 | CP.PCM.HP ---
History of Present Illness - History of Present Illness History of Present Illness: CC: Abdominal pain. 87 y/o F, Status DNR/DNI, Hx Dementia /Alzheimer, CKD, HTN, Peg Tube status, resident at [facility], bought via EMS to [place] on 04/06/18, for evaluation of intermittent abdominal pain more prominent to lower quadrant of moderate to severe intensity 7:10, associated to bright blood in urine, with strong odor, onset AM DOA while in [place], with no relief of symptoms. Worsening symptom: Generalized weakness, impaired gait, TMAx 100.6 F in AM. Aggravated factor: Movements. No report of Fever, chills n/v/d, CP, SOB, cough, syncope, sick contact. Pelvis X-Ray showed: Neoplasm vs clot or combination within the urine bladder. B/L Hydroureter. CT Abd/Pelv: Hematoma in the Urinary bladder. B/L Hydronephrosis, mass, possible cystitis through neoplasm is not excluded. EKG: Sinus Tachycardia with shorts OR, L axis deviation, R BBB. CXR: No active disease. Present on Admission - Present on Admission Any Indicators Present on Admission: No Review of Systems - Review of Systems Systems not reviewed;Unavailable: Acuity of Condition, Dementia Past Patient History - Infectious Disease Hx of Infectious Diseases: None - Tetanus Immunizations Tetanus Immunization: Unknown - Past Medical History & Family History Past Medical History?: Yes Pertinent Family History: Unknown - Past Social History Smoking Status: Never Smoked Alcohol: None Drugs: Denies Home Situation {Lives}: Usp - CARDIAC Hx Cardiac Disorders: Yes Hx Hypercholesterolemia: Yes Hx Hypertension: Yes - PULMONARY Hx Respiratory Disorders: No - NEUROLOGICAL Hx Neurological Disorder: Yes Hx Alzheimer's Disease: Yes Hx Dementia: Yes - HEENT Hx HEENT Problems: Yes (Hard of hearing) - RENAL Hx Chronic Kidney Disease: Yes Other/Comment: renal cyst - ENDOCRINE/METABOLIC Hx Endocrine Disorders: Yes Hx Diabetes Mellitus Type 2: Yes - HEMATOLOGICAL/ONCOLOGICAL Hx Blood Disorders: Yes Hx AIDS: No Hx Cancer: Yes (Breast) Hx Human Immunodeficiency Virus (HIV): No - INTEGUMENTARY Hx Dermatological Problems: Yes Hx Cellulitis: Yes Other/Comment: Sacral ulcer - MUSCULOSKELETAL/RHEUMATOLOGICAL Hx Musculoskeletal Disorders: Yes Hx Falls: Yes Hx Unsteady Gait: Yes - GASTROINTESTINAL Hx Gastrointestinal Disorders: Yes Other/Comment: Peg tube - GENITOURINARY/GYNECOLOGICAL Hx Genitourinary Disorders: Yes (Urinary retention and mehta catheter.) Hx Hematuria: Yes Hx Urinary Tract Infection: Yes - PSYCHIATRIC Hx Psychophysiologic Disorder: Yes Hx Anxiety: Yes Hx Depression: Yes Hx Substance Use: No - SURGICAL HISTORY Hx Surgeries: Yes Hx Mastectomy: Yes Other/Comment: Mastectomy-Breast cancer. - ANESTHESIA Hx Anesthesia: Yes (reviewed from [place] papers.) Hx Anesthesia Reactions: No Meds Allergies/Adverse Reactions: Allergies Allergy/AdvReac Type Severity Reaction Status Date / Time Penicillins Allergy UNKNOWN Verified 04/06/18 10:05 Physical Exam - Constitutional Appears: Chronically Ill - Head Exam Head Exam: NORMAL INSPECTION - Eye Exam Eye Exam: PERRL - ENT Exam Additional comments: Hard of hearing. - Neck Exam Neck exam: Positive for: Normal Inspection - Respiratory Exam Respiratory Exam: NORMAL BREATHING PATTERN - Cardiovascular Exam Cardiovascular Exam: REGULAR RHYTHM, Systolic Murmur (1/6 LSB [place]) - GI/Abdominal Exam GI & Abdominal Exam: Soft Additional comments: G Tube L upper abdomen, clean, no infection. - Exam Additional comments: Mehta Cath with bloody urine - Extremities Exam Additional comments: Ecchymosis R anterior shoulder. - Back Exam Additional comments: Erythema sacral area - Neurological Exam Neurological exam: Abnormal Gait Additional comments: Awake, confused, disoriented, unclear speech, weakness, unable to walk. - Skin Skin Exam: Warm Additional comments: See extremities. Results - Vital Signs Recent Vital Signs: Last Vital Signs Temp 99.4 F 04/07/18 11:59 Pulse 117 H 04/07/18 11:59 Resp 18 04/07/18 11:59 BP 108/64 04/07/18 11:59 Pulse Ox 98 04/07/18 11:59 reviewed J.P. - Labs Result Diagrams: 04/07/18 16:00 04/07/18 16:00 Labs: Laboratory Results - last 24 hr 04/06/18 04/07/18 04/07/18 16:31 04:25 04:25 WBC 8.7 RBC 3.84 Hgb 11.5 L Hct 33.7 L MCV 87.7 MCH 30.0 MCHC 34.3 RDW 14.0 Plt Count 206 D Sodium 140 Potassium 3.2 L Chloride 111 H Carbon Dioxide 20 L Anion Gap 12 BUN 17 Creatinine 0.5 L Est GFR ( Amer) > 60 Est GFR (Non-Af Amer) > 60 POC Glucose (mg/dL) Random Glucose 193 H Hemoglobin A1c Calcium 8.7 Total Bilirubin 0.7 AST 27 ALT 26 Alkaline Phosphatase 84 Total Protein 6.3 Albumin 3.2 L Globulin 3.2 Albumin/Globulin Ratio 1.0 Triglycerides 71 Cholesterol 116 LDL Cholesterol Direct 59 HDL Cholesterol 51 25-OH Vitamin D Total Thyroxine (T4) 7.40 TSH 3rd Generation 1.33 Urine Color Red Urine Clarity Turbid Urine pH 6.0 Ur Specific [place] 1.022 Urine Protein 100 Urine Glucose (UA) >=500 Urine Ketones Trace Urine Blood Large Urine Nitrate Negative Urine Bilirubin Negative Urine Urobilinogen 0.2-1.0 Ur Leukocyte Esterase Neg Urine RBC (Auto) 8495 H Urine WBC Clumps (Auto) Many H Urine Microscopic WBC 2093 H Urine Bacteria Occ H 04/07/18 04/07/18 04/07/18 04:25 04:25 05:09 WBC RBC Hgb Hct MCV MCH MCHC RDW Plt Count Sodium Potassium Chloride Carbon Dioxide Anion Gap BUN Creatinine Est GFR ( Amer) Est GFR (Non-Af Amer) POC Glucose (mg/dL) 191 H Random Glucose Hemoglobin A1c 6.2 Calcium Total Bilirubin AST ALT Alkaline Phosphatase Total Protein Albumin Globulin Albumin/Globulin Ratio Triglycerides Cholesterol LDL Cholesterol Direct HDL Cholesterol 25-OH Vitamin D Total 31.7 Thyroxine (T4) TSH 3rd Generation Urine Color Urine Clarity Urine pH Ur Specific [place] Urine Protein Urine Glucose (UA) Urine Ketones Urine Blood Urine Nitrate Urine Bilirubin Urine Urobilinogen Ur Leukocyte Esterase Urine RBC (Auto) Urine WBC Clumps (Auto) Urine Microscopic WBC Urine Bacteria 04/07/18 11:00 WBC RBC Hgb Hct MCV MCH MCHC RDW Plt Count Sodium Potassium Chloride Carbon Dioxide Anion Gap BUN Creatinine Est GFR ( Amer) Est GFR (Non-Af Amer) POC Glucose (mg/dL) 232 H Random Glucose Hemoglobin A1c Calcium Total Bilirubin AST ALT Alkaline Phosphatase Total Protein Albumin Globulin Albumin/Globulin Ratio Triglycerides Cholesterol LDL Cholesterol Direct HDL Cholesterol 25-OH Vitamin D Total Thyroxine (T4) TSH 3rd Generation Urine Color Urine Clarity Urine pH Ur Specific [place] Urine Protein Urine Glucose (UA) Urine Ketones Urine Blood Urine Nitrate Urine Bilirubin Urine Urobilinogen Ur Leukocyte Esterase Urine RBC (Auto) Urine WBC Clumps (Auto) Urine Microscopic WBC Urine Bacteria reviewed J.P. - EKG Data EKG comments: reviewed J.P. - Imaging and Cardiology Chest x-ray Status: Report reviewed by me (Stephanie) CT scan - abdomen Status: Report reviewed by me (Stephanie) CT scan - pelvis Status: Report reviewed by me (Stephanie) Additional comment: Pelvis X-Ray: Reviewed J.P. Assessment & Plan (1) Hematuria Status: Acute Priority: High (2) Hematoma Status: Acute Comment: Urinary bladder. (3) Abdominal pain Status: Acute Priority: High (4) Hydronephrosis Status: Acute Priority: High (5) UTI (urinary tract infection) Status: Acute Priority: High (6) KERRIE (acute kidney injury) Status: Chronic Priority: High (7) Hyperglycemia Status: Acute Priority: High (8) Type 2 diabetes mellitus Status: Chronic Priority: High (9) HTN (hypertension) Status: Chronic Priority: High (10) Dementia Status: Chronic Priority: High (11) Feeding by G-tube Status: Chronic Priority: High - Assessment and Plan (Free Text) Plan: F/U Blood C-S, U C-S, Levaquin, Gentamicin, Bacitracin oit., Nystatin, IV fluid, Cozaar, Insulin, [place] and rest of Tx, PT eval, Urology and ID consult. - Date & Time Date: 04/07/18 Time: 10:00
[2018-04-07] MEDS ORDERED: Propofol 10 mg/ml Inj (20 ML) ONE (15:48)
[2018-04-07 16:10] LABS: HEMOGLOBIN 10.3 g/dL (12.0-16.0); MEAN CELL VOLUME 86.7 fl (81.0-99.0); MEAN CORPUSCULAR HEMOGLOBIN 29.7 pg (27.0-31.0); MEAN CORPUSCULAR HGB CONC 34.2 g/dL (33.0-37.0); RBC 3.46 Mil/uL (3.80-5.20); RED CELL DISTRIBUTION WIDTH 13.8 % (11.5-14.5); WHITE BLOOD COUNT 21.7 K/uL (4.8-10.8)
[2018-04-07 16:21] LABS: BLOOD UREA NITROGEN 24 mg/dl (7-17); CALCIUM 8.3 mg/dL (8.4-10.2); GFR NON-AFRICAN AMERICAN 52
[2018-04-07] MEDS ORDERED: Sodium Chloride 0.9% 1,000 ML IV ONE (16:47)
[2018-04-07] MEDS ORDERED: HYDROmorphone 0.5 mg/0.5 ml ISec IVP PRN (17:33)
[2018-04-07] MEDS ORDERED: Divalproex 125 mg Sprinkle Capsule GT SCH (18:00)
[2018-04-07] MEDS: Multi Vitamins 15 mL UD Oral Solution GT SCH (19:22)
[2018-04-07] MEDS: Sodium Chloride 0.9% 1,000 ML IV SCH (19:30)
[2018-04-07] MEDS: Gentamicin 80mg/50ml NS 80 MG/50 ML BAG IVPB SCH (21:54)
[2018-04-08] MEDS: Gentamicin 80mg/50ml NS 80 MG/50 ML BAG IVPB SCH ×3 (01:38→17:01)
--- NOTE | 2018-04-08 03:47 | OP ---
PROCEDURE DATE: 04/07/2018 PREOPERATIVE DIAGNOSIS: Gross hematuria. POSTOPERATIVE DIAGNOSIS: Hemorrhagic cystitis. PROCEDURES PERFORMED: Cystoscopy, evacuation of multiple clots with fulguration of bladder. SURGEON: Jaclyn Singh MD. DESCRIPTION OF PROCEDURE: The patient was placed on the operating room table in dorsal lithotomy position and given general anesthesia. The area of the groin was draped and prepped. At this time, using a #24 continuous flow resectoscope, I entered into the bladder atraumatically and began to evacuate the clots that were adherent to the bladder wall. Once the clots were completely removed, I did a visual examination of the bladder. There was heavy trabeculation noted in the bladder wall. There were areas of irritable tissue suspicious of cystitis. No bladder tumor was seen. No active bleeders at the time that I was seeing only areas of hyperemia which I did proceed to cauterize. Once this was done, then I inserted #22 three-way Hughes and started CBI which was completely clear. Then, the patient was taken from the operating room in good condition. Jaclyn Singh MD
[2018-04-08] MEDS: Sodium Chloride 0.9% 1,000 ML IV SCH ×2 (04:52→12:12)
[2018-04-08 06:49] LABS: BLOOD UREA NITROGEN 27 mg/dl (7-17); CALCIUM 8.1 mg/dL (8.4-10.2); GFR NON-AFRICAN AMERICAN > 60
[2018-04-08 07:01] LABS: HEMOGLOBIN 9.4 g/dL (12.0-16.0); MEAN CELL VOLUME 88.4 fl (81.0-99.0); MEAN CORPUSCULAR HEMOGLOBIN 29.9 pg (27.0-31.0); MEAN CORPUSCULAR HGB CONC 33.9 g/dL (33.0-37.0); RBC 3.13 Mil/uL (3.80-5.20); WHITE BLOOD COUNT 15.6 K/uL (4.8-10.8)
[2018-04-08] MEDS: Insulin Lispro (humaLOG) 100 Units/ml Inj SC SCH ×4 (08:10→23:00)
[2018-04-08] MEDS: levoFLOXacin 750 mg in D5W 750 MG/150 ML BAG IVPB SCH (09:05)
[2018-04-08] MEDS: Multi Vitamins 15 mL UD Oral Solution GT SCH (09:06)
[2018-04-08] MEDS: Bacitracin OINT 15GM TOP SCH ×2 (09:06→17:02)
--- NOTE | 2018-04-08 12:57 | CP.PCM.CON ---
History of Present Illness - History of Present Illness History of Present Illness: 87 year old female with a past medical history of dementia, Diabetes, chronic kidney disease, cysts and prior hospitalization for sepsis, who was sent to the emergency department by her senior living due to blood in urine. started on empiric IV rx- c/s + for ESBL E Coli and group B strep on board - Medical History PMH: Alzheimer's Disease, Anxiety, Dementia, Depression, Diabetes, HTN, Hypercholesterolemia, Chronic Kidney Disease Denies: HIV Review of Systems - Review of Systems Systems not reviewed;Unavailable: Altered Mental Status All systems: reviewed and no additional remarkable complaints except Past Patient History - Infectious Disease Hx of Infectious Diseases: None - Tetanus Immunizations Tetanus Immunization: Unknown - Past Medical History & Family History Past Medical History?: Yes - Past Social History Smoking Status: Never Smoked Alcohol: None Drugs: Denies Home Situation {Lives}: Snf - CARDIAC Hx Cardiac Disorders: Yes Hx Hypercholesterolemia: Yes Hx Hypertension: Yes - PULMONARY Hx Respiratory Disorders: No - NEUROLOGICAL Hx Neurological Disorder: Yes Hx Alzheimer's Disease: Yes Hx Dementia: Yes - HEENT Hx HEENT Problems: Yes (Hard of hearing) - RENAL Hx Chronic Kidney Disease: Yes Other/Comment: renal cyst - ENDOCRINE/METABOLIC Hx Endocrine Disorders: Yes Hx Diabetes Mellitus Type 2: Yes - HEMATOLOGICAL/ONCOLOGICAL Hx Blood Disorders: Yes Hx AIDS: No Hx Cancer: Yes (Breast) Hx Human Immunodeficiency Virus (HIV): No - INTEGUMENTARY Hx Dermatological Problems: Yes Hx Cellulitis: Yes Other/Comment: Sacral ulcer - MUSCULOSKELETAL/RHEUMATOLOGICAL Hx Musculoskeletal Disorders: Yes Hx Falls: Yes Hx Unsteady Gait: Yes - GASTROINTESTINAL Hx Gastrointestinal Disorders: Yes Other/Comment: Peg tube - GENITOURINARY/GYNECOLOGICAL Hx Genitourinary Disorders: Yes (Urinary retention and mehta catheter.) Hx Hematuria: Yes Hx Urinary Tract Infection: Yes - PSYCHIATRIC Hx Psychophysiologic Disorder: Yes Hx Anxiety: Yes Hx Depression: Yes Hx Substance Use: No - SURGICAL HISTORY Hx Surgeries: Yes Hx Mastectomy: Yes Other/Comment: Mastectomy-Breast cancer. - ANESTHESIA Hx Anesthesia: Yes (reviewed from [place] papers.) Hx Anesthesia Reactions: No Meds Allergies/Adverse Reactions: Allergies Allergy/AdvReac Type Severity Reaction Status Date / Time Penicillins Allergy UNKNOWN Verified 04/06/18 10:05 - Medications Medications: Current Medications Acetaminophen (Tylenol 325mg Tab) 650 mg GT Q4 PRN PRN Reason: Temp >101 Acetaminophen (Tylenol 325mg Tab) 650 mg GT Q4 PRN PRN Reason: Pain, moderate (4-7) Ascorbic Acid (Vitamin C 500 Mg Tab) 500 mg GT DAILY [facility] Last Admin: 04/08/18 09:07 Dose: 500 mg Atorvastatin Calcium (Lipitor) 10 mg GT HS [facility] Last Admin: 04/07/18 21:58 Dose: 10 mg Bacitracin (Bacitracin Oint) 1 applic TOP BID [facility] Last Admin: 04/08/18 09:06 Dose: 1 applic Bisacodyl (Dulcolax) 10 mg MA DAILY PRN PRN Reason: No bowel movement x 3 days Divalproex Sodium (Depakote Sprinkles) 125 mg GT QPM [facility] Last Admin: 04/07/18 19:00 Dose: Not Given Donepezil HCl (Aricept) 10 mg GT HS [facility] Last Admin: 04/07/18 21:58 Dose: 10 mg Levofloxacin/Dextrose (Levaquin 750mg) 750 mg in 150 mls @ 100 mls/hr IVPB DAILY [facility]; Protocol Last Admin: 04/08/18 09:05 Dose: 100 mls/hr Gentamicin Sulfate/Sodium Chloride (Gentamicin 80mg/50ml Ns) 80 mg in 50 mls @ 50 mls/hr IVPB Q8 [facility]; Protocol Last Admin: 04/08/18 09:05 Dose: 50 mls/hr Sodium Chloride (Sodium Chloride 0.9%) 1,000 mls @ 125 mls/hr IV .Q8H [facility] Stop: 04/08/18 19:24 Last Admin: 04/08/18 12:12 Dose: 125 mls/hr Insulin Human Lispro (Humalog) 0 units SC ACCU-CHECK [facility]; Protocol Last Admin: 04/08/18 12:08 Dose: 3 units Losartan Potassium (Cozaar) 100 mg GT DAILY [facility] Last Admin: 04/08/18 09:07 Dose: Not Given Memantine (Namenda) 10 mg GT HS [facility] Last Admin: 04/07/18 21:58 Dose: 10 mg Multivitamins/Vitamin C (Multi-Delyn Liquid) 10 ml GT DAILY [facility] Last Admin: 04/08/18 09:06 Dose: 10 ml Nystatin (Nystop Topical Powder) 1 applic TOP QSHIFT [facility] Last Admin: 04/08/18 09:06 Dose: 1 applic Physical Exam - Constitutional Appears: Confused, Cachectic, Chronically Ill - Head Exam Head Exam: ATRAUMATIC, NORMOCEPHALIC - Eye Exam Eye Exam: PERRL. absent: Scleral icterus - ENT Exam ENT Exam: Mucous Membranes Dry, Normal External Ear Exam - Neck Exam Neck exam: Negative for: Lymphadenopathy - Respiratory Exam Respiratory Exam: Decreased Breath Sounds, Clear to Auscultation Bilateral - Cardiovascular Exam Cardiovascular Exam: REGULAR RHYTHM - GI/Abdominal Exam GI & Abdominal Exam: Diminished Bowel Sounds, Soft. absent: Tenderness - Rectal Exam Rectal Exam: Deferred - Exam Exam: NORMAL INSPECTION - Extremities Exam Extremities exam: Positive for: pedal pulses present. Negative for: calf tenderness, pedal edema, tenderness - Back Exam Back exam: absent: CVA tenderness (L), CVA tenderness (R) - Neurological Exam Neurological exam: Alert, CN II-XII Intact, Oriented x3, Reflexes Normal - Psychiatric Exam Psychiatric exam: Depressed - Skin Skin Exam: Dry, Intact Results - Vital Signs Recent Vital Signs: Last Vital Signs Temp 98.2 F 04/08/18 12:12 Pulse 106 H 04/08/18 12:12 Resp 18 04/08/18 12:12 BP 92/52 L 04/08/18 12:12 Pulse Ox 97 04/08/18 12:12 - Labs Result Diagrams: 04/08/18 04:45 04/08/18 04:45 Labs: Laboratory Results - last 24 hr 04/07/18 04/07/18 04/07/18 16:00 16:00 16:00 WBC 21.7 H D RBC 3.46 L Hgb 10.3 L Hct 30.0 L MCV 86.7 MCH 29.7 MCHC 34.2 RDW 13.8 Plt Count 211 Sodium 139 Potassium 3.7 Chloride 111 H Carbon Dioxide 21 L Anion Gap 11 BUN 24 H Creatinine 1.0 Est GFR ( Amer) > 60 Est GFR (Non-Af Amer) 52 POC Glucose (mg/dL) Random Glucose 178 H Calcium 8.3 L Blood Type O POSITIVE Blood Type Confirm Antibody Screen Negative BBK History Checked No verified bt 04/07/18 04/07/18 04/07/18 17:25 18:11 21:14 WBC RBC Hgb Hct MCV MCH MCHC RDW Plt Count Sodium Potassium Chloride Carbon Dioxide Anion Gap BUN Creatinine Est GFR ( Amer) Est GFR (Non-Af Amer) POC Glucose (mg/dL) 146 H 154 H Random Glucose Calcium Blood Type Blood Type Confirm O POSITIVE Antibody Screen BBK History Checked 04/08/18 04/08/18 04/08/18 04:45 04:45 04:45 WBC 15.6 H RBC 3.13 L Hgb 9.4 L Hct 27.6 L MCV 88.4 MCH 29.9 MCHC 33.9 RDW 14.0 Plt Count 176 Sodium 142 Potassium 3.3 L Chloride 115 H Carbon Dioxide 22 Anion Gap 8 L BUN 27 H Creatinine 0.8 Est GFR ( Amer) > 60 Est GFR (Non-Af Amer) > 60 POC Glucose (mg/dL) Random Glucose 132 H Calcium 8.1 L Blood Type O POSITIVE Blood Type Confirm Antibody Screen Negative BBK History Checked Patient has bt 04/08/18 04/08/18 05:21 11:01 WBC RBC Hgb Hct MCV MCH MCHC RDW Plt Count Sodium Potassium Chloride Carbon Dioxide Anion Gap BUN Creatinine Est GFR ( Amer) Est GFR (Non-Af Amer) POC Glucose (mg/dL) 143 H 201 H Random Glucose Calcium Blood Type Blood Type Confirm Antibody Screen BBK History Checked Assessment & Plan (1) Abdominal pain Status: Acute Priority: High (2) Hematuria Status: Acute Priority: High (3) Hydronephrosis Status: Acute Priority: High (4) ESBL (extended spectrum beta-lactamase) producing bacteria infection Status: Acute (5) ESBL (extended spectrum beta-lactamase) producing bacteria infection Status: Acute - Assessment and Plan (Free Text) Assessment: IV rx ordered prognosis guarded await eval
[2018-04-08] MEDS ORDERED: Potassium Chloride 20 mEq/15 ml LIQ UD GT ONE (13:20)
--- NOTE | 2018-04-08 16:33 | CP.PCM.PN ---
Subjective - Date & Time of Evaluation Date of Evaluation: 04/08/18 Time of Evaluation: 13:30 - Subjective Subjective: F/U Hematuria/Hematoma Urinary bladder. Pt awake, confused. Objective - Vital Signs/Intake and Output Vital Signs (last 24 hours): Temp Pulse Resp BP Pulse Ox 99.0 F 108 H 18 90/54 L 94 L 04/08/18 15:44 04/08/18 15:44 04/08/18 15:44 04/08/18 15:44 04/08/18 15:44 Intake and Output: 04/08/18 04/08/18 06:59 18:59 Intake Total 2580 Balance 2580 - Medications Medications: Current Medications Acetaminophen (Tylenol 325mg Tab) 650 mg [place] Q4 PRN PRN Reason: Temp >101 Acetaminophen (Tylenol 325mg Tab) 650 mg [place] Q4 PRN PRN Reason: Pain, moderate (4-7) Ascorbic Acid (Vitamin C 500 Mg Tab) 500 mg GT DAILY [facility] Last Admin: 04/08/18 09:07 Dose: 500 mg Atorvastatin Calcium (Lipitor) 10 mg GT HS [facility] Last Admin: 04/07/18 21:58 Dose: 10 mg Bacitracin (Bacitracin Oint) 1 applic TOP BID [facility] Last Admin: 04/08/18 09:06 Dose: 1 applic Bisacodyl (Dulcolax) 10 mg [place] DAILY PRN PRN Reason: No bowel movement x 3 days Donepezil HCl (Aricept) 10 mg GT HS [facility] Last Admin: 04/07/18 21:58 Dose: 10 mg Hydromorphone HCl (Dilaudid) 0.5 mg IVP Q4 PRN PRN Reason: Pain, severe (8-10) Last Admin: 04/08/18 15:03 Dose: 0.5 mg Gentamicin Sulfate/Sodium Chloride (Gentamicin 80mg/50ml Ns) 80 mg in 50 mls @ 50 mls/hr IVPB Q8 [facility]; Protocol Last Admin: 04/08/18 09:05 Dose: 50 mls/hr Sodium Chloride (Sodium Chloride 0.9%) 1,000 mls @ 125 mls/hr IV .Q8H [facility] Stop: 04/08/18 19:24 Last Admin: 04/08/18 12:12 Dose: 125 mls/hr Insulin Human Lispro (Humalog) 0 units SC ACCU-CHECK [facility]; Protocol Last Admin: 04/08/18 12:08 Dose: 3 units Losartan Potassium (Cozaar) 100 mg GT DAILY [facility] Last Admin: 04/08/18 09:07 Dose: Not Given Memantine (Namenda) 10 mg GT HS [facility] Last Admin: 04/07/18 21:58 Dose: 10 mg Multivitamins/Vitamin C (Multi-Delyn Liquid) 10 ml GT DAILY [facility] Last Admin: 04/08/18 09:06 Dose: 10 ml Nystatin (Nystop Topical Powder) 1 applic TOP QSHIFT [facility] Last Admin: 04/08/18 09:06 Dose: 1 applic - Labs Labs: 04/08/18 04:45 04/08/18 04:45 PT 12.2 Seconds (9.8-13.1) 04/06/18 10:42 INR 1.1 04/06/18 10:42 APTT 25.8 Seconds (25.6-37.1) 04/06/18 10:42 - Constitutional Appears: Chronically Ill - Head Exam Head Exam: NORMAL INSPECTION - Eye Exam Eye Exam: PERRL - ENT Exam Additional comments: Hard of hearing - Neck Exam Neck Exam: Normal Inspection - Respiratory Exam Respiratory Exam: NORMAL BREATHING PATTERN - Cardiovascular Exam Cardiovascular Exam: REGULAR RHYTHM, Murmur (systolic 1/6 LSB [place]) - GI/Abdominal Exam GI & Abdominal Exam: Soft Additional comments: G tube L upper abdomen, clean, no infection - Exam Additional comments: CBI - Extremities Exam Additional comments: Ecchymosis R anterior shoulder - Back Exam Additional comments: Erythema sacral area - Neurological Exam Neurological Exam: Abnormal Gait, Awake Additional comments: Confused, disoriented, unclear speech, weakness, unable to walk. - Skin Skin Exam: Warm Additional comments: See extremities. Assessment and Plan (1) Cystitis Assessment & Plan: Cysto : Hemorrhagic Cystitis Status: Acute (2) Hematuria Status: Resolved (3) Hematoma Assessment & Plan: Hematoma Bladder resolved post Cysto Status: Resolved (4) Abdominal pain Status: Resolved (5) Hydronephrosis Status: Acute (6) UTI (urinary tract infection) Assessment & Plan: E Coli Status: Acute (7) Infection of PEG site Assessment & Plan: Staph MRSA, Proteus Status: Acute (8) KERRIE (acute kidney injury) Status: Chronic (9) Hyperglycemia Status: Acute (10) Type 2 diabetes mellitus Status: Chronic (11) HTN (hypertension) Status: Chronic (12) Dementia Status: Chronic (13) Feeding by G-tube Status: Chronic - Assessment and Plan (Free Text) Plan: Post Cytoscopy, continue CBI, Merren, and rest of Tx. DC Depakote, monitor BP, ID consult appreciated,
[2018-04-08] MEDS: DiphenhydrAMINE 50 mg/ml Inj IVP SCH (18:08)
[2018-04-08] MEDS: Meropenem 1 GM in Sodium Chloride 0.9% 100 ML IVPB SCH (18:09)
--- NOTE | 2018-04-08 18:46 | RAD ---
Date of service: 04/08/2018 HISTORY: Cough COMPARISON: 04/06/2018 FINDINGS: LUNGS: No active pulmonary disease. PLEURA: No significant pleural effusion identified, no pneumothorax apparent. CARDIOVASCULAR: No atherosclerotic calcification present No radiographic findings to suggest acute or significant cardiovascular disease. OSSEOUS STRUCTURES: No significant abnormalities. VISUALIZED UPPER ABDOMEN: Normal. OTHER FINDINGS: None. IMPRESSION: No active disease. No significant interval change compared to the prior examination(s).
--- NOTE | 2018-04-08 19:30 | CARD ---
APPROVED REPORT Date of service: 04/07/2018 EKG Measurement Heart [id number] <Conclusion> Sinus tachycardia Left axis deviation Right bundle branch block Septal infarct, age undetermined Abnormal ECG
[2018-04-09] MEDS: Meropenem 1 GM in Sodium Chloride 0.9% 100 ML IVPB SCH ×3 (01:00→18:09)
[2018-04-09] MEDS: Gentamicin 80mg/50ml NS 80 MG/50 ML BAG IVPB SCH ×3 (01:01→18:01)
[2018-04-09] MEDS: DiphenhydrAMINE 50 mg/ml Inj IVP SCH ×3 (01:04→18:11)
[2018-04-09 05:40] LABS: HEMOGLOBIN 10.4 g/dL (12.0-16.0); MEAN CELL VOLUME 88.6 fl (81.0-99.0); MEAN CORPUSCULAR HEMOGLOBIN 29.3 pg (27.0-31.0); RBC 3.57 Mil/uL (3.80-5.20); RED CELL DISTRIBUTION WIDTH 14.8 % (11.5-14.5); WHITE BLOOD COUNT 15.9 K/uL (4.8-10.8)
[2018-04-09] MEDS: Insulin Lispro (humaLOG) 100 Units/ml Inj SC SCH ×3 (07:01→18:00)
[2018-04-09 07:20] LABS: ALB/GLOB RATIO 0.9 (1.0-2.1); ALBUMIN 2.6 g/dL (3.5-5.0); ALT/SGPT 30 U/L (9-52); AST/SGOT 59 U/L (14-36); BLOOD UREA NITROGEN 21 mg/dl (7-17); CALCIUM 8.2 mg/dL (8.4-10.2); GFR NON-AFRICAN AMERICAN > 60
[2018-04-09] MEDS: Multi Vitamins 15 mL UD Oral Solution GT SCH (11:01)
[2018-04-09] MEDS: Bacitracin OINT 15GM TOP SCH (11:01)
--- NOTE | 2018-04-09 17:34 | CP.PCM.PN ---
Subjective - Date & Time of Evaluation Date of Evaluation: 04/09/18 Time of Evaluation: 10:20 - Subjective Subjective: F/U Hematuria No A/D, non verbal Objective - Vital Signs/Intake and Output Vital Signs (last 24 hours): Temp Pulse Resp BP Pulse Ox 98.7 F 93 H 18 155/71 H 96 04/09/18 16:04 04/09/18 16:04 04/09/18 16:04 04/09/18 16:04 04/09/18 16:04 Intake and Output: 04/09/18 04/09/18 06:59 18:59 Intake Total 150 Output Total 2400 Balance -2250 - Medications Medications: Current Medications Acetaminophen (Tylenol 325mg Tab) 650 mg GT Q4 PRN PRN Reason: Temp >101 Acetaminophen (Tylenol 325mg Tab) 650 mg GT Q4 PRN PRN Reason: Pain, moderate (4-7) Ascorbic Acid (Vitamin C 500 Mg Tab) 500 mg GT DAILY [facility] Last Admin: 04/09/18 11:02 Dose: 500 mg Atorvastatin Calcium (Lipitor) 10 mg GT HS [facility] Last Admin: 04/08/18 21:50 Dose: 10 mg Bisacodyl (Dulcolax) 10 mg [place] DAILY PRN PRN Reason: No bowel movement x 3 days Diphenhydramine HCl (Benadryl) 50 mg IVP Q8 [facility] Last Admin: 04/09/18 10:00 Dose: 50 mg Donepezil HCl (Aricept) 10 mg GT HS [facility] Last Admin: 04/08/18 21:50 Dose: 10 mg Hydromorphone HCl (Dilaudid) 0.5 mg IVP Q4 PRN PRN Reason: Pain, severe (8-10) Last Admin: 04/08/18 15:03 Dose: 0.5 mg Gentamicin Sulfate/Sodium Chloride (Gentamicin 80mg/50ml Ns) 80 mg in 50 mls @ 50 mls/hr IVPB Q8 [facility]; Protocol Last Admin: 04/09/18 10:00 Dose: 50 mls/hr Meropenem 1 gm/ Sodium (Chloride) 100 mls @ 100 mls/hr IVPB Q8 [facility]; Protocol Last Admin: 04/09/18 09:59 Dose: 100 mls/hr Insulin Human Lispro (Humalog) 0 units SC ACCU-CHECK [facility]; Protocol Last Admin: 04/09/18 07:01 Dose: 2 units Losartan Potassium (Cozaar) 100 mg GT DAILY [facility] Last Admin: 04/09/18 11:02 Dose: Not Given Memantine (Namenda) 10 mg GT HS [facility] Last Admin: 04/08/18 21:50 Dose: 10 mg Multivitamins/Vitamin C (Multi-Delyn Liquid) 10 ml GT DAILY [facility] Last Admin: 04/09/18 11:01 Dose: 10 ml Mupirocin (Bactroban Ointment) 1 applic TOP BID [facility] Nystatin (Nystop Topical Powder) 1 applic TOP QSHIFT [facility] Last Admin: 04/09/18 11:04 Dose: 1 applic - Labs Labs: 04/09/18 05:16 04/09/18 05:16 PT 12.2 Seconds (9.8-13.1) 04/06/18 10:42 INR 1.1 04/06/18 10:42 APTT 25.8 Seconds (25.6-37.1) 04/06/18 10:42 - Constitutional Appears: No Acute Distress, Chronically Ill - Head Exam Head Exam: NORMAL INSPECTION - Eye Exam Eye Exam: PERRL - ENT Exam Additional comments: Hard of hearing - Neck Exam Neck Exam: Normal Inspection - Respiratory Exam Respiratory Exam: NORMAL BREATHING PATTERN - Cardiovascular Exam Cardiovascular Exam: REGULAR RHYTHM, Murmur (systolic 1/6 LSB [place]) - GI/Abdominal Exam GI & Abdominal Exam: Soft Additional comments: G tube L upper abdomen - Extremities Exam Additional comments: Ecchymosis R anterior shoulder - Back Exam Additional comments: erythema sacral area - Neurological Exam Neurological Exam: Abnormal Gait, Awake Additional comments: Confused, disoriented, weakness, unable to walk. - Skin Skin Exam: Warm Assessment and Plan (1) Hematuria Status: Resolved (2) Hematoma Assessment & Plan: Bladder Status: Resolved (3) Abdominal pain Status: Resolved (4) Hydronephrosis Status: Acute (5) UTI (urinary tract infection) Assessment & Plan: E Coli , Tx Genta, Merren Status: Acute (6) KERRIE (acute kidney injury) Status: Chronic (7) Hyperglycemia Status: Acute (8) Type 2 diabetes mellitus Status: Chronic (9) HTN (hypertension) Status: Chronic (10) Dementia Status: Chronic (11) Feeding by G-tube Status: Chronic (12) Infection of PEG site Assessment & Plan: Staph MRSA Tx Bactroban Status: Acute - Assessment and Plan (Free Text) Plan: MRSA in Peg-Tube Tx Bactrobam, UTI E Coli Tx Thanh Cardenas, CBI DC, Hughes cath DC, to have PIC line
--- NOTE | 2018-04-09 17:46 | RAD ---
HISTORY: PICC line placement verification COMPARISON: Chest x-ray performed 04/08/18 TECHNIQUE: Chest, one view. FINDINGS: Interval addition of a right-sided PICC with distal tip extending to the expected location of the SVC. LUNGS: Mild to moderate pulmonary venous congestion. Hazy infiltrate at the right lung base. Small left pleural effusion. PLEURA: No significant pleural effusion identified. No definite pneumothorax . CARDIOVASCULAR: Cardiomegaly. Atherosclerotic calcification present. OSSEOUS STRUCTURES: Degenerative changes. Osseous demineralization. High-riding humeral heads may be seen in setting of chronic rotator cuff injury. Acromioclavicular arthropathy. VISUALIZED UPPER ABDOMEN: Unremarkable. OTHER FINDINGS: None. IMPRESSION: Interval addition of a right-sided PICC with distal tip extending to the expected location of the SVC. Mild to moderate pulmonary venous congestion. Hazy infiltrate at the right lung base. Small left pleural effusion. Cardiomegaly.
--- NOTE | 2018-04-09 18:15 | CP.PCM.PN ---
Subjective - Date & Time of Evaluation Date of Evaluation: 04/09/18 Time of Evaluation: 08:00 - Subjective Subjective: afeb no distress seen on rounds Genta level High- will hold Tolerating Merrem GT site + MRSA started Bactroban Objective - Vital Signs/Intake and Output Vital Signs (last 24 hours): Temp Pulse Resp BP Pulse Ox 98.7 F 93 H 18 155/71 H 96 04/09/18 16:04 04/09/18 16:04 04/09/18 16:04 04/09/18 16:04 04/09/18 16:04 Intake and Output: 04/09/18 04/09/18 06:59 18:59 Intake Total 150 Output Total 2400 Balance -2250 - Medications Medications: Current Medications Acetaminophen (Tylenol 325mg Tab) 650 mg GT Q4 PRN PRN Reason: Temp >101 Acetaminophen (Tylenol 325mg Tab) 650 mg GT Q4 PRN PRN Reason: Pain, moderate (4-7) Ascorbic Acid (Vitamin C 500 Mg Tab) 500 mg GT DAILY [facility] Last Admin: 04/09/18 11:02 Dose: 500 mg Atorvastatin Calcium (Lipitor) 10 mg GT HS [facility] Last Admin: 04/08/18 21:50 Dose: 10 mg Bisacodyl (Dulcolax) 10 mg [place] DAILY PRN PRN Reason: No bowel movement x 3 days Diphenhydramine HCl (Benadryl) 50 mg IVP Q8 [facility] Last Admin: 04/09/18 18:11 Dose: Not Given Donepezil HCl (Aricept) 10 mg GT HS [facility] Last Admin: 04/08/18 21:50 Dose: 10 mg Hydromorphone HCl (Dilaudid) 0.5 mg IVP Q4 PRN PRN Reason: Pain, severe (8-10) Last Admin: 04/08/18 15:03 Dose: 0.5 mg Meropenem 1 gm/ Sodium (Chloride) 100 mls @ 100 mls/hr IVPB Q8 [facility]; Protocol Last Admin: 04/09/18 18:09 Dose: 100 mls/hr Insulin Human Lispro (Humalog) 0 units SC ACCU-CHECK [facility]; Protocol Last Admin: 04/09/18 18:00 Dose: Not Given Losartan Potassium (Cozaar) 100 mg GT DAILY [facility] Last Admin: 04/09/18 11:02 Dose: Not Given Memantine (Namenda) 10 mg GT HS [facility] Last Admin: 04/08/18 21:50 Dose: 10 mg Multivitamins/Vitamin C (Multi-Delyn Liquid) 10 ml GT DAILY [facility] Last Admin: 04/09/18 11:01 Dose: 10 ml Mupirocin (Bactroban Ointment) 1 applic TOP BID [facility] Last Admin: 04/09/18 18:09 Dose: 1 applic Nystatin (Nystop Topical Powder) 1 applic TOP QSHIFT [facility] Last Admin: 04/09/18 11:04 Dose: 1 applic - Labs Labs: 04/09/18 05:16 04/09/18 05:16 PT 12.2 Seconds (9.8-13.1) 04/06/18 10:42 INR 1.1 04/06/18 10:42 APTT 25.8 Seconds (25.6-37.1) 04/06/18 10:42 - Constitutional Appears: Non-toxic, Chronically Ill - Head Exam Head Exam: NORMOCEPHALIC - Eye Exam Eye Exam: PERRL - ENT Exam ENT Exam: Mucous Membranes Dry - Neck Exam Neck Exam: absent: Lymphadenopathy - Respiratory Exam Respiratory Exam: Decreased Breath Sounds - Cardiovascular Exam Cardiovascular Exam: REGULAR RHYTHM - GI/Abdominal Exam GI & Abdominal Exam: Distended, Soft - Rectal Exam Rectal Exam: Deferred - Extremities Exam Extremities Exam: absent: Pedal Edema Assessment and Plan (1) Abdominal pain Status: Acute (2) Hematuria Status: Acute (3) Hydronephrosis Status: Acute (4) ESBL (extended spectrum beta-lactamase) producing bacteria infection Status: Acute (5) MRSA (methicillin resistant staph aureus) culture positive Status: Acute - Assessment and Plan (Free Text) Assessment: Genta level High- will hold Tolerating Merrem GT site + MRSA started Bactroban
[2018-04-10] MEDS: DiphenhydrAMINE 50 mg/ml Inj IVP SCH ×3 (00:30→17:50)
[2018-04-10] MEDS: Meropenem 1 GM in Sodium Chloride 0.9% 100 ML IVPB SCH ×3 (00:31→17:49)
[2018-04-10 05:32] LABS: HEMOGLOBIN 11.1 g/dL (12.0-16.0); MEAN CELL VOLUME 87.2 fl (81.0-99.0); MEAN CORPUSCULAR HEMOGLOBIN 29.7 pg (27.0-31.0); RBC 3.73 Mil/uL (3.80-5.20); WHITE BLOOD COUNT 10.2 K/uL (4.8-10.8)
[2018-04-10 06:01] LABS: BLOOD UREA NITROGEN 16 mg/dl (7-17); CALCIUM 8.1 mg/dL (8.4-10.2); GFR NON-AFRICAN AMERICAN > 60
[2018-04-10] MEDS: Insulin Lispro (humaLOG) 100 Units/ml Inj SC SCH ×5 (06:38→22:07)
[2018-04-10] MEDS: Potassium CL 10 MEQ/50 ML 50 ML IVPB SCH ×4 (07:01→11:25)
[2018-04-10] MEDS: Multi Vitamins 15 mL UD Oral Solution GT SCH (08:29)
--- NOTE | 2018-04-10 13:30 | CP.PCM.PN ---
Subjective - Date & Time of Evaluation Date of Evaluation: 04/10/18 Time of Evaluation: 07:00 - Subjective Subjective: Tolerating Merrem GT site + MRSA started Bactroban Objective - Vital Signs/Intake and Output Vital Signs (last 24 hours): Temp Pulse Resp BP Pulse Ox 97.8 F 96 H 20 142/79 96 04/10/18 08:47 04/10/18 09:00 04/10/18 08:47 04/10/18 08:47 04/10/18 08:47 - Medications Medications: Current Medications Acetaminophen (Tylenol 325mg Tab) 650 mg GT Q4 PRN PRN Reason: Temp >101 Acetaminophen (Tylenol 325mg Tab) 650 mg GT Q4 PRN PRN Reason: Pain, moderate (4-7) Ascorbic Acid (Vitamin C 500 Mg Tab) [address] [facility] Last Admin: 04/10/18 08:29 Dose: 500 mg Atorvastatin Calcium (Lipitor) [address] [facility] Last Admin: 04/09/18 21:40 Dose: 10 mg Bisacodyl (Dulcolax) 10 mg [place] DAILY PRN PRN Reason: No bowel movement x 3 days Diphenhydramine HCl (Benadryl) [address] [facility] Last Admin: 04/10/18 08:30 Dose: 50 mg Donepezil HCl (Aricept) [address] [facility] Last Admin: 04/09/18 21:40 Dose: 10 mg Hydromorphone HCl (Dilaudid) 0.5 mg IVP Q4 PRN PRN Reason: Pain, severe (8-10) Last Admin: 04/08/18 15:03 Dose: 0.5 mg Meropenem 1 gm/ Sodium (Chloride) 100 mls @ 100 mls/hr IVPB Q8 [facility]; Protocol Last Admin: 04/10/18 08:32 Dose: 100 mls/hr Insulin Human Lispro (Humalog) 0 units SC ACCU-CHECK [facility]; Protocol Last Admin: 04/10/18 11:24 Dose: 2 units Losartan Potassium (Cozaar) [address] [facility] Last Admin: 04/10/18 08:30 Dose: 100 mg Memantine (Namenda) [address] [facility] Last Admin: 04/09/18 21:41 Dose: 10 mg Multivitamins/Vitamin C (Multi-Delyn Liquid) [address] [facility] Last Admin: 04/10/18 08:29 Dose: 10 ml Mupirocin (Bactroban Ointment) [address] [facility] Last Admin: 04/10/18 08:31 Dose: 1 applic Nystatin (Nystop Topical Powder) [address] [facility] Last Admin: 04/09/18 22:24 Dose: 1 applic - Labs Labs: 04/10/18 04:55 04/10/18 04:55 PT 12.2 Seconds (9.8-13.1) 04/06/18 10:42 INR 1.1 04/06/18 10:42 APTT 25.8 Seconds (25.6-37.1) 04/06/18 10:42 - Constitutional Appears: Non-toxic, Confused, Cachectic, Chronically Ill - Eye Exam Eye Exam: absent: Scleral icterus - ENT Exam ENT Exam: Mucous Membranes Dry - Neck Exam Neck Exam: absent: Lymphadenopathy - Respiratory Exam Respiratory Exam: Decreased Breath Sounds - Cardiovascular Exam Cardiovascular Exam: REGULAR RHYTHM - GI/Abdominal Exam GI & Abdominal Exam: Distended, Soft - Rectal Exam Rectal Exam: Deferred - Exam Exam: NORMAL INSPECTION Assessment and Plan (1) Abdominal pain Status: Acute (2) Hematuria Status: Acute (3) Hydronephrosis Status: Acute (4) ESBL (extended spectrum beta-lactamase) producing bacteria infection Status: Acute (5) MRSA (methicillin resistant staph aureus) culture positive Status: Acute - Assessment and Plan (Free Text) Assessment: Tolerating Merrem GT site + MRSA started Bactroban
--- NOTE | 2018-04-10 17:09 | CP.PCM.PN ---
Subjective - Date & Time of Evaluation Date of Evaluation: 04/10/18 Time of Evaluation: 11:40 - Subjective Subjective: F/U Hematuria awakw, non verbal, no AD Objective - Vital Signs/Intake and Output Vital Signs (last 24 hours): Temp Pulse Resp BP Pulse Ox 98 F 105 H 20 165/78 H 96 04/10/18 16:15 04/10/18 16:15 04/10/18 16:15 04/10/18 16:15 04/10/18 16:15 - Medications Medications: Current Medications Acetaminophen (Tylenol 325mg Tab) 650 mg GT Q4 PRN PRN Reason: Temp >101 Acetaminophen (Tylenol 325mg Tab) 650 mg GT Q4 PRN PRN Reason: Pain, moderate (4-7) Ascorbic Acid (Vitamin C 500 Mg Tab) 500 mg GT DAILY [facility] Last Admin: 04/10/18 08:29 Dose: 500 mg Atorvastatin Calcium (Lipitor) 10 mg GT HS [facility] Last Admin: 04/09/18 21:40 Dose: 10 mg Bisacodyl (Dulcolax) 10 mg [place] DAILY PRN PRN Reason: No bowel movement x 3 days Diphenhydramine HCl (Benadryl) 50 mg IVP Q8 [facility] Last Admin: 04/10/18 08:30 Dose: 50 mg Donepezil HCl (Aricept) 10 mg GT HS [facility] Last Admin: 04/09/18 21:40 Dose: 10 mg Hydromorphone HCl (Dilaudid) 0.5 mg IVP Q4 PRN PRN Reason: Pain, severe (8-10) Last Admin: 04/08/18 15:03 Dose: 0.5 mg Meropenem 1 gm/ Sodium (Chloride) 100 mls @ 100 mls/hr IVPB Q8 [facility]; Protocol Last Admin: 04/10/18 08:32 Dose: 100 mls/hr Insulin Human Lispro (Humalog) 0 units SC ACCU-CHECK [facility]; Protocol Last Admin: 04/10/18 11:24 Dose: 2 units Losartan Potassium (Cozaar) 100 mg [place] DAILY [facility] Last Admin: 04/10/18 08:30 Dose: 100 mg Memantine (Namenda) 10 mg GT HS [facility] Last Admin: 04/09/18 21:41 Dose: 10 mg Multivitamins/Vitamin C (Multi-Delyn Liquid) 10 ml GT DAILY [facility] Last Admin: 04/10/18 08:29 Dose: 10 ml Mupirocin (Bactroban Ointment) 1 applic TOP BID [facility] Last Admin: 04/10/18 08:31 Dose: 1 applic Nystatin (Nystop Topical Powder) 1 applic TOP QSHIFT [facility] Last Admin: 04/09/18 22:24 Dose: 1 applic - Labs Labs: 04/10/18 04:55 04/10/18 04:55 PT 12.2 Seconds (9.8-13.1) 04/06/18 10:42 INR 1.1 04/06/18 10:42 APTT 25.8 Seconds (25.6-37.1) 04/06/18 10:42 - Constitutional Appears: Chronically Ill - Head Exam Head Exam: NORMAL INSPECTION - Eye Exam Eye Exam: PERRL - ENT Exam Additional comments: Hard of hearing - Neck Exam Neck Exam: Normal Inspection - Respiratory Exam Respiratory Exam: NORMAL BREATHING PATTERN - Cardiovascular Exam Cardiovascular Exam: REGULAR RHYTHM, Murmur (systolic 1/6 LSB [place]) - GI/Abdominal Exam GI & Abdominal Exam: Soft, Normal Bowel Sounds Additional comments: Erythema around Peg tube. - Extremities Exam Additional comments: Ecchymosis R anterior shoulder - Back Exam Additional comments: Eruythema sacral area - Neurological Exam Neurological Exam: Abnormal Gait, Awake Additional comments: no verbal, Patient attemps to talk, reneralized weakness, unable to walk - Skin Skin Exam: Warm Assessment and Plan (1) Cystitis Assessment & Plan: Hemorrhagic Status: Resolved (2) Hematuria Assessment & Plan: resolved Status: Resolved (3) Hematoma Status: Resolved (4) Abdominal pain Status: Resolved (5) Hydronephrosis Status: Acute (6) UTI (urinary tract infection) Assessment & Plan: E Coli Status: Deleted (7) KERRIE (acute kidney injury) Status: Chronic (8) Hyperglycemia Status: Acute (9) Type 2 diabetes mellitus Status: Chronic (10) HTN (hypertension) Status: Chronic (11) Dementia Status: Chronic (12) Feeding by G-tube Status: Chronic - Assessment and Plan (Free Text) Plan: K 2.3, Kreplacement, f/u BMP 6pm, continue Merren and rest of treatment
[2018-04-11] MEDS: DiphenhydrAMINE 50 mg/ml Inj IVP SCH ×3 (00:21→16:50)
[2018-04-11] MEDS: Meropenem 1 GM in Sodium Chloride 0.9% 100 ML IVPB SCH ×3 (00:21→16:52)
[2018-04-11 08:16] LABS: BLOOD UREA NITROGEN 14 mg/dl (7-17); CALCIUM 7.7 mg/dL (8.4-10.2); GFR NON-AFRICAN AMERICAN > 60
[2018-04-11] MEDS: Insulin Lispro (humaLOG) 100 Units/ml Inj SC SCH ×4 (08:30→23:14)
[2018-04-11] MEDS: Multi Vitamins 15 mL UD Oral Solution GT SCH (09:09)
[2018-04-11] MEDS: Potassium CL 10mEq/100ml 100 ML IVPB SCH ×4 (11:17→14:55)
--- NOTE | 2018-04-11 17:31 | CP.PCM.PN ---
Subjective - Date & Time of Evaluation Date of Evaluation: 04/11/18 - Subjective Subjective: awake, no AD, non verbal Objective - Vital Signs/Intake and Output Vital Signs (last 24 hours): Temp Pulse Resp BP Pulse Ox 98.2 F 58 L 20 105/59 L 96 04/11/18 15:48 04/11/18 15:48 04/11/18 15:48 04/11/18 15:48 04/11/18 15:48 - Medications Medications: Current Medications Acetaminophen (Tylenol 325mg Tab) 650 mg [place] Q4 PRN PRN Reason: Temp >101 Acetaminophen (Tylenol 325mg Tab) 650 mg [place] Q4 PRN PRN Reason: Pain, moderate (4-7) Ascorbic Acid (Vitamin C 500 Mg Tab) 500 mg GT DAILY [facility] Last Admin: 04/11/18 09:10 Dose: 500 mg Atorvastatin Calcium (Lipitor) 10 mg GT HS [facility] Last Admin: 04/10/18 21:51 Dose: 10 mg Bisacodyl (Dulcolax) 10 mg [place] DAILY PRN PRN Reason: No bowel movement x 3 days Diphenhydramine HCl (Benadryl) 50 mg IVP Q8 [facility] Last Admin: 04/11/18 16:50 Dose: 50 mg Donepezil HCl (Aricept) 10 mg GT HS [facility] Last Admin: 04/10/18 21:51 Dose: 10 mg Meropenem 1 gm/ Sodium (Chloride) 100 mls @ 100 mls/hr IVPB Q8 [facility]; Protocol Last Admin: 04/11/18 16:52 Dose: 100 mls/hr Insulin Human Lispro (Humalog) 0 units SC ACCU-CHECK [facility]; Protocol Last Admin: 04/11/18 16:51 Dose: 2 units Losartan Potassium (Cozaar) 100 mg [place] DAILY [facility] Last Admin: 04/11/18 09:06 Dose: 100 mg Memantine (Namenda) 10 mg GT HS [facility] Last Admin: 04/10/18 21:51 Dose: 10 mg Multivitamins/Vitamin C (Multi-Delyn Liquid) 15 ml [place] DAILY [facility] Mupirocin (Bactroban Ointment) 1 applic TOP BID [facility] Last Admin: 04/11/18 16:50 Dose: 1 applic Nystatin (Nystop Topical Powder) 1 applic TOP QSHIFT [facility] Last Admin: 04/09/18 22:24 Dose: 1 applic - Labs Labs: 04/10/18 04:55 04/11/18 05:40 PT 12.2 Seconds (9.8-13.1) 04/06/18 10:42 INR 1.1 04/06/18 10:42 APTT 25.8 Seconds (25.6-37.1) 04/06/18 10:42 - Constitutional Appears: Chronically Ill - Head Exam Head Exam: NORMAL INSPECTION - Eye Exam Eye Exam: PERRL - ENT Exam ENT Exam: Normal Exam - Neck Exam Neck Exam: Normal Inspection - Cardiovascular Exam Cardiovascular Exam: REGULAR RHYTHM, Murmur - GI/Abdominal Exam GI & Abdominal Exam: Soft, Normal Bowel Sounds Additional comments: Erythema around Peg tube. - Extremities Exam Additional comments: ecchymosis R anterior shoulde - Back Exam Additional comments: sacral erythema - Neurological Exam Neurological Exam: Awake Additional comments: non verbal, generalized weakness - Skin Skin Exam: Warm Assessment and Plan (1) E-coli UTI Assessment & Plan: Tx Merren Status: Acute (2) MRSA (methicillin resistant staph aureus) culture positive Assessment & Plan: PEG site , Tx Bactrobam Status: Acute (3) Cystitis Status: Resolved (4) Hematuria Status: Resolved (5) Hematoma Status: Resolved (6) Abdominal pain Status: Resolved (7) Hydronephrosis Status: Acute (8) KERRIE (acute kidney injury) Status: Chronic (9) Hyperglycemia Status: Acute (10) Type 2 diabetes mellitus Status: Chronic (11) HTN (hypertension) Status: Chronic (12) Dementia Status: Chronic (13) Infection of PEG site Status: Acute (14) Feeding by G-tube Status: Chronic - Assessment and Plan (Free Text) Plan: Hypokalemi, K 2.3, K replacement, continue Merren, Bactrobam and rest of Tx
[2018-04-12] MEDS: Meropenem 1 GM in Sodium Chloride 0.9% 100 ML IVPB SCH ×3 (01:11→17:11)
[2018-04-12] MEDS: DiphenhydrAMINE 50 mg/ml Inj IVP SCH (01:46)
[2018-04-12 07:53] LABS: HEMOGLOBIN 10.5 g/dL (12.0-16.0); MEAN CELL VOLUME 85.9 fl (81.0-99.0); MEAN CORPUSCULAR HEMOGLOBIN 29.2 pg (27.0-31.0); RBC 3.6 Mil/uL (3.80-5.20); WHITE BLOOD COUNT 7.4 K/uL (4.8-10.8)
[2018-04-12 08:42] LABS: ALB/GLOB RATIO 0.9 (1.0-2.1); ALBUMIN 2.5 g/dL (3.5-5.0); ALT/SGPT 84 U/L (9-52); AST/SGOT 143 U/L (14-36); BLOOD UREA NITROGEN 16 mg/dl (7-17); CALCIUM 7.3 mg/dL (8.4-10.2); GFR NON-AFRICAN AMERICAN > 60
[2018-04-12] MEDS: Insulin Lispro (humaLOG) 100 Units/ml Inj SC SCH ×4 (08:45→22:10)
[2018-04-12] MEDS: Multi Vitamins 15 mL UD Oral Solution GT SCH (10:25)
[2018-04-12] MEDS: DiphenhydrAMINE 12.5 mg/5 ml LIQ UD (5 ml) PO SCH ×2 (10:31→17:08)
[2018-04-12] MEDS: Potassium CL 10mEq/100ml 100 ML IVPB SCH ×4 (12:30→15:21)
--- NOTE | 2018-04-12 12:36 | CP.PCM.PN ---
Subjective - Date & Time of Evaluation Date of Evaluation: 04/12/18 Time of Evaluation: 10:00 - Subjective Subjective: afeb on rounds mental status same less GT drainage Objective - Vital Signs/Intake and Output Vital Signs (last 24 hours): Temp Pulse Resp BP Pulse Ox 97.3 F L 89 20 128/80 95 04/12/18 08:00 04/12/18 10:24 04/12/18 08:00 04/12/18 10:24 04/12/18 08:00 - Medications Medications: Current Medications Acetaminophen (Tylenol 325mg Tab) 650 mg GT Q4 PRN PRN Reason: Temp >101 Acetaminophen (Tylenol 325mg Tab) 650 mg GT Q4 PRN PRN Reason: Pain, moderate (4-7) Ascorbic Acid (Vitamin C 500 Mg Tab) 500 mg GT DAILY [facility] Last Admin: 04/12/18 10:25 Dose: 500 mg Atorvastatin Calcium (Lipitor) 10 mg GT HS [facility] Last Admin: 04/12/18 00:05 Dose: 10 mg Bisacodyl (Dulcolax) 10 mg [place] DAILY PRN PRN Reason: No bowel movement x 3 days Diphenhydramine HCl (Benadryl) 50 mg PO Q8H [facility] Last Admin: 04/12/18 10:31 Dose: 50 mg Donepezil HCl (Aricept) 10 mg GT HS [facility] Last Admin: 04/12/18 00:05 Dose: 10 mg Meropenem 1 gm/ Sodium (Chloride) 100 mls @ 100 mls/hr IVPB Q8 [facility]; Protocol Last Admin: 04/12/18 10:32 Dose: 100 mls/hr Potassium Chloride (Potassium Chloride 10 Meq/100 Ml) 100 mls @ 100 mls/hr IVPB Q1 [facility] Stop: 04/12/18 15:59 Insulin Human Lispro (Humalog) 0 units SC ACCU-CHECK [facility]; Protocol Last Admin: 04/12/18 08:45 Dose: 2 units Losartan Potassium (Cozaar) 100 mg GT DAILY [facility] Last Admin: 04/12/18 10:24 Dose: 100 mg Memantine (Namenda) 10 mg GT HS [facility] Last Admin: 04/12/18 00:05 Dose: 10 mg Multivitamins/Vitamin C (Multi-Delyn Liquid) 15 ml GT DAILY [facility] Last Admin: 04/12/18 10:25 Dose: 15 ml Mupirocin (Bactroban Ointment) 1 applic TOP BID [facility] Last Admin: 04/12/18 10:23 Dose: 1 applic Nystatin (Nystop Topical Powder) 1 applic TOP QSHIFT [facility] Last Admin: 04/12/18 01:13 Dose: 1 applic Potassium Chloride (Potassium Chloride Oral Soln) 20 meq PO ONCE ONE Stop: 04/12/18 17:01 - Labs Labs: 04/12/18 06:00 04/12/18 06:00 PT 12.2 Seconds (9.8-13.1) 04/06/18 10:42 INR 1.1 04/06/18 10:42 APTT 25.8 Seconds (25.6-37.1) 04/06/18 10:42 - Constitutional Appears: Non-toxic, Confused, Cachectic, Chronically Ill - Head Exam Head Exam: NORMOCEPHALIC - Eye Exam Eye Exam: PERRL - ENT Exam ENT Exam: Mucous Membranes Dry - Neck Exam Neck Exam: absent: Lymphadenopathy - Respiratory Exam Respiratory Exam: Decreased Breath Sounds - Cardiovascular Exam Cardiovascular Exam: REGULAR RHYTHM - GI/Abdominal Exam GI & Abdominal Exam: Distended, Soft - Rectal Exam Rectal Exam: Deferred - Exam Exam: NORMAL INSPECTION - Extremities Exam Extremities Exam: absent: Pedal Edema - Back Exam Back Exam: absent: CVA tenderness (L), CVA tenderness (R) - Neurological Exam Neurological Exam: Altered - Psychiatric Exam Psychiatric exam: Depressed - Skin Skin Exam: Dry Assessment and Plan (1) Abdominal pain Status: Resolved (2) Hematuria Status: Resolved (3) Hydronephrosis Status: Acute (4) ESBL (extended spectrum beta-lactamase) producing bacteria infection Status: Deleted (5) MRSA (methicillin resistant staph aureus) culture positive Status: Acute - Assessment and Plan (Free Text) Assessment: cont iv rx for 14 days GI follow up re: GT site
--- NOTE | 2018-04-12 16:06 | CP.PCM.PN ---
Subjective - Date & Time of Evaluation Date of Evaluation: 04/12/18 - Subjective Subjective: F/U Hematuria Pt awake, non verbal, no A/D. Objective - Vital Signs/Intake and Output Vital Signs (last 24 hours): Temp Pulse Resp BP Pulse Ox 97.9 F 90 18 104/69 95 04/12/18 13:00 04/12/18 13:00 04/12/18 13:00 04/12/18 13:00 04/12/18 13:00 - Medications Medications: Current Medications Acetaminophen (Tylenol 325mg Tab) 650 mg GT Q4 PRN PRN Reason: Temp >101 Acetaminophen (Tylenol 325mg Tab) 650 mg GT Q4 PRN PRN Reason: Pain, moderate (4-7) Ascorbic Acid (Vitamin C 500 Mg Tab) 500 mg GT DAILY [facility] Last Admin: 04/12/18 10:25 Dose: 500 mg Atorvastatin Calcium (Lipitor) 10 mg GT HS [facility] Last Admin: 04/12/18 00:05 Dose: 10 mg Bisacodyl (Dulcolax) 10 mg [place] DAILY PRN PRN Reason: No bowel movement x 3 days Diphenhydramine HCl (Benadryl) 50 mg PO Q8H [facility] Last Admin: 04/12/18 10:31 Dose: 50 mg Donepezil HCl (Aricept) 10 mg GT HS [facility] Last Admin: 04/12/18 00:05 Dose: 10 mg Meropenem 1 gm/ Sodium (Chloride) 100 mls @ 100 mls/hr IVPB Q8 [facility]; Protocol Last Admin: 04/12/18 10:32 Dose: 100 mls/hr Insulin Human Lispro (Humalog) 0 units SC ACCU-CHECK [facility]; Protocol Last Admin: 04/12/18 13:00 Dose: 3 units Losartan Potassium (Cozaar) 100 mg GT DAILY [facility] Last Admin: 04/12/18 10:24 Dose: 100 mg Memantine (Namenda) 10 mg GT HS [facility] Last Admin: 04/12/18 00:05 Dose: 10 mg Multivitamins/Vitamin C (Multi-Delyn Liquid) 15 ml GT DAILY [facility] Last Admin: 04/12/18 10:25 Dose: 15 ml Mupirocin (Bactroban Ointment) 1 applic TOP BID [facility] Last Admin: 04/12/18 10:23 Dose: 1 applic Nystatin (Nystop Topical Powder) 1 applic TOP QSHIFT [facility] Last Admin: 04/12/18 01:13 Dose: 1 applic Potassium Chloride (Potassium Chloride Oral Soln) 20 meq PO ONCE ONE Stop: 04/12/18 17:01 - Labs Labs: 04/12/18 06:00 04/12/18 06:00 PT 12.2 Seconds (9.8-13.1) 04/06/18 10:42 INR 1.1 04/06/18 10:42 APTT 25.8 Seconds (25.6-37.1) 04/06/18 10:42 - Constitutional Appears: Chronically Ill - Head Exam Head Exam: NORMAL INSPECTION - Eye Exam Eye Exam: PERRL - ENT Exam ENT Exam: Normal Exam Additional comments: hard of hearing - Neck Exam Neck Exam: Normal Inspection - Respiratory Exam Respiratory Exam: NORMAL BREATHING PATTERN - Cardiovascular Exam Cardiovascular Exam: REGULAR RHYTHM, Murmur (systolic 1/6 LSB [place]) - GI/Abdominal Exam GI & Abdominal Exam: Soft, Normal Bowel Sounds Additional comments: Erythema around Peg tube - Extremities Exam Additional comments: Ecchymosis R anterior shoulder - Back Exam Additional comments: Erythema sacral area - Neurological Exam Neurological Exam: Awake Additional comments: Confused, non verbal, weakness, unable to walk - Skin Skin Exam: Warm Assessment and Plan (1) E-coli UTI Status: Acute (2) MRSA (methicillin resistant staph aureus) culture positive Status: Acute (3) Cystitis Status: Resolved (4) Hematuria Status: Resolved (5) Hematoma Status: Resolved (6) Abdominal pain Status: Resolved (7) Hydronephrosis Status: Acute (8) KERRIE (acute kidney injury) Status: Chronic (9) Hypokalemia Status: Acute (10) Hyperglycemia Status: Acute (11) Type 2 diabetes mellitus Status: Chronic (12) HTN (hypertension) Status: Chronic (13) Dementia Status: Chronic (14) Infection of PEG site Status: Acute (15) Feeding by G-tube Status: Chronic - Assessment and Plan (Free Text) Plan: Continue Merren, Potassium and rest of Tx. GI consult in AM.
[2018-04-12] MEDS ORDERED: Potassium Chloride 20 mEq/15 ml LIQ UD PO ONE (17:00)
[2018-04-13] MEDS: DiphenhydrAMINE 12.5 mg/5 ml LIQ UD (5 ml) PO SCH (00:23)
[2018-04-13] MEDS: Meropenem 1 GM in Sodium Chloride 0.9% 100 ML IVPB SCH ×3 (00:25→17:28)
[2018-04-13] MEDS: Insulin Lispro (humaLOG) 100 Units/ml Inj SC SCH ×4 (06:33→22:09)
[2018-04-13 06:37] LABS: BASO % 0.4 % (0.0-2.0); EOS # 0.2 K/uL (0.0-0.7); EOS % 2.4 % (0.0-4.0); HEMOGLOBIN 10.6 g/dL (12.0-16.0); LYMPH # 1.3 K/uL (1.0-4.3); LYMPH % 14.8 % (20.0-40.0); MEAN CELL VOLUME 85.9 fl (81.0-99.0); MEAN CORPUSCULAR HEMOGLOBIN 29.7 pg (27.0-31.0); MEAN CORPUSCULAR HGB CONC 34.5 g/dL (33.0-37.0); MEAN PLATELET VOLUME 9.5 fl (7.2-11.7); MONO % 11.5 % (0.0-10.0); NEUT # 6.2 K/uL (1.8-7.0); NEUT % 70.9 % (50.0-75.0); RBC 3.57 Mil/uL (3.80-5.20); RED CELL DISTRIBUTION WIDTH 13.8 % (11.5-14.5); WHITE BLOOD COUNT 8.7 K/uL (4.8-10.8)
[2018-04-13 07:25] LABS: ALB/GLOB RATIO 0.8 (1.0-2.1); ALBUMIN 2.6 g/dL (3.5-5.0); ALT/SGPT 108 U/L (9-52); AST/SGOT 155 U/L (14-36); BLOOD UREA NITROGEN 17 mg/dl (7-17); CALCIUM 7.4 mg/dL (8.4-10.2); GFR NON-AFRICAN AMERICAN > 60
[2018-04-13] MEDS: Potassium Chloride 20 mEq/15 ml LIQ UD NG SCH (09:48)
[2018-04-13] MEDS: Multi Vitamins 15 mL UD Oral Solution GT SCH (09:50)
--- NOTE | 2018-04-13 11:04 | CARD ---
APPROVED REPORT Date of service: 04/12/2018 EKG Measurement Heart [id number] ID [id number] <Conclusion> Sinus rhythm with premature atrial complexes Right bundle branch block Left anterior fascicular block Bifascicular block Possible septal infarct, age undetermined Abnormal ECG
--- NOTE | 2018-04-13 11:07 | CP.PCM.PN ---
Subjective - Date & Time of Evaluation Date of Evaluation: 04/13/18 Time of Evaluation: 08:00 - Subjective Subjective: events noted LFT's elevated Objective - Vital Signs/Intake and Output Vital Signs (last 24 hours): Temp Pulse Resp BP Pulse Ox 97.6 F 101 H 20 104/56 L 96 04/13/18 08:29 04/13/18 09:48 04/13/18 08:29 04/13/18 09:48 04/13/18 08:29 - Medications Medications: Current Medications Acetaminophen (Tylenol 325mg Tab) 650 mg GT Q4 PRN PRN Reason: Temp >101 Acetaminophen (Tylenol 325mg Tab) 650 mg GT Q4 PRN PRN Reason: Pain, moderate (4-7) Ascorbic Acid (Vitamin C 500 Mg Tab) 500 mg GT DAILY [facility] Last Admin: 04/13/18 09:48 Dose: 500 mg Atorvastatin Calcium (Lipitor) 10 mg GT HS [facility] Last Admin: 04/12/18 21:23 Dose: 10 mg Diphenhydramine HCl (Benadryl) 50 mg PO Q8H [facility] Last Admin: 04/13/18 00:23 Dose: 50 mg Donepezil HCl (Aricept) 10 mg GT HS [facility] Last Admin: 04/12/18 21:23 Dose: 10 mg Meropenem 1 gm/ Sodium (Chloride) 100 mls @ 100 mls/hr IVPB Q8 [facility]; Protocol Last Admin: 04/13/18 09:49 Dose: 100 mls/hr Insulin Human Lispro (Humalog) 0 units SC ACCU-CHECK [facility]; Protocol Last Admin: 04/13/18 06:33 Dose: 2 units Losartan Potassium (Cozaar) 100 mg GT DAILY [facility] Last Admin: 04/13/18 09:48 Dose: Not Given Memantine (Namenda) 10 mg GT HS [facility] Last Admin: 04/12/18 21:37 Dose: 10 mg Multivitamins/Vitamin C (Multi-Delyn Liquid) 15 ml GT DAILY [facility] Last Admin: 04/13/18 09:50 Dose: 15 ml Mupirocin (Bactroban Ointment) 1 applic TOP BID [facility] Last Admin: 04/13/18 09:48 Dose: 1 applic Nystatin (Nystop Topical Powder) 1 applic TOP QSHIFT [facility] Last Admin: 04/12/18 01:13 Dose: 1 applic Potassium Chloride (Potassium Chloride Oral Soln) 20 meq NG DAILY [facility] Last Admin: 04/13/18 09:48 Dose: 20 meq - Labs Labs: 04/13/18 06:26 04/13/18 06:26 PT 12.2 Seconds (9.8-13.1) 04/06/18 10:42 INR 1.1 04/06/18 10:42 APTT 25.8 Seconds (25.6-37.1) 04/06/18 10:42 - Constitutional Appears: Non-toxic, Chronically Ill - Head Exam Head Exam: NORMOCEPHALIC - Eye Exam Eye Exam: absent: Scleral icterus - ENT Exam ENT Exam: Mucous Membranes Dry - Neck Exam Neck Exam: absent: Lymphadenopathy - Respiratory Exam Respiratory Exam: Decreased Breath Sounds - Cardiovascular Exam Cardiovascular Exam: REGULAR RHYTHM - GI/Abdominal Exam GI & Abdominal Exam: Distended Assessment and Plan (1) Abdominal pain Status: Resolved (2) Hematuria Status: Resolved (3) Hydronephrosis Status: Acute (4) ESBL (extended spectrum beta-lactamase) producing bacteria infection Status: Deleted (5) MRSA (methicillin resistant staph aureus) culture positive Status: Acute
[2018-04-13] MEDS ORDERED: DiphenhydrAMINE 12.5 mg/5 ml LIQ UD (5 ml) PO PRN (12:25)
--- NOTE | 2018-04-13 15:19 | CP.PCM.PN ---
Objective - Vital Signs/Intake and Output Vital Signs (last 24 hours): Temp Pulse Resp BP Pulse Ox 97.2 F L 94 H 20 99/58 L 96 04/13/18 13:00 04/13/18 14:08 04/13/18 13:00 04/13/18 14:08 04/13/18 13:00 - Medications Medications: Current Medications Ascorbic Acid (Vitamin C 500 Mg Tab) 500 mg GT DAILY [facility] Last Admin: 04/13/18 09:48 Dose: 500 mg Atorvastatin Calcium (Lipitor) 10 mg GT HS [facility] Last Admin: 04/12/18 21:23 Dose: 10 mg Diphenhydramine HCl (Benadryl) 50 mg PO Q8H PRN PRN Reason: Allergy symptoms Donepezil HCl (Aricept) 10 mg GT HS [facility] Last Admin: 04/12/18 21:23 Dose: 10 mg Meropenem 1 gm/ Sodium (Chloride) 100 mls @ 100 mls/hr IVPB Q8 [facility]; Protocol Last Admin: 04/13/18 09:49 Dose: 100 mls/hr Insulin Human Lispro (Humalog) 0 units SC ACCU-CHECK [facility]; Protocol Last Admin: 04/13/18 14:09 Dose: 3 units Losartan Potassium (Cozaar) 100 mg GT DAILY [facility] Last Admin: 04/13/18 09:48 Dose: Not Given Memantine (Namenda) 10 mg GT HS [facility] Last Admin: 04/12/18 21:37 Dose: 10 mg Metoprolol Tartrate (Lopressor) 12.5 mg PO Q12 [facility] Last Admin: 04/13/18 14:08 Dose: 12.5 mg Multivitamins/Vitamin C (Multi-Delyn Liquid) 15 ml GT DAILY [facility] Last Admin: 04/13/18 09:50 Dose: 15 ml Mupirocin (Bactroban Ointment) 1 applic TOP BID [facility] Last Admin: 04/13/18 09:48 Dose: 1 applic Nystatin (Nystop Topical Powder) 1 applic TOP QSHIFT [facility] Last Admin: 04/13/18 14:12 Dose: 1 applic Potassium Chloride (Potassium Chloride Oral Soln) 20 meq NG DAILY [facility] Last Admin: 04/13/18 09:48 Dose: 20 meq - Labs Labs: 04/13/18 06:26 04/13/18 06:26 PT 12.2 Seconds (9.8-13.1) 04/06/18 10:42 INR 1.1 04/06/18 10:42 APTT 25.8 Seconds (25.6-37.1) 04/06/18 10:42 Assessment and Plan (1) E-coli UTI Status: Acute (2) MRSA (methicillin resistant staph aureus) culture positive Status: Acute (3) Cystitis Status: Resolved (4) Hematuria Status: Resolved (5) Hematoma Status: Resolved (6) Abdominal pain Status: Resolved (7) Hydronephrosis Status: Acute (8) KERRIE (acute kidney injury) Status: Chronic (9) Hypokalemia Status: Acute (10) Hyperglycemia Status: Acute (11) Type 2 diabetes mellitus Status: Chronic (12) HTN (hypertension) Status: Chronic (13) Dementia Status: Chronic (14) Infection of PEG site Status: Acute (15) Feeding by G-tube Status: Chronic
--- NOTE | 2018-04-13 15:28 | CP.PCM.PN ---
Subjective - Date & Time of Evaluation Date of Evaluation: 04/13/18 - Subjective Subjective: F/U Hematuria Pt awake, non verbal. as per nurse noticed with A Fib in AM on telemonitor. Objective - Vital Signs/Intake and Output Vital Signs (last 24 hours): Temp Pulse Resp BP Pulse Ox 97.2 F L 94 H 20 99/58 L 96 04/13/18 13:00 04/13/18 14:08 04/13/18 13:00 04/13/18 14:08 04/13/18 13:00 - Medications Medications: Current Medications Ascorbic Acid (Vitamin C 500 Mg Tab) 500 mg GT DAILY [facility] Last Admin: 04/13/18 09:48 Dose: 500 mg Atorvastatin Calcium (Lipitor) 10 mg GT HS [facility] Last Admin: 04/12/18 21:23 Dose: 10 mg Diphenhydramine HCl (Benadryl) 50 mg PO Q8H PRN PRN Reason: Allergy symptoms Donepezil HCl (Aricept) 10 mg GT HS [facility] Last Admin: 04/12/18 21:23 Dose: 10 mg Meropenem 1 gm/ Sodium (Chloride) 100 mls @ 100 mls/hr IVPB Q8 [facility]; Protocol Last Admin: 04/13/18 09:49 Dose: 100 mls/hr Insulin Human Lispro (Humalog) 0 units SC ACCU-CHECK [facility]; Protocol Last Admin: 04/13/18 14:09 Dose: 3 units Losartan Potassium (Cozaar) 100 mg GT DAILY [facility] Last Admin: 04/13/18 09:48 Dose: Not Given Memantine (Namenda) 10 mg GT HS [facility] Last Admin: 04/12/18 21:37 Dose: 10 mg Metoprolol Tartrate (Lopressor) 12.5 mg PO Q12 [facility] Last Admin: 04/13/18 14:08 Dose: 12.5 mg Multivitamins/Vitamin C (Multi-Delyn Liquid) 15 ml GT DAILY [facility] Last Admin: 04/13/18 09:50 Dose: 15 ml Mupirocin (Bactroban Ointment) 1 applic TOP BID [facility] Last Admin: 04/13/18 09:48 Dose: 1 applic Nystatin (Nystop Topical Powder) 1 applic TOP QSHIFT [facility] Last Admin: 04/13/18 14:12 Dose: 1 applic Potassium Chloride (Potassium Chloride Oral Soln) 20 meq NG DAILY [facility] Last Admin: 04/13/18 09:48 Dose: 20 meq - Labs Labs: 04/13/18 06:26 04/13/18 06:26 PT 12.2 Seconds (9.8-13.1) 04/06/18 10:42 INR 1.1 04/06/18 10:42 APTT 25.8 Seconds (25.6-37.1) 04/06/18 10:42 - Constitutional Appears: No Acute Distress - Head Exam Head Exam: NORMAL INSPECTION - Eye Exam Eye Exam: PERRL - ENT Exam Additional comments: Hard of hearing - Neck Exam Neck Exam: Normal Inspection - Respiratory Exam Respiratory Exam: NORMAL BREATHING PATTERN - Cardiovascular Exam Cardiovascular Exam: REGULAR RHYTHM, Murmur (systolic 1/6 LSB [place]) - GI/Abdominal Exam GI & Abdominal Exam: Soft, Normal Bowel Sounds Additional comments: Erythema around Peg tube. - Extremities Exam Additional comments: Ecchymosis R anterior shoulder - Back Exam Additional comments: Erythema sacral area - Neurological Exam Neurological Exam: Awake Additional comments: Non verbal, generalized weakness, unable to walk. - Skin Skin Exam: Warm Assessment and Plan (1) E-coli UTI Status: Acute (2) MRSA (methicillin resistant staph aureus) culture positive Status: Acute (3) Cystitis Status: Resolved (4) Hematuria Status: Resolved (5) Hematoma Status: Resolved (6) Abdominal pain Status: Resolved (7) Hydronephrosis Status: Acute (8) KERRIE (acute kidney injury) Status: Chronic (9) Hypokalemia Status: Acute (10) Hyperglycemia Status: Acute (11) Type 2 diabetes mellitus Status: Chronic (12) HTN (hypertension) Status: Chronic (13) Dementia Status: Chronic (14) Infection of PEG site Status: Acute (15) Feeding by G-tube Status: Chronic - Assessment and Plan (Free Text) Plan: EKG stat was ordered, F/U Echo, Cardiac consult with Dr. Jaramillo. Potassium level 2.7, continue with Potassium replacement and rest of Tx.
--- NOTE | 2018-04-13 17:14 | CP.PCM.CON ---
History of Present Illness - History of Present Illness History of Present Illness: Consultation for evaluation of ? afib HPI: Past Patient History - Infectious Disease Hx of Infectious Diseases: None - Tetanus Immunizations Tetanus Immunization: Unknown - Past Medical History & Family History Past Medical History?: Yes - Past Social History Smoking Status: Never Smoked Alcohol: None Drugs: Denies Home Situation {Lives}: Senior Living - CARDIAC Hx Cardiac Disorders: Yes Hx Hypercholesterolemia: Yes Hx Hypertension: Yes - PULMONARY Hx Respiratory Disorders: No - NEUROLOGICAL Hx Neurological Disorder: Yes Hx Alzheimer's Disease: Yes Hx Dementia: Yes - HEENT Hx HEENT Problems: Yes (Hard of hearing) - RENAL Hx Chronic Kidney Disease: Yes Other/Comment: renal cyst - ENDOCRINE/METABOLIC Hx Endocrine Disorders: Yes Hx Diabetes Mellitus Type 2: Yes - HEMATOLOGICAL/ONCOLOGICAL Hx Blood Disorders: Yes Hx AIDS: No Hx Cancer: Yes (Breast) Hx Human Immunodeficiency Virus (HIV): No - INTEGUMENTARY Hx Dermatological Problems: Yes Hx Cellulitis: Yes Other/Comment: Sacral ulcer - MUSCULOSKELETAL/RHEUMATOLOGICAL Hx Musculoskeletal Disorders: Yes Hx Falls: Yes Hx Unsteady Gait: Yes - GASTROINTESTINAL Hx Gastrointestinal Disorders: Yes Other/Comment: Peg tube - GENITOURINARY/GYNECOLOGICAL Hx Genitourinary Disorders: Yes (Urinary retention and mehta catheter.) Hx Hematuria: Yes Hx Urinary Tract Infection: Yes - PSYCHIATRIC Hx Psychophysiologic Disorder: Yes Hx Anxiety: Yes Hx Depression: Yes Hx Substance Use: No - SURGICAL HISTORY Hx Surgeries: Yes Hx Mastectomy: Yes Other/Comment: Mastectomy-Breast cancer. - ANESTHESIA Hx Anesthesia: Yes (reviewed from ut papers.) Hx Anesthesia Reactions: No Meds Allergies/Adverse Reactions: Allergies Allergy/AdvReac Type Severity Reaction Status Date / Time Penicillins Allergy UNKNOWN Verified 04/06/18 10:05 - Medications Medications: Current Medications Ascorbic Acid (Vitamin C 500 Mg Tab) 500 mg GT DAILY [facility] Last Admin: 04/13/18 09:48 Dose: 500 mg Atorvastatin Calcium (Lipitor) 10 mg GT HS [facility] Last Admin: 04/12/18 21:23 Dose: 10 mg Diphenhydramine HCl (Benadryl) 50 mg PO Q8H PRN PRN Reason: Allergy symptoms Donepezil HCl (Aricept) 10 mg GT HS [facility] Last Admin: 04/12/18 21:23 Dose: 10 mg Meropenem 1 gm/ Sodium (Chloride) 100 mls @ 100 mls/hr IVPB Q8 [facility]; Protocol Last Admin: 04/13/18 09:49 Dose: 100 mls/hr Insulin Human Lispro (Humalog) 0 units SC ACCU-CHECK [facility]; Protocol Last Admin: 04/13/18 14:09 Dose: 3 units Losartan Potassium (Cozaar) 100 mg GT DAILY [facility] Last Admin: 04/13/18 09:48 Dose: Not Given Memantine (Namenda) 10 mg GT HS [facility] Last Admin: 04/12/18 21:37 Dose: 10 mg Metoprolol Tartrate (Lopressor) 12.5 mg PO Q12 [facility] Last Admin: 04/13/18 14:08 Dose: 12.5 mg Multivitamins/Vitamin C (Multi-Delyn Liquid) 15 ml GT DAILY [facility] Last Admin: 04/13/18 09:50 Dose: 15 ml Mupirocin (Bactroban Ointment) 1 applic TOP BID [facility] Last Admin: 04/13/18 09:48 Dose: 1 applic Nystatin (Nystop Topical Powder) 1 applic TOP QSHIFT [facility] Last Admin: 04/13/18 14:12 Dose: 1 applic Potassium Chloride (Potassium Chloride Oral Soln) 20 meq NG DAILY [facility] Last Admin: 04/13/18 09:48 Dose: 20 meq Results - Vital Signs Recent Vital Signs: Last Vital Signs Temp 98.3 F 04/13/18 16:38 Pulse 84 04/13/18 16:38 Resp 20 04/13/18 16:38 BP 103/62 04/13/18 16:38 Pulse Ox 97 04/13/18 16:38 - Labs Result Diagrams: 04/13/18 06:26 04/13/18 06:26 Labs: Laboratory Results - last 24 hr 04/10/18 04/11/18 04/11/18 21:48 05:21 11:13 WBC RBC Hgb Hct MCV MCH MCHC RDW Plt Count MPV Neut % (Auto) Lymph % (Auto) [place] % (Auto) Eos % (Auto) Baso % (Auto) Neut # (Auto) Lymph # (Auto) [place] # (Auto) Eos # (Auto) Baso # (Auto) Sodium Potassium Chloride Carbon Dioxide Anion Gap BUN Creatinine Est GFR ( Amer) Est GFR (Non-Af Amer) POC Glucose (mg/dL) 145 H 160 H 167 H Random Glucose Calcium Total Bilirubin AST ALT Alkaline Phosphatase Troponin I Total Protein Albumin Globulin Albumin/Globulin Ratio C. difficile Ag & Toxin 04/11/18 04/11/18 04/12/18 15:33 21:40 05:39 WBC RBC Hgb Hct MCV MCH MCHC RDW Plt Count MPV Neut % (Auto) Lymph % (Auto) [place] % (Auto) Eos % (Auto) Baso % (Auto) Neut # (Auto) Lymph # (Auto) [place] # (Auto) Eos # (Auto) Baso # (Auto) Sodium Potassium Chloride Carbon Dioxide Anion Gap BUN Creatinine Est GFR ( Amer) Est GFR (Non-Af Amer) POC Glucose (mg/dL) 161 H 117 H 157 H Random Glucose Calcium Total Bilirubin AST ALT Alkaline Phosphatase Troponin I Total Protein Albumin Globulin Albumin/Globulin Ratio C. difficile Ag & Toxin 04/12/18 04/12/18 04/12/18 11:55 16:59 20:30 WBC RBC Hgb Hct MCV MCH MCHC RDW Plt Count MPV Neut % (Auto) Lymph % (Auto) [place] % (Auto) Eos % (Auto) Baso % (Auto) Neut # (Auto) Lymph # (Auto) [place] # (Auto) Eos # (Auto) Baso # (Auto) Sodium Potassium Chloride Carbon Dioxide Anion Gap BUN Creatinine Est GFR ( Amer) Est GFR (Non-Af Amer) POC Glucose (mg/dL) 227 H 127 H Random Glucose Calcium Total Bilirubin AST ALT Alkaline Phosphatase Troponin I 0.0130 Total Protein Albumin Globulin Albumin/Globulin Ratio C. difficile Ag & Toxin 04/12/18 04/13/18 04/13/18 21:06 05:46 06:26 WBC RBC Hgb Hct MCV MCH MCHC RDW Plt Count MPV Neut % (Auto) Lymph % (Auto) [place] % (Auto) Eos % (Auto) Baso % (Auto) Neut # (Auto) Lymph # (Auto) [place] # (Auto) Eos # (Auto) Baso # (Auto) Sodium 136 Potassium 3.5 L Chloride 97 L Carbon Dioxide 29 Anion Gap 14 BUN 17 Creatinine 0.3 L Est GFR ( Amer) > 60 Est GFR (Non-Af Amer) > 60 POC Glucose (mg/dL) 139 H 167 H Random Glucose 158 H Calcium 7.4 L Total Bilirubin 0.3 AST 155 H ALT 108 H D Alkaline Phosphatase 201 H D Troponin I Total Protein 5.6 L Albumin 2.6 L Globulin 3.1 Albumin/Globulin Ratio 0.8 L C. difficile Ag & Toxin 04/13/18 04/13/18 04/13/18 06:26 11:20 11:50 WBC 8.7 RBC 3.57 L Hgb 10.6 L Hct 30.7 L MCV 85.9 MCH 29.7 MCHC 34.5 RDW 13.8 Plt Count 193 MPV 9.5 Neut % (Auto) 70.9 Lymph % (Auto) 14.8 L [place] % (Auto) 11.5 H Eos % (Auto) 2.4 Baso % (Auto) 0.4 Neut # (Auto) 6.2 Lymph # (Auto) 1.3 [place] # (Auto) 1.0 H Eos # (Auto) 0.2 Baso # (Auto) 0.0 Sodium Potassium Chloride Carbon Dioxide Anion Gap BUN Creatinine Est GFR ( Amer) Est GFR (Non-Af Amer) POC Glucose (mg/dL) 217 H Random Glucose Calcium Total Bilirubin AST ALT Alkaline Phosphatase Troponin I Total Protein Albumin Globulin Albumin/Globulin Ratio C. difficile Ag & Toxin Negative 04/13/18 16:23 WBC RBC Hgb Hct MCV MCH MCHC RDW Plt Count MPV Neut % (Auto) Lymph % (Auto) [place] % (Auto) Eos % (Auto) Baso % (Auto) Neut # (Auto) Lymph # (Auto) [place] # (Auto) Eos # (Auto) Baso # (Auto) Sodium Potassium Chloride Carbon Dioxide Anion Gap BUN Creatinine Est GFR ( Amer) Est GFR (Non-Af Amer) POC Glucose (mg/dL) 157 H Random Glucose Calcium Total Bilirubin AST ALT Alkaline Phosphatase Troponin I Total Protein Albumin Globulin Albumin/Globulin Ratio C. difficile Ag & Toxin
--- NOTE | 2018-04-13 17:21 | CP.PCM.CON ---
History of Present Illness - History of Present Illness History of Present Illness: Consultation for evaluation of irregular heart rhythm HPI: 87-year-old female with past medical history significant for diabetes mellitus dementia chronic kidney disease who was transferred from shelter due to hematuria. At baseline patient has dementia and is unable to provide any meaningful information review of the chart shows that she was noted to have a regular rate in her heart rhythm over the weekend and by and was noted by nursing staff to be in atrial fibrillation EKG was ordered by Dr. Bean echocardiogram was done [facility] shows her to have sinus rhythm with significant heavy burden of PACs at baseline she is DNI DNR. Review of Systems - Review of Systems Systems not reviewed;Unavailable: Acuity of Condition - Constitutional Constitutional: As Per HPI - EENT Eyes: As Per HPI Ears: As Per HPI Nose/Mouth/Throat: As Per HPI - Breasts Breasts: As Per HPI - Cardiovascular Cardiovascular: As Per HPI - Respiratory Respiratory: As Per HPI - Gastrointestinal Gastrointestinal: As Per HPI - Genitourinary Genitourinary: As Per HPI - Reproductive: Female Reproductive:Female: As Per HPI - Menstruation Menstruation: As Per HPI - Musculoskeletal Musculoskeletal: As Per HPI - Integumentary Integumentary: As Per HPI - Neurological Neurological: As Per HPI - Psychiatric Psychiatric: As Per HPI - Endocrine Endocrine: As Per HPI - Hematologic/Lymphatic Hematologic: As Per HPI Past Patient History - Infectious Disease Hx of Infectious Diseases: None - Tetanus Immunizations Tetanus Immunization: Unknown - Past Medical History & Family History Past Medical History?: Yes - Past Social History Smoking Status: Never Smoked Alcohol: None Drugs: Denies Home Situation {Lives}: Penitentiary - CARDIAC Hx Cardiac Disorders: Yes Hx Hypercholesterolemia: Yes Hx Hypertension: Yes - PULMONARY Hx Respiratory Disorders: No - NEUROLOGICAL Hx Neurological Disorder: Yes Hx Alzheimer's Disease: Yes Hx Dementia: Yes - HEENT Hx HEENT Problems: Yes (Hard of hearing) - RENAL Hx Chronic Kidney Disease: Yes Other/Comment: renal cyst - ENDOCRINE/METABOLIC Hx Endocrine Disorders: Yes Hx Diabetes Mellitus Type 2: Yes - HEMATOLOGICAL/ONCOLOGICAL Hx Blood Disorders: Yes Hx AIDS: No Hx Cancer: Yes (Breast) Hx Human Immunodeficiency Virus (HIV): No - INTEGUMENTARY Hx Dermatological Problems: Yes Hx Cellulitis: Yes Other/Comment: Sacral ulcer - MUSCULOSKELETAL/RHEUMATOLOGICAL Hx Musculoskeletal Disorders: Yes Hx Falls: Yes Hx Unsteady Gait: Yes - GASTROINTESTINAL Hx Gastrointestinal Disorders: Yes Other/Comment: Peg tube - GENITOURINARY/GYNECOLOGICAL Hx Genitourinary Disorders: Yes (Urinary retention and mehta catheter.) Hx Hematuria: Yes Hx Urinary Tract Infection: Yes - PSYCHIATRIC Hx Psychophysiologic Disorder: Yes Hx Anxiety: Yes Hx Depression: Yes Hx Substance Use: No - SURGICAL HISTORY Hx Surgeries: Yes Hx Mastectomy: Yes Other/Comment: Mastectomy-Breast cancer. - ANESTHESIA Hx Anesthesia: Yes (reviewed from [place] papers.) Hx Anesthesia Reactions: No Meds Allergies/Adverse Reactions: Allergies Allergy/AdvReac Type Severity Reaction Status Date / Time Penicillins Allergy UNKNOWN Verified 04/06/18 10:05 - Medications Medications: Current Medications Ascorbic Acid (Vitamin C 500 Mg Tab) 500 mg GT DAILY [facility] Last Admin: 04/13/18 09:48 Dose: 500 mg Atorvastatin Calcium (Lipitor) 10 mg GT HS [facility] Last Admin: 04/12/18 21:23 Dose: 10 mg Diphenhydramine HCl (Benadryl) 50 mg PO Q8H PRN PRN Reason: Allergy symptoms Donepezil HCl (Aricept) 10 mg GT HS [facility] Last Admin: 04/12/18 21:23 Dose: 10 mg Meropenem 1 gm/ Sodium (Chloride) 100 mls @ 100 mls/hr IVPB Q8 [facility]; Protocol Last Admin: 04/13/18 09:49 Dose: 100 mls/hr Insulin Human Lispro (Humalog) 0 units SC ACCU-CHECK [facility]; Protocol Last Admin: 04/13/18 14:09 Dose: 3 units Losartan Potassium (Cozaar) 100 mg GT DAILY [facility] Last Admin: 04/13/18 09:48 Dose: Not Given Memantine (Namenda) 10 mg GT HS [facility] Last Admin: 04/12/18 21:37 Dose: 10 mg Metoprolol Tartrate (Lopressor) 12.5 mg PO Q12 [facility] Last Admin: 04/13/18 14:08 Dose: 12.5 mg Multivitamins/Vitamin C (Multi-Delyn Liquid) 15 ml GT DAILY [facility] Last Admin: 04/13/18 09:50 Dose: 15 ml Mupirocin (Bactroban Ointment) 1 applic TOP BID [facility] Last Admin: 04/13/18 09:48 Dose: 1 applic Nystatin (Nystop Topical Powder) 1 applic TOP QSHIFT [facility] Last Admin: 04/13/18 14:12 Dose: 1 applic Potassium Chloride (Potassium Chloride Oral Soln) 20 meq NG DAILY [facility] Last Admin: 04/13/18 09:48 Dose: 20 meq Physical Exam - Constitutional Appears: Well - Head Exam Head Exam: ATRAUMATIC, NORMAL INSPECTION, NORMOCEPHALIC - Eye Exam Eye Exam: EOMI, Normal appearance, PERRL Pupil Exam: NORMAL ACCOMODATION, PERRL - ENT Exam ENT Exam: Mucous Membranes Moist, Normal Exam - Neck Exam Neck exam: Positive for: Normal Inspection - Respiratory Exam Respiratory Exam: Clear to Auscultation Bilateral, NORMAL BREATHING PATTERN - Cardiovascular Exam Cardiovascular Exam: Irregular Rhythm, +S1, +S2, Systolic Murmur - GI/Abdominal Exam GI & Abdominal Exam: Normal Bowel Sounds, Soft. absent: Tenderness - Extremities Exam Extremities exam: Positive for: normal inspection - Back Exam Back exam: NORMAL INSPECTION - Neurological Exam Neurological exam: Alert, Oriented x3, Reflexes Normal - Psychiatric Exam Psychiatric exam: Normal Affect, Normal Mood - Skin Skin Exam: Dry, Intact, Normal Color, Warm Results - Vital Signs Recent Vital Signs: Last Vital Signs Temp 98.3 F 04/13/18 16:38 Pulse 84 04/13/18 16:38 Resp 20 04/13/18 16:38 BP 103/62 04/13/18 16:38 Pulse Ox 97 04/13/18 16:38 - Labs Result Diagrams: 04/13/18 06:26 04/13/18 06:26 Labs: Laboratory Results - last 24 hr 04/10/18 04/11/18 04/11/18 21:48 05:21 11:13 WBC RBC Hgb Hct MCV MCH MCHC RDW Plt Count MPV Neut % (Auto) Lymph % (Auto) [place] % (Auto) Eos % (Auto) Baso % (Auto) Neut # (Auto) Lymph # (Auto) [place] # (Auto) Eos # (Auto) Baso # (Auto) Sodium Potassium Chloride Carbon Dioxide Anion Gap BUN Creatinine Est GFR ( Amer) Est GFR (Non-Af Amer) POC Glucose (mg/dL) 145 H 160 H 167 H Random Glucose Calcium Total Bilirubin AST ALT Alkaline Phosphatase Troponin I Total Protein Albumin Globulin Albumin/Globulin Ratio C. difficile Ag & Toxin 04/11/18 04/11/18 04/12/18 15:33 21:40 05:39 WBC RBC Hgb Hct MCV MCH MCHC RDW Plt Count MPV Neut % (Auto) Lymph % (Auto) [place] % (Auto) Eos % (Auto) Baso % (Auto) Neut # (Auto) Lymph # (Auto) [place] # (Auto) Eos # (Auto) Baso # (Auto) Sodium Potassium Chloride Carbon Dioxide Anion Gap BUN Creatinine Est GFR ( Amer) Est GFR (Non-Af Amer) POC Glucose (mg/dL) 161 H 117 H 157 H Random Glucose Calcium Total Bilirubin AST ALT Alkaline Phosphatase Troponin I Total Protein Albumin Globulin Albumin/Globulin Ratio C. difficile Ag & Toxin 04/12/18 04/12/18 04/12/18 11:55 16:59 20:30 WBC RBC Hgb Hct MCV MCH MCHC RDW Plt Count MPV Neut % (Auto) Lymph % (Auto) [place] % (Auto) Eos % (Auto) Baso % (Auto) Neut # (Auto) Lymph # (Auto) [place] # (Auto) Eos # (Auto) Baso # (Auto) Sodium Potassium Chloride Carbon Dioxide Anion Gap BUN Creatinine Est GFR ( Amer) Est GFR (Non-Af Amer) POC Glucose (mg/dL) 227 H 127 H Random Glucose Calcium Total Bilirubin AST ALT Alkaline Phosphatase Troponin I 0.0130 Total Protein Albumin Globulin Albumin/Globulin Ratio C. difficile Ag & Toxin 04/12/18 04/13/18 04/13/18 21:06 05:46 06:26 WBC RBC Hgb Hct MCV MCH MCHC RDW Plt Count MPV Neut % (Auto) Lymph % (Auto) [place] % (Auto) Eos % (Auto) Baso % (Auto) Neut # (Auto) Lymph # (Auto) [place] # (Auto) Eos # (Auto) Baso # (Auto) Sodium 136 Potassium 3.5 L Chloride 97 L Carbon Dioxide 29 Anion Gap 14 BUN 17 Creatinine 0.3 L Est GFR ( Amer) > 60 Est GFR (Non-Af Amer) > 60 POC Glucose (mg/dL) 139 H 167 H Random Glucose 158 H Calcium 7.4 L Total Bilirubin 0.3 AST 155 H ALT 108 H D Alkaline Phosphatase 201 H D Troponin I Total Protein 5.6 L Albumin 2.6 L Globulin 3.1 Albumin/Globulin Ratio 0.8 L C. difficile Ag & Toxin 04/13/18 04/13/18 04/13/18 06:26 11:20 11:50 WBC 8.7 RBC 3.57 L Hgb 10.6 L Hct 30.7 L MCV 85.9 MCH 29.7 MCHC 34.5 RDW 13.8 Plt Count 193 MPV 9.5 Neut % (Auto) 70.9 Lymph % (Auto) 14.8 L [place] % (Auto) 11.5 H Eos % (Auto) 2.4 Baso % (Auto) 0.4 Neut # (Auto) 6.2 Lymph # (Auto) 1.3 [place] # (Auto) 1.0 H Eos # (Auto) 0.2 Baso # (Auto) 0.0 Sodium Potassium Chloride Carbon Dioxide Anion Gap BUN Creatinine Est GFR ( Amer) Est GFR (Non-Af Amer) POC Glucose (mg/dL) 217 H Random Glucose Calcium Total Bilirubin AST ALT Alkaline Phosphatase Troponin I Total Protein Albumin Globulin Albumin/Globulin Ratio C. difficile Ag & Toxin Negative 04/13/18 16:23 WBC RBC Hgb Hct MCV MCH MCHC RDW Plt Count MPV Neut % (Auto) Lymph % (Auto) [place] % (Auto) Eos % (Auto) Baso % (Auto) Neut # (Auto) Lymph # (Auto) [place] # (Auto) Eos # (Auto) Baso # (Auto) Sodium Potassium Chloride Carbon Dioxide Anion Gap BUN Creatinine Est GFR ( Amer) Est GFR (Non-Af Amer) POC Glucose (mg/dL) 157 H Random Glucose Calcium Total Bilirubin AST ALT Alkaline Phosphatase Troponin I Total Protein Albumin Globulin Albumin/Globulin Ratio C. difficile Ag & Toxin Assessment & Plan (1) Arrhythmia Assessment and Plan: telemetry and EKG strips reviewed - high PAC burden with no evidence of afib echo reviewed - grossly normal LVEF etiology 2' to possible cystitis causing hyperadrenergic state low dose BB pain control pyridium for bladder discomfort Status: Acute (2) HTN (hypertension) Assessment and Plan: cont losartan and metoprolol Status: Chronic Priority: High (3) Abdominal pain Status: Resolved Priority: High (4) Cystitis Status: Resolved (5) High cholesterol Assessment and Plan: statins Status: Chronic Priority: Low (6) Urinary retention Status: Chronic Priority: Medium
--- NOTE | 2018-04-13 18:08 | CARD ---
APPROVED REPORT Date of service: 04/13/2018 EXAM: Two-dimensional and M-mode echocardiogram with Doppler and color Doppler. Other Information Quality : PoorRhythm : NSR Technically limited study due to Pt refused to have test done. INDICATION Abnormal EKG/Arrhythmia 2D DIMENSIONS IVSd1.37 (0.7-1.1cm)LVDd1.92 (3.9-5.9cm) PWd1.44 (0.7-1.1cm)IVSs1.48 (0.8-1.2cm) LVDs1.78 (2.5-4.0cm)FS (%) 7.5 % PWs1.41 (0.8-1.2cm) Mitral Valve E/A ratio0.0 TDI E/Lateral E'0.0E/Medial E'0.0 LEFT VENTRICLE The left ventricle is normal size. There is mild concentric left ventricular hypertrophy. The left ventricular systolic function is normal. The estimated ejection fraction is 60-65% No regional wall motion abnormalities noted.. The left ventricular diastolic function was not completely assessed. No left ventricle thrombus noted on this study. There is no ventricular septal defect visualized. There is no left ventricular aneurysm. There is no mass noted in the left ventricle. RIGHT VENTRICLE The right ventricle is normal size. There is normal right ventricular wall thickness. The right ventricular systolic function is normal. ATRIA The left atrium size is normal. The right atrium size is normal. AORTIC VALVE The aortic valve is normal in structure. No aortic regurgitation is present. There is no aortic valvular stenosis. There is no aortic valvular vegetation. MITRAL VALVE The mitral valve is normal in structure. There is no evidence of mitral valve prolapse. There is no mitral valve stenosis. There is no mitral valve regurgitation noted. TRICUSPID VALVE The tricuspid valve is normal in structure. There is no tricuspid valve regurgitation noted. PULMONIC VALVE Not assessed Not assessed GREAT VESSELS The aortic root is normal in size. The ascending aorta is normal in size. Not assessed PERICARDIAL EFFUSION There is no pericardial effusion. There is no pleural effusion. <Conclusion> Limited echo as patient was not cooperative. The estimated ejection fraction is 60-65% There is mild concentric left ventricular hypertrophy. The left ventricular diastolic function was not completely assessed.
[2018-04-14] MEDS: Meropenem 1 GM in Sodium Chloride 0.9% 100 ML IVPB SCH ×2 (00:34→09:22)
[2018-04-14] MEDS: Insulin Lispro (humaLOG) 100 Units/ml Inj SC SCH (08:57)
[2018-04-14 09:01] LABS: ALB/GLOB RATIO 0.9 (1.0-2.1); ALBUMIN 2.7 g/dL (3.5-5.0); ALT/SGPT 76 U/L (9-52); AST/SGOT 72 U/L (14-36); BLOOD UREA NITROGEN 12 mg/dl (7-17); CALCIUM 7.8 mg/dL (8.4-10.2); GFR NON-AFRICAN AMERICAN > 60
[2018-04-14] MEDS ORDERED: Potassium Chloride 20 mEq/15 ml LIQ UD PEG ONE (09:05)
[2018-04-14] MEDS ORDERED: Potassium Chloride 20 mEq/15 ml LIQ UD PO ONE (09:05)
[2018-04-14] MEDS: Multi Vitamins 15 mL UD Oral Solution GT SCH (09:16)
[2018-04-14] MEDS: Potassium Chloride 20 mEq/15 ml LIQ UD NG SCH (09:22)
--- NOTE | 2018-04-14 09:55 | CP.PCM.PN ---
Subjective - Date & Time of Evaluation Date of Evaluation: 04/14/18 Time of Evaluation: 09:52 - Subjective Subjective: no overnight events Objective - Vital Signs/Intake and Output Vital Signs (last 24 hours): Temp Pulse Resp BP Pulse Ox 97.4 F L 73 18 105/74 96 04/14/18 08:30 04/14/18 08:30 04/14/18 08:30 04/14/18 08:30 04/14/18 08:30 - Medications Medications: Current Medications Ascorbic Acid (Vitamin C 500 Mg Tab) 500 mg GT DAILY [facility] Last Admin: 04/14/18 09:21 Dose: 500 mg Atorvastatin Calcium (Lipitor) 10 mg GT HS [facility] Last Admin: 04/13/18 22:08 Dose: 10 mg Diphenhydramine HCl (Benadryl) 50 mg PO Q8H PRN PRN Reason: Allergy symptoms Last Admin: 04/14/18 00:41 Dose: 50 mg Donepezil HCl (Aricept) 10 mg GT HS [facility] Last Admin: 04/13/18 22:09 Dose: 10 mg Meropenem 1 gm/ Sodium (Chloride) 100 mls @ 100 mls/hr IVPB Q8 [facility]; Protocol Last Admin: 04/14/18 09:22 Dose: 100 mls/hr Insulin Human Lispro (Humalog) 0 units SC ACCU-CHECK [facility]; Protocol Last Admin: 04/14/18 08:57 Dose: Not Given Losartan Potassium (Cozaar) 100 mg GT DAILY [facility] Last Admin: 04/14/18 09:23 Dose: 100 mg Memantine (Namenda) 10 mg GT HS [facility] Last Admin: 04/13/18 22:06 Dose: 10 mg Metoprolol Tartrate (Lopressor) 12.5 mg PO Q12 [facility] Last Admin: 04/13/18 22:09 Dose: Not Given Multivitamins/Vitamin C (Multi-Delyn Liquid) 15 ml GT DAILY [facility] Last Admin: 04/14/18 09:16 Dose: 15 ml Mupirocin (Bactroban Ointment) 1 applic TOP BID [facility] Last Admin: 04/14/18 09:23 Dose: 1 applic Nystatin (Nystop Topical Powder) 1 applic TOP QSHIFT [facility] Last Admin: 04/13/18 14:12 Dose: 1 applic Phenazopyridine HCl (Pyridium) 200 mg PEG BID [facility] Stop: 11/02/18 23:59 Last Admin: 04/14/18 09:20 Dose: 200 mg Potassium Chloride (Potassium Chloride Oral Soln) 20 meq NG DAILY [facility] Last Admin: 04/14/18 09:22 Dose: 20 meq - Labs Labs: 04/13/18 06:26 04/14/18 08:18 PT 12.2 Seconds (9.8-13.1) 04/06/18 10:42 INR 1.1 04/06/18 10:42 APTT 25.8 Seconds (25.6-37.1) 04/06/18 10:42 - Head Exam Head Exam: NORMOCEPHALIC - Neck Exam Neck Exam: Normal Inspection - Respiratory Exam Respiratory Exam: Clear to Ausculation Bilateral, NORMAL BREATHING PATTERN - Cardiovascular Exam Cardiovascular Exam: REGULAR RHYTHM - GI/Abdominal Exam GI & Abdominal Exam: Soft, Normal Bowel Sounds Assessment and Plan - Assessment and Plan (Free Text) Assessment: 87 yo female with PEG tube doing well dc planning
--- NOTE | 2018-04-14 10:53 | CP.PCM.PN ---
Subjective - Date & Time of Evaluation Date of Evaluation: 04/14/18 Time of Evaluation: 09:00 - Subjective Subjective: LFT's coming down Objective - Vital Signs/Intake and Output Vital Signs (last 24 hours): Temp Pulse Resp BP Pulse Ox 97.4 F L 73 18 105/74 96 04/14/18 08:30 04/14/18 09:52 04/14/18 08:30 04/14/18 09:52 04/14/18 08:30 - Medications Medications: Current Medications Ascorbic Acid (Vitamin C 500 Mg Tab) 500 mg GT DAILY [facility] Last Admin: 04/14/18 09:21 Dose: 500 mg Atorvastatin Calcium (Lipitor) 10 mg GT HS [facility] Last Admin: 04/13/18 22:08 Dose: 10 mg Diphenhydramine HCl (Benadryl) 50 mg PO Q8H PRN PRN Reason: Allergy symptoms Last Admin: 04/14/18 00:41 Dose: 50 mg Donepezil HCl (Aricept) 10 mg GT HS [facility] Last Admin: 04/13/18 22:09 Dose: 10 mg Meropenem 1 gm/ Sodium (Chloride) 100 mls @ 100 mls/hr IVPB Q8 [facility]; Protocol Last Admin: 04/14/18 09:22 Dose: 100 mls/hr Insulin Human Lispro (Humalog) 0 units SC ACCU-CHECK [facility]; Protocol Last Admin: 04/14/18 08:57 Dose: Not Given Losartan Potassium (Cozaar) 100 mg GT DAILY [facility] Last Admin: 04/14/18 09:23 Dose: 100 mg Memantine (Namenda) 10 mg GT HS [facility] Last Admin: 04/13/18 22:06 Dose: 10 mg Metoprolol Tartrate (Lopressor) 12.5 mg PO Q12 [facility] Last Admin: 04/14/18 09:52 Dose: Not Given Multivitamins/Vitamin C (Multi-Delyn Liquid) 15 ml GT DAILY [facility] Last Admin: 04/14/18 09:16 Dose: 15 ml Mupirocin (Bactroban Ointment) 1 applic TOP BID [facility] Last Admin: 04/14/18 09:23 Dose: 1 applic Nystatin (Nystop Topical Powder) 1 applic TOP QSHIFT [facility] Last Admin: 04/13/18 14:12 Dose: 1 applic Phenazopyridine HCl (Pyridium) 200 mg PEG BID [facility] Stop: 04/17/18 23:59 Last Admin: 04/14/18 09:20 Dose: 200 mg Potassium Chloride (Potassium Chloride Oral Soln) 20 meq NG DAILY [facility] Last Admin: 04/14/18 09:22 Dose: 20 meq - Labs Labs: 04/13/18 06:26 04/14/18 08:18 PT 12.2 Seconds (9.8-13.1) 04/06/18 10:42 INR 1.1 04/06/18 10:42 APTT 25.8 Seconds (25.6-37.1) 04/06/18 10:42 Assessment and Plan (1) Abdominal pain Status: Resolved (2) Hematuria Status: Resolved (3) Hydronephrosis Status: Acute (4) ESBL (extended spectrum beta-lactamase) producing bacteria infection Status: Deleted (5) MRSA (methicillin resistant staph aureus) culture positive Status: Acute
[2018-04-14 12:22] VITALS: BP 105/74; PULSE 73; RESP 18; TEMP 97.4; O2SAT 96
--- NOTE | 2018-04-14 20:42 | CON ---
DATE: 04/14/2018 REFERRING PHYSICIAN: Broderick Bean MD REASON FOR CONSULTATION: Questionable leaky PEG tube. HISTORY OF PRESENT ILLNESS: This is an 87-year-old female with a history of dementia, diabetes, CKD hematuria GI was called for leaky feeding tube. The patient is demented at baseline, lying in bed comfortably, in no apparent distress. PAST MEDICAL HISTORY: As above. PAST SURGICAL HISTORY: As above. MEDICATIONS: Have been reviewed. REVIEW OF SYSTEMS: Unable to obtain. PHYSICAL EXAMINATION: GENERAL: This is a pleasant elderly-appearing female, lying in bed comfortably, in no apparent distress. VITAL SIGNS: Here in the hospital are grossly unremarkable. HEENT: Head: Normocephalic and atraumatic. Eyes: Pupils are equally reactive to light bilaterally. No conjunctival pallor or icterus. NECK: Supple. Normal range of motion. No lymphadenopathy appreciated. LUNGS: Coarse breath sounds bilaterally. HEART: S1 and S2. Regular rate and rhythm. No murmurs appreciated. ABDOMEN: Soft and nontender. Bowel sounds present. No leakage of feeds around the site. No rebound. No guarding. RECTAL: Deferred. EXTREMITIES: Pulses felt bilaterally. SKIN: Warm, dry and intact. NEUROLOGIC: A and O x1. LABORATORY DATA: Labs and radiology have been reviewed. WBC 8.7, hemoglobin 10.6, hematocrit 30.7. ASSESSMENT AND PLAN: This is an 87-year-old female with dysphagia. From a gastrointestinal standpoint, there is no significant leakage around the PEG tube site, it is clean. The skin is turgid and without any erythema or sign of infection. Continue using the tube feeds at goal. Thank you for the consult. Cal Mclean MD/ PhD cc: Broderick Bean MD
--- NOTE | 2018-04-15 13:45 | PQF ---
PROVIDER RESPONSE TEXT: Acute Kidney Injury. PEG site Staph MRSA infection REVIEWER QUERY TEXT: Clinical Validity Please clarify if KERRIE is for this admission or a history only of KERRIE ( previous admission) Additional clinical indicators are required to support your documented diagnosis of KERRIE. BUN : 23,17, 24, 27 Creatinine : 0.4, 0.5, 1.0, 0.8 GFR: >60, >60, 52, >60 Please respond and also state in your next progress note whether: -- Condition exists and also please provide clinical indicators to support the diagnosis -- Condition does not exist and also please provide amended documentation in the medical record to cl yoel -- Unable to provide additional clarity regarding the diagnosis -- Other, please specify The patient's Clinical Indicators include: Admitted with hematuria, BUN : 23,17, 24, 27 Creatinine : 0.4, 0.5, 1.0, 0.8 GFR: >60, >60, 52, >60 OR: Bladder fulguration Query created by: Tracey Hoyt on 04/08/2018 11:25 AM Electronically signed by: Broderick Bean MD 04/15/2018 1:42 PM
--- NOTE | 2018-04-15 14:38 | CP.PCM.DIS ---
Provider - Provider Date of Admission: 04/06/18 15:41 Attending physician: Broderick Bean MD Diagnosis - Discharge Diagnosis (1) E-coli UTI Status: Acute (2) MRSA (methicillin resistant staph aureus) culture positive Status: Acute (3) Cystitis Status: Resolved (4) Hematuria Status: Resolved Priority: High (5) Hematoma Status: Resolved (6) Abdominal pain Status: Resolved Priority: High (7) Hydronephrosis Status: Acute Priority: High (8) KERRIE (acute kidney injury) Status: Chronic Priority: High (9) Hypokalemia Status: Acute (10) Hyperglycemia Status: Acute Priority: High (11) Type 2 diabetes mellitus Status: Chronic Priority: High (12) HTN (hypertension) Status: Chronic Priority: High (13) Dementia Status: Chronic Priority: High (14) Infection of PEG site Status: Acute (15) Feeding by G-tube Status: Chronic Priority: High Hospital Course - Lab Results Lab Results: Micro Results 04/06/18 10:42 Blood-Venous Blood Culture - Final NO GROWTH AFTER 5 DAYS 04/06/18 10:42 Blood-Venous Gram Stain - Final TEST NOT PERFORMED 04/07/18 02:00 Peg Site Gram Stain - Final 04/07/18 02:00 Peg Site Wound Culture - Final Proteus Mirabilis Methicillin Resistant S Aureus 04/06/18 16:31 Urine,Clean Catch Urine Culture - Final Escherichia Coli Beta Hemolytic Strep Group B Most Recent Lab Values WBC 8.7 K/uL (4.8-10.8) 04/13/18 06:26 RBC 3.57 Mil/uL (3.80-5.20) L 04/13/18 06:26 Hgb 10.6 g/dL (12.0-16.0) L 04/13/18 06:26 Hct 30.7 % (34.0-47.0) L 04/13/18 06:26 MCV 85.9 fl (81.0-99.0) 04/13/18 06:26 MCH 29.7 pg (27.0-31.0) 04/13/18 06:26 MCHC 34.5 g/dL (33.0-37.0) 04/13/18 06:26 RDW 13.8 % (11.5-14.5) 04/13/18 06:26 Plt Count 193 K/uL (130-400) 04/13/18 06:26 MPV 9.5 fl (7.2-11.7) 04/13/18 06:26 Neut % (Auto) 70.9 % (50.0-75.0) 04/13/18 06:26 Lymph % (Auto) 14.8 % (20.0-40.0) L 04/13/18 06:26 [place] % (Auto) 11.5 % (0.0-10.0) H 04/13/18 06:26 Eos % (Auto) 2.4 % (0.0-4.0) 04/13/18 06:26 Baso % (Auto) 0.4 % (0.0-2.0) 04/13/18 06: Neut # (Auto) 6.2 K/uL (1.8-7.0) 04/13/18 06:26 Lymph # (Auto) 1.3 K/uL (1.0-4.3) 04/13/18 06:26 [place] # (Auto) 1.0 K/uL (0.0-0.8) H 04/13/18 06:26 Eos # (Auto) 0.2 K/uL (0.0-0.7) 04/13/18 06:26 Baso # (Auto) 0.0 K/uL (0.0-0.2) 04/13/18 06:26 Neutrophils % (Manual) 86 % (42-75) H 04/06/18 10:42 Band Neutrophils % 2 % (0-2) 04/06/18 10:42 Lymphocytes % (Manual) 7 % (20-50) L 04/06/18 10:42 Monocytes % (Manual) 4 % (0-10) 04/06/18 10:42 Basophils % (Manual) 1 % (0-2) 04/06/18 10:42 Platelet Estimate Normal (NORMAL) 04/06/18 10:42 RBC Morphology Normal (NORMAL) 04/06/18 10:42 PT 12.2 Seconds (9.8-13.1) 04/06/18 10:42 INR 1.1 04/06/18 10:42 APTT 25.8 Seconds (25.6-37.1) 04/06/18 10:42 pO2 38 mm/Hg (30-55) 04/06/18 10:51 VBG pH 7.43 (7.32-7.43) 04/06/18 10:51 VBG pCO2 37 mmHg (40-60) L 04/06/18 10:51 VBG HCO3 24.7 mmol/L 04/06/18 10:51 VBG Total CO2 25.7 mmol/L (22-28) 04/06/18 10:51 VBG O2 Sat (Calc) 77.2 % (40-65) H 04/06/18 10:51 VBG Base Excess 0.5 mmol/L (0.0-2.0) 04/06/18 10:51 VBG Potassium 4.0 mmol/L (3.6-5.2) 04/06/18 10:51 Sodium 130.0 mmol/L (132-148) L 04/06/18 10:51 Chloride 98.0 mmol/L (98-107) 04/06/18 10:51 Glucose 305 mg/dL (65-105) H 04/06/18 10:51 Lactate 2.9 mmol/L (0.7-2.1) H 04/06/18 10:51 FiO2 21.0 % 04/06/18 10:51 Sodium 137 mmol/l (132-148) 04/14/18 08:18 Potassium 3.5 MMOL/L (3.6-5.0) L 04/14/18 08:18 Chloride 104 mmol/L (98-107) 04/14/18 08:18 Carbon Dioxide 28 mmol/L (22-30) 04/14/18 08:18 Anion Gap 9 (10-20) L 04/14/18 08:18 BUN 12 mg/dl (7-17) 04/14/18 08:18 Creatinine 0.3 mg/dl (0.7-1.2) L 04/14/18 08:18 Est GFR ( Amer) > 60 04/14/18 08:18 Est GFR (Non-Af Amer) > 60 04/14/18 08:18 POC Glucose (mg/dL) 204 mg/dL (65-110) H 04/14/18 11:10 Random Glucose 106 mg/dL (65-105) H 04/14/18 08:18 Hemoglobin A1c 6.2 % (4.2-6.5) 04/07/18 04:25 Calcium 7.8 mg/dL (8.4-10.2) L 04/14/18 08:18 Phosphorus 2.0 mg/dl (2.5-4.5) L 04/14/18 08:18 Magnesium 1.8 MG/DL (1.6-2.3) 04/14/18 08:18 Total Bilirubin 0.5 mg/dl (0.2-1.3) 04/14/18 08:18 AST 72 U/L (14-36) H D 04/14/18 08:18 ALT 76 U/L (9-52) H D 04/14/18 08:18 Alkaline Phosphatase 130 U/L (38-126) H D 04/14/18 08:18 Troponin I 0.0130 ng/mL (0.00-0.120) 04/12/18 20:30 Total Protein 5.7 G/DL (6.3-8.2) L 04/14/18 08:18 Albumin 2.7 g/dL (3.5-5.0) L 04/14/18 08:18 Globulin 3.1 gm/dL (2.2-3.9) 04/14/18 08:18 Albumin/Globulin Ratio 0.9 (1.0-2.1) L 04/14/18 08:18 Triglycerides 71 mg/DL (0-149) 04/07/18 04:25 Cholesterol 116 mg/dL (0-199) 04/07/18 04:25 LDL Cholesterol Direct 59 mg/dL (0-129) 04/07/18 04:25 HDL Cholesterol 51 MG/DL (30-70) 04/07/18 04:25 Lipase 53 U/L (23-300) 04/06/18 10:42 25-OH Vitamin D Total 31.7 NG/ML (30.0-100.0) 04/07/18 04:25 Thyroxine (T4) 7.40 ug/dl (5.5-11.0) 04/07/18 04:25 TSH 3rd Generation 1.33 mIU/ML (0.46-4.68) 04/07/18 04:25 Venous Blood Potassium 4.0 mmol/L (3.6-5.2) 04/06/18 10:51 Urine Color Red (YELLOW) 04/06/18 16:31 Urine Clarity Turbid (Clear) 04/06/18 16:31 Urine pH 6.0 (5.0-8.0) 04/06/18 16:31 Ur Specific [place] 1.022 (1.003-1.030) 04/06/18 16:31 Urine Protein 100 mg/dL (NEGATIVE) 04/06/18 16:31 Urine Glucose (UA) >=500 mg/dL (Normal) 04/06/18 16:31 Urine Ketones Trace mg/dL (NEGATIVE) 04/06/18 16:31 Urine Blood Large (NEGATIVE) 04/06/18 16:31 Urine Nitrate Negative (NEGATIVE) 04/06/18 16:31 Urine Bilirubin Negative (NEGATIVE) 04/06/18 16:31 Urine Urobilinogen 0.2-1.0 mg/dL (0.2-1.0) 04/06/18 16:31 Ur Leukocyte Esterase Neg [place]/uL (Negative) 04/06/18 16:31 Urine RBC (Auto) 8495 /hpf (0-3) H 04/06/18 16:31 Urine WBC Clumps (Auto) Many /hpf (NONE) H 04/06/18 16:31 Urine Microscopic WBC 2093 /hpf (0-5) H 04/06/18 16:31 Urine Bacteria Occ (<OCC) H 04/06/18 16:31 Gentamicin Trough 4.8 ug/mL (0.0-0.9) H* 04/09/18 05:16 C. difficile Ag & Toxin Negative (NEGATIVE) 04/13/18 11:50 Blood Type O POSITIVE 04/08/18 04:45 Blood Type Confirm O POSITIVE 04/07/18 17:25 Antibody Screen Negative 04/08/18 04:45 BBK History Checked Patient has bt 04/08/18 04:45 Discharge Exam - Head Exam Head Exam: NORMOCEPHALIC Discharge Plan - Discharge Medications Prescriptions: Meropenem IV 1 gm in NS [Merrem IV 1 gm Premix] 1 gm IVPB Q8 #24 bag - Follow Up Plan Condition: STABLE Disposition: HOME/ ROUTINE Referrals: Jaclyn Singh MD [Medical Doctor] - Broderick Bean MD [Family Provider] -
== END 2018-04-14 13:08 | disposition home or self-care (01) | DRG 669 ==
LOC: H.ER 09:40 → H.ERHOLD 15:41 → H.TEL 22:12
PROVIDERS: ADMIT Internal Medicine Pulmonary Disease; ATTEND Internal Medicine Pulmonary Disease
PROC: 3E1K78Z Irrigation of Genitourinary Tract using Irrigating Substance, Via Natural or Artificial Opening (ICD-10-PCS; 2018-04-07)
PROC: 3E02340 Introduction of Influenza Vaccine into Muscle, Percutaneous Approach (ICD-10-PCS; 2018-04-07)
PROC: 0T5B8ZZ Destruction of Bladder, Via Natural or Artificial Opening Endoscopic (ICD-10-PCS; principal; 2018-04-07 16:45)
DX: N30.91 Cystitis, unspecified with hematuria (principal); N13.6 Pyonephrosis; K94.22 Gastrostomy infection; N17.9 Acute kidney failure, unspecified; E11.65 Type 2 diabetes mellitus with hyperglycemia; F02.80 Dementia in other diseases classified elsewhere, unspecified severity, without behavioral disturbance, psychotic disturbance, mood disturbance, and anxiety; G30.9 Alzheimer's disease, unspecified; Z85.3 Personal history of malignant neoplasm of breast; Z66 Do not resuscitate; E11.22 Type 2 diabetes mellitus with diabetic chronic kidney disease; I12.9 Hypertensive chronic kidney disease with stage 1 through stage 4 chronic kidney disease, or unspecified chronic kidney disease; N18.9 Chronic kidney disease, unspecified; H91.90 Unspecified hearing loss, unspecified ear; Z88.0 Allergy status to penicillin; Z23 Encounter for immunization; F32.9 Major depressive disorder, single episode, unspecified; F41.9 Anxiety disorder, unspecified; E78.00 Pure hypercholesterolemia, unspecified; R31.0 Gross hematuria; B96.20 Unspecified Escherichia coli [E. coli] as the cause of diseases classified elsewhere; B95.1 Streptococcus, group B, as the cause of diseases classified elsewhere; Z16.12 Extended spectrum beta lactamase (ESBL) resistance; R13.10 Dysphagia, unspecified; B95.62 Methicillin resistant Staphylococcus aureus infection as the cause of diseases classified elsewhere; B96.4 Proteus (mirabilis) (morganii) as the cause of diseases classified elsewhere; E87.6 Hypokalemia; R79.89 Other specified abnormal findings of blood chemistry; I48.91 Unspecified atrial fibrillation; N32.89 Other specified disorders of bladder